=== PATIENT | female | born 1980 | race Two or more races ===

== ENCOUNTER 2024-01-16 14:21 | Outpatient (OUT) | payer OTHER, SELFPAY ==
[2024-01-16 15:08] LABS: Basophils Absolute Auto 0.1 10^3/uL (0.0-0.1); Basophils Percent Auto 0.5 % (0.2-2.0); Eosinophils Absolute Auto 0.2 10^3/uL (0.0-0.7); Eosinophils Percent Auto 2.1 % (0.9-7.0); Hematocrit 39.2 % (36.0-48.0); Hemoglobin 12.4 g/dL (12.0-16.0); Immature Granulocytes Abs Auto 0.04 10^3/uL (0.00-0.03); Immature Granulocytes Pct Auto 0.4 % (0.0-0.5); Lymphocytes Absolute Auto 2.7 10^3/uL (1.2-3.8); Lymphocytes Percent Auto 24.8 % (20.5-60.0); Mean Corpuscular HGB Conc 31.6 g/dL (29.9-35.2); Mean Corpuscular Hemoglobin 26.2 pg (26.7-34.0); Mean Corpuscular Volume 82.9 fL (81.0-99.0); Mean Platelet Volume 9.6 fL (9.5-13.5); Monocytes Absolute Auto 0.8 10^3/uL (0.3-0.8); Monocytes Percent Auto 7.5 % (1.7-12.0); Neutrophils Percent Auto 64.7 % (43.0-75.0); Platelet Count 449 10^3/uL (150-450); Red Blood Count 4.73 10^6/uL (4.20-5.40); Red Cell Distribution Width 14.7 % (11.0-15.0); White Blood Count 10.7 10^3/uL (4.0-11.0)
[2024-01-16 15:30] LABS: Estimated Average Glucose 151 mg/dL; Glycohemoglobin A1C 6.9 % (4.5-6.2)
[2024-01-16 16:00] LABS: Microalbumin Urine Random 5.8 mg/dL (<=30.0)
[2024-01-16 16:04] LABS: Percent Iron Saturation 9.9 %
[2024-01-16 16:11] LABS: Alanine Aminotransferase 46 U/L (14-59); Albumin Globulin Ratio 0.7; Albumin Level 3.2 g/dL (3.4-5.0); Alkaline Phosphatase 76 U/L (46-116); Anion Gap 11.8; Aspartate Amino Transferase 18 U/L (15-37); BUN Creatinine Ratio 17.3; Bilirubin Direct 0.1 mg/dL (0.0-0.2); Bilirubin Total 0.4 mg/dL (0.2-1.0); Calcium 8.5 mg/dL (8.5-10.1); Carbon Dioxide 29.8 mmol/L (21.0-32.0); Chloride 102 mmol/L (98-107); Chol HDL Ratio 3.9; Cholesterol 167 mg/dL (<=200); Estimated GFR (African America >60 (>=60); Estimated GFR (Non-African Ame >60 (>=60); Free T3 2.52 pg/mL (2.18-3.98); Globulin 4.7 g/dL; Glucose 100 mg/dL (74-106); HDL Cholesterol 43 mg/dL (40-60); Magnesium 1.8 mg/dL (1.8-2.4); Potassium 3.6 mmol/L (3.5-5.1); Sodium 140 mmol/L (136-145); Total Protein 7.9 g/dL (6.4-8.2); Triglycerides 183 mg/dL (<=150); VLDL CHOLESTEROL 36.6 mg/dL
[2024-01-16 16:12] LABS: Free T4 1.02 ng/dL (0.76-1.46)
== END 2024-01-16 14:22 | disposition home or self-care (01) ==
LOC: LAB 14:26
PROVIDERS: PCP Family Medicine; Visit Provider Family Medicine
DX: Z00.00 Encounter for general adult medical examination without abnormal findings (principal); E11.65 Type 2 diabetes mellitus with hyperglycemia
CPT/HCPCS: 36415; 80048; 80061; 80076; 82043; 83036; 83540; 83550; 83735; 84439; 84443; 84481; 85025

== ENCOUNTER 2025-02-14 13:17 | Outpatient (OUT) | payer OTHER, SELFPAY ==
--- NOTE | 2025-02-14 13:53 | MM_ITS ---
Patient Name: EL PATEL MR#: [id number] : 1980 Exam Date: 02/14/2025 Ordering Doctor: DR Gerson Stevenson . RADIOLOGY REPORT PROCEDURE: MM TOMOSYNTHESIS SCREENING BI COMPARISON: None. INDICATIONS: Screening Calculator Name NCI Breast Cancer Risk Assessment Tool 5 Year Breast Cancer Risk 0.40% Lifetime Breast Cancer Risk 5.00% Personal Breast Cancer No Personal Ovarian Cancer No Treatments None Family Cancers Aunt-maternal with breast cancer at age 55. LOCATION: [facility] BREAST COMPOSITION: There are scattered areas of fibroglandular density. FINDINGS: DIAGNOSTIC CATEGORY 1--NEGATIVE. LEFT BREAST: No significant suspicious finding. RIGHT BREAST: No significant suspicious finding. RECOMMENDATIONS: ROUTINE MAMMOGRAM AND CLINICAL EVALUATION IN 12 MONTHS. PLEASE NOTE: A NORMAL MAMMOGRAM DOES NOT EXCLUDE THE POSSIBILITY OF BREAST CANCER. A CLINICALLY SUSPICIOUS PALPABLE LUMP SHOULD BE BIOPSIED. Dictated by: Alvaro Walker DO on 02/14/2025 at 17:01 Approved by: Alvaro Walker DO on 02/14/2025 at 17:03
== END 2025-02-14 13:18 | disposition home or self-care (01) ==
LOC: MAMMO 13:17
PROVIDERS: PCP Family Medicine; Visit Provider Family Medicine
DX: Z12.31 Encounter for screening mammogram for malignant neoplasm of breast (principal); Z80.3 Family history of malignant neoplasm of breast
CPT/HCPCS: 77063; 77067

== ENCOUNTER 2025-02-15 09:19 | Outpatient (OUT) | payer OTHER, SELFPAY ==
--- OUTSIDE RECORDS SUMMARY | 2025-02-15 09:21 | XMS_ITS | CCD ---
Author Organization [facility] CliniSysd Care Team Providers Care 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 Name Role Phone ROJELIO, DR CHINEDU Atkinson Consulting Unavailable ROJELIO, DR CHINEDU Atkinson Attending Unavailable SERRATO, DR CHINEDU Atkinson Admitting Unavailable DANGELO, DR GERSON Robison Primary Care Unavailable MARKER, DR ROBLERO Consulting Unavailable MARKER, DR ROBLERO Attending Unavailable MARKER, DR ROBLERO Admitting Unavailable NADERER, DR GERSON Robison Primary Care Unavailable SCHREIBMANVANNA Consulting Unavailable CHIQUI, ADAM Consulting Unavailable CHIQUI, ADAM Attending Unavailable CHIQUI, ADAM Admitting Unavailable NADERER, DR GERSON Robison Primary Care Unavailable KLIPPANGELIKA, DEANDRA Consulting Unavailable MIKAL, DR ROLLE Consulting Unavailable GENTRY, NICOLASA Attending Unavailable GENTRY, NICOLASA Admitting Unavailable NADERER, DR GERSON Robison Primary Care Unavailable NICOLASA RINALDI Consulting Unavailable CHIQUI, ADAM Consulting Unavailable CHIQUI, ADAM Attending Unavailable CHIQUI, ADAM Admitting Unavailable NADERER, DR GERSON Robison Primary Care Unavailable NADERER, DR GERSON Robison Consulting Unavailable NADERER, DR GERSON Robison Primary Care Unavailable NADERER, DR GERSON Robison Attending Unavailable NADERER, DR GERSON Robison Admitting Unavailable POLICARO, SAHIL Consulting Unavailable NADERER, DR GERSON Robison Consulting Unavailable NADERER, DR GERSON Robison Primary Care Unavailable NADERER, DR GERSON Robison Attending Unavailable NADERER, DR GERSON Robison Admitting Unavailable NADERER, DR GERSON Robison Consulting Unavailable NADERER, DR GERSON Robison Primary Care Unavailable NADERER, DR GERSON Robison Attending Unavailable NADERER, DR GERSON Robison Admitting Unavailable ZIEBER, DR INGRID Atkinson Consulting Unavailable NADERER, DR GERSON Robison Primary Care Unavailable NADERER, DR GERSON Robison Attending Unavailable NADERER, DR GERSON Robison Admitting Unavailable NADERER, DR GERSON Robison Consulting Unavailable WEST, DR LIRIANO Consulting Unavailable NADERER, DR GERSON Robison Primary Care Unavailable NADERER, DR GERSON Robison Attending Unavailable NADERER, DR GERSON Robison Admitting Unavailable ZIEBER, DR INGRID Atkinson Consulting Unavailable NADERER, DR GERSON Robison Consulting Unavailable Scovanner, Roberto Unavailable MD Gerson Pierson Primary Care Provider [phone] MD Juarez Griffiths Attending Provider MD Gerson Pierson Primary Care Provider [phone] CHRISTIANE Diallo Attending Provider Gerson Pierson MD Primary Care Provider Gerson Pierson MD Unavailable GERSON PIERSON Attending Unavailable GERSON PIERSON Attending Unavailable FRANCHESCA BOTELLO Referring Unavailable FRANCHESCA BOTELLO Attending Unavailable GERSON PIERSON Attending Unavailable FRANCHESCA BOTELLO Referring Unavailable FRANCHESCA BOTELLO Attending Unavailable Ana Diallo Admitting Unavailable Ana Diallo Attending Unavailable Gerson Pierson Primary Care Unavailable Gerson Pierson Primary Care Unavailable Roberto Rodriguez Admitting Unavailable Roberto Rodriguez Attending Unavailable Gerson Pierson MD Primary Care Provider [phone] Roberto Rodriguez APRN Attending Provider Medications Current Medications Medication Drug Class(es) Dates Sig (Normalized) Sig (Original) atorvastatin 40 mg oral tablet (5 sources) HMG-CoA Reductase Inhibitor Start: 03-20-2024 take 1 tablet by mouth once daily Atorvastatin 40 mg tablet Active 40 MG PO Daily September 03, 2024 12:00am cholecalciferol 0.05 mg oral tablet (12 sources) Vitamin D Start: 08-14-2023 take 1 tablet by mouth once daily Cholecalciferol (Vitamin D3) 50 mcg (2,000 unit) tablet Active 50 MCG PO Daily August 14, 2023 12:00am take 1 capsule by [facility] every twenty-four hours Vitamin D3 50 MCG (1999 UT) 1 capsule Orally Once a day Active famotidine 40 mg oral tablet (10 sources) Histamine-2 Receptor Antagonist Start: 01-09-2024 End: 01-15-2025 take 1 tablet by mouth twice daily Famotidine 40 mg tablet Active 40 MG PO Twice daily 60 January 15, 2025 3:10pm Start: 09-18-2023 take [address] [facility] every twelve hours Famotidine 40 MG 1 TABLET Orally Twice a day for 30 days Aug, Active Glucose (5 sources) Glucose SOS 15 G M as directed Orally Active lamoTRIgine 25 mg oral tablet (6 sources) Mood Stabilizer, Anti-epileptic Agent Start: 08-02-2024 take 1 tablet by mouth once daily at bedtime, then take 2 tablets by mouth once daily at bedtime lamoTRIgine (LaMICtal) 25 MG tablet Indications: Major depressive disorder, recurrent episode, moderate (CMS/HCC) 1 PO QHS x 2 weeks then 2 PO QHS 60 tablet 3 08/02/2024 Active Start: 06-11-2024 take 2 tablets by mo uth once daily at bedtime Lamotrigine 25 mg tablet Active 50 MG PO Daily at bedtime June 11, 2024 12:00am Start: 06-11-2024 take 50 mg by mouth once daily at bedtime Lamotrigine Active 50 MG PO Daily at bedtime June 11, 2024 12:00am linaclotide 0.29 mg oral capsule (6 sources) Guanylate Cyclase-C Agonist Start: 06-11-2024 End: 07-07-2024 take 1 capsule by mouth once daily in the morning Linaclotide (Linzess) 290 mcg capsule Active 290 MCG PO Every morning as needed July 07, 2024 1:28pm Take 1 capsule orally every morning. losartan potassium 25 mg oral tablet (2 sources) Angiotensin 2 Receptor Keila Start: 01-24-2025 take 1 tablet by mouth once daily losartan (Cozaar) 25 MG tablet Indications: Essential hypertension, benign (CMS/HCC) Take 1 tablet (25 mg) by mouth Daily 30 tablet 5 01/24/2025 Active Start: 01-24-2025 take 1 tablet by raysa th once daily losartan (Cozaar) 25 MG tablet Indications: Essential hypertension, benign (CMS/HCC) Take 1 tablet (25 mg) by mouth Daily 30 tablet 5 01/24/2025 Active 24 hr metFORMIN hydrochloride 500 mg extended release oral tablet (15 sources) Biguanide Start: 08-26-2024 take 2 tablets by mouth every twenty-four hours in the morning metFORMIN XR (Glucophage-XR) 500 MG 24 hr tablet Indications: Type 2 diabetes mellitus with hyperglycemia, without long-term current use of insulin (CMS/HCC) Take 2 tablets (1,000 mg) by mouth in the morning and 2 tablets (1,000 mg) before bedtime. 360 tablet 08/26/2024 Active Start: 07-07-2024 Metformin 500 mg tablet extended release 24 hr Active 1000 MG PO Twice daily July 07, 2024 12:00am Start: 07-07-2024 take 1000 mg by mout h twice daily Metformin Active 1000 MG PO Twice daily July 07, 2024 12:00am Start: 08-14-2023 End: 07-07-2024 take 1 tablet by mouth twice daily Metformin 500 mg Tablet Discontinued 500 MG PO Twice daily August 14, 2023 12:00am July 07, 2024 1:31pm take 1 tablet by raysa th every twenty-four hours metFORMIN HCl 500 MG 1 tablet with a meal Orally Once a day Active metoprolol tartrate 25 mg oral tablet (17 sources) beta-Adrenergic Keila Start: 03-13-2018 take 1 tablet by mouth twice daily Metoprolol Tartrate 25 mg Tablet Active 25 MG PO Twice daily March 13, 2018 12:00am take 1 capsule by mouth once enoch ly Metoprolol Succinate 25 MG 1 capsule Orally Once a day Active Metoprolol Tartr ate Not-Taking/PRN Metoprolol Tartr ate Not-Taking ondansetron 4 mg oral tablet (14 sources) Serotonin-3 Receptor Antagonist Start: 03-30-2024 take 1 tablet by mouth three times daily as needed Ondansetron Hcl 4 mg tablet Active 4 MG PO Three times daily as needed June 11, 2024 12:00am Start: 09-18-2023 take 1 tablet by raysa th three times daily Ondansetron HCl 4 MG 1 tablet Orally three times daily for 30 days Aug, Active Zofran Active phentermine hydrochloride 37.5 mg oral tablet (8 sources) Sympathomimetic Amine Anorectic Start: 04-17-2024 End: 01-24-2025 take 1 tablet by mouth before mealtime phentermine (Adipex-P) 37.5 MG tablet Indications: Morbid obesity due to excess calories (CMS/HCC) Take 1 tablet (37.5 mg) by mouth in the morning. Take before meals. 30 tablet 04/17/2024 01/24/2025 Discontinued Adipex-P Not-Osvaldo ing/PRN Adipex-P Not-Osvaldo ing plecanatide 3 mg oral tablet (4 sources) Start: 01-15-2024 End: 01-24-2025 take 1 tablet by mouth in the morning Trulance tablet tablet Take 3 mg by mouth in the morning. 01/15/2024 01/24/2025 Discontinued Start: 09-18-2023 take 1 tablet by raysa twice daily Trulance 3 MG 1 tablet Orally twice daily for 30 days Aug, Active polyethylene glycol 3350 [id number] mg powder for oral solution (5 sources) Osmotic Laxative Start: 07-25-2023 MiraLax 17 GM 1 packet mixed with 8 ounces of fluid Orally three times daily for 30 days Jun, Active semaglutide 14 mg oral tablet (12 sources) Start: 05-07-2024 take 1 tablet by mouth before mealtime semaglutide (Rybelsus) 14 MG tablet Indications: Type 2 diabetes mellitus with hyperglycemia, without long-term current use of insulin ([facility]) Take 1 tablet (14 mg) by mouth in the morning. Take before meals. 30 tablet 5 05/07/2024 Active Start: 08-14-2023 End: 06-11-2024 take 1 tablet by mouth once daily Semaglutide (Rybelsus) 7 mg tablet Discontinued 7 MG PO Daily August 14, 2023 12:00am June 11, 2024 3:29pm Semaglutide (Rybelsus) 7 mg tablet (3 sources) Start: 06-11-2024 take 1 tablet by mouth once daily Semaglutide (Rybelsus) 7 mg tablet Active 14 MG PO Daily June 11, 2024 2:27pm Start: 06-11-2024 take 1 tablet by raysa once daily Semaglutide (Rybelsus) 7 mg tablet Active 14 MG PO Daily June 11, 2024 3:27pm sucralfate 100 mg/ml oral suspension (5 sources) Aluminum Complex take 10 mL by mouth four times daily 1 hour(s) before bedtime Sucralfate 1 GM/10ML 10 mL 1 hour before meals and at bedtime on an empty stomach Orally Four times a day Active take 10 mL by mouth four times daily 1 hour(s) before bedtime Sucralfate 1 GM/10ML 10 mL 1 hour before meals and at bedtime on an empty stomach Orally Four times a day Active temazepam 30 mg oral capsule (3 sources) Benzodiazepine Start: 02-15-2024 End: 01-24-2025 temazepam (Restoril) 30 MG capsule Indications: Primary insomnia Take 1 capsule (30 mg) by mouth as needed at bedtime for sleep 30 capsule 2 02/15/2024 01/24/2025 Discontinued tenapanor 50 mg oral tablet (2 sources) Tenapanor HCl (Ibsrela) 50 MG tablet Take by mouth Active Tenapanor (Ibsrela) 50 mg tablet (2 sources) Start: 09-03-2024 take 1 tablet by mouth once daily at dinner Tenapanor (Ibsrela) 50 mg tablet Active 50 MG PO Twice daily 60 September 03, 2024 12:00am must administer immediately before first meal of day/breakfast and dinner Start: 09-03-2024 take 1 tablet by raysa th once daily at dinner Tenapanor (Ibsrela) 50 mg tablet Active 50 MG PO Twice daily 60 September 02, 2024 11:00pm must administer immediately before first meal of day/breakfast and dinner traZODone hydrochloride 50 mg oral tablet (15 sources) Serotonin Reuptake Inhibitor Start: 03-16-2018 End: 07-07-2024 take 1 tablet by mouth once daily at bedtime as needed Trazodone 50 mg tablet Active 50 MG PO Daily at bedtime as needed July 07, 2024 1:30pm take 1 tablet by mouth at bedtim e traZODone (Desyrel) 100 MG tablet Take 100 mg by mouth at bedtime Active 24 hr venlafaxine 75 mg extended release oral capsule (20 sources) Serotonin and Norepinephrine Reuptake Inhibitor Start: 01-16-2024 take 1 capsule by mouth every twenty-four hours in the morning venlafaxine XR (Effexor XR) 150 MG 24 hr capsule Indications: Major depressive disorder, recurrent episode, moderate (CMS/HCC) Take 1 capsule (150 mg) by mouth in the morning. Do not crush or chew.. 30 capsule 5 01/16/2024 Active Start: 03-13-2018 End: 06-11-2024 take 1 capsule by mouth once daily Venlafaxine (Effexor Xr) 75 mg Capsule,Extended Release 24hr Discontinued 75 MG PO Daily March 16, 2018 1:19pm June 11, 2024 3:29pm Venlafaxine HCl Not-Taking/PRN Venlafaxine HCl Not-Taking Completed/Discontinued Medications Medication Drug Class(es) Dates Sig (Normalized) Sig (Original) amitriptyline hydrochloride 25 mg oral tablet (6 sources) Tricyclic Antidepressant Start: 06-11-2024 End: 07-07-2024 take 1 tablet by mouth once daily at bedtime Amitriptyline 25 mg tablet Discontinued 25 MG PO Daily at bedtime June 11, 2024 12:00am July 07, 2024 1:28pm amoxicillin 875 mg oral tablet (5 sources) Penicillin-class Antibacterial Start: 01-28-2017 take 1 tablet by mouth every twelve hours Amoxicillin 875 MG 1 tablet Orally every 12 hrs for 10 day(s) Jan, Not-Taking/PRN bisacodyl 5 mg delayed release oral tablet (3 sources) Stimulant Laxative Start: 06-11-2024 End: 07-07-2024 Bisacodyl (Dulcolax (Bisacodyl)) 5 mg tablet,delayed release (DR/EC) Discontinued 5 MG PO .prn as needed June 11, 2024 12:00am July 07, 2024 1:28pm Brompheniramine / Pseudoephedrine (5 sources) alpha-Adrenergic Agonist Start: 02-01-2017 take 10 mL by mouth every six hours as needed Bromfed DM 30-2-10 MG/5ML 10 ml as needed Orally every 6 hrs, prn for 10 days Jan, Not-Taking/PRN Start: 02-01-2017 take 10 mL by mouth every six hours as needed Bromfed DM 30-2-10 MG/5ML 10 ml as needed Orally every 6 hrs, prn for 10 days Jan, Not-Taking cephalexin 500 mg oral capsule (3 sources) Cephalosporin Antibacterial Start: 07-07-2024 End: 09-03-2024 take 1 capsule by mouth every eight hours Cephalexin 500 mg capsule Discontinued 500 MG PO Q8H 16 06July 07, 2024 12:00am September 03, 2024 2:05pm ciprofloxacin 3 mg/ml ophthalmic solution (3 sources) Quinolone Antimicrobial Start: 07-07-2024 End: 10-08-2024 Ciprofloxacin Hcl 0.3 % drops Discontinued 0 EYE-BOTH .COMPLEX 1 July 07, 2024 12:00am September 03, 2024 2:06pm put 1-2 drops in affected eye(s) every 2hr up to 8 times/day x2days; then 4 times/day x5days Eye-Both clonazePAM 0.5 mg oral tablet (9 sources) Benzodiazepine Start: 03-13-2018 End: 03-16-2018 take 1 tablet by mouth three times daily as needed for anxiety Clonazepam (Klonopin) 0.5 mg Tablet Discontinued 0.5 MG PO Three times daily as needed for Anxiety March 13, 2018 12:00am March 16, 2018 1:18pm clonazePAM Not-T aking/PRN clonazePAM Not-T aking fluticasone propionate 0.05 mg/actuat metered dose nasal spray (5 sources) Corticosteroid Start: 01-28-2017 take 1 spray(s) nasal route once daily as needed Fluticasone Propionate 50 MCG/ACT 1 spray in each nostril Nasally Once a day for 21 days Jan, Not-Taking/PRN Start: 01-28-2017 take 1 spray(s) nasa l route once daily Fluticasone Propionate 50 MCG/ACT 1 spray in each nostril Nasally Once a day for 21 days Jan, Not-Taking glipiZIDE 10 mg oral tablet (8 sources) Sulfonylurea Start: 01-09-2024 End: 06-11-2024 take 1 tablet by mouth once daily Glipizide 10 mg tablet Discontinued 10 MG PO Daily January 09, 2024 1:00am June 11, 2024 3:25pm take 1 tablet by raysa th once daily 30 minutes before breakfast glipiZIDE 10 MG 1 tablet 30 minutes before breakfast Orally Once a day Active hydroCHLOROthiazide 25 mg oral tablet (4 sources) Thiazide Diuretic Start: 03-16-2018 End: 08-14-2023 take 1 tablet by mouth once daily Hydrochlorothiazide 25 mg Tablet Discontinued 25 MG PO Daily March 16, 2018 12:00am August 14, 2023 1:23pm Ketorolac (10 sources) Nonsteroidal Anti-inflammatory Drug, Cyclooxygenase Inhibitor Start: 08-04-2016 Toradol per 15 mg 08 Jul, 2016 4 ug take 1 tablet by raysa th every six hours at mealtime as needed Ketorolac Tromethamine 10 MG 1 tablet wi th food or milk as needed Orally every 6 hrs Active lactulose 667 mg/ml oral solution (5 sources) Osmotic Laxative Start: 01-09-2024 End: 06-11-2024 take 1 mL by mouth twice daily Lactulose 10 gram/15 mL (15 mL) solution Discontinued 15 ML PO Twice daily January 09, 2024 1:00am June 11, 2024 3:26pm Start: 09-27-2023 take 15 mL by mouth twice shar y Lactulose 10 GM/15ML 15 mL twice a day Orally daily for 30 days Sep, Active Start: 09-27-2023 take 15 mL by mouth twice shar y Lactulose 10 GM/15ML 15 mL twice a day Orally daily for 30 days Sep, Active meloxicam 7.5 mg oral tablet (12 sources) Nonsteroidal Anti-inflammatory Drug Start: 06-11-2024 End: 01-15-2025 take 2 tablets by mouth once daily Meloxicam 7.5 mg tablet Discontinued 15 MG PO Daily June 11, 2024 3:26pm January 15, 2025 2:55pm Start: 06-11-2024 take 15 mg by mouth once daily Meloxicam Active 15 MG PO Daily June 11, 2024 3:26pm Start: 08-14-2023 End: 06-11-2024 take 1 tablet by mouth once daily Meloxicam 7.5 mg tablet Discontinued 7.5 MG PO Daily August 14, 2023 12:00am June 11, 2024 3:29pm omeprazole 40 mg delayed release oral capsule (12 sources) Proton Pump Inhibitor Start: 01-09-2024 End: 06-11-2024 Omeprazole 40 mg capsule,delayed release(DR/EC) Discontinued 40 MG PO Twice daily January 09, 2024 1:00am June 11, 2024 3:27pm Take 1 tablet orally 30 minutes before morning and evening meal Start: 08-14-2023 End: 06-11-2024 take 1 capsule by mouth once daily Omeprazole 40 mg capsule,delayed release(DR/EC) Discontinued 40 MG PO Daily August 14, 2023 12:00am June 11, 2024 3:27pm Plecanatide (Trulance) 3 mg tablet (3 sources) Start: 01-09-2024 End: 01-15-2025 take 1 tablet by mouth once daily Plecanatide (Trulance) 3 mg tablet Discontinued 3 MG PO Daily January 09, 2024 1:00am January 15, 2025 2:55pm Take 1 tablet orally once a day Start: 01-09-2024 End: 01-15-2025 take 1 tablet by mouth once daily Plecanatide (Trulance) 3 mg tablet Discontinued 3 MG PO Daily January 09, 2024 12:00am January 15, 2025 1:55pm Take 1 tablet orally once a day Start: 01-09-2024 take 1 tablet by raysa th once daily Plecanatide (Trulance) 3 mg tablet Active 3 MG PO Daily January 09, 2024 1:00am Take 1 tablet orally once a day sulfamethoxazole 800 mg / trimethoprim 160 mg oral tablet (4 sources) Dihydrofolate Reductase Inhibitor Antibacterial, Sulfonamide Antimicrobial Start: 03-16-2018 End: 01-09-2024 take 1 tablet by mouth twice daily Sulfamethoxazole-Trimethoprim 800-160 mg Tablet Discontinued 1 TAB PO Twice daily March 16, 2018 12:00am January 09, 2024 2:07pm TB Test (10 sources) Start: 10-30-2017 TB Test Oct, .01 mL Start: 10-31-2016 TB Test Oct 1 mL Problems Active Problems Problem Classification Problem Date Documented Da te Episodic/Chronic Abdominal pain (11 sources) Right upper quadrant pain; Translations: [Unspecified abdominal pain] Onset: 01-05-2023 Episodic Alcohol-related disorders (4 sources) Alcohol abuse; Translations: [Alcohol abuse, uncomplicated] 04-04-2018 Chronic Comment on above: Problem List clean-u p per request of Phys. EHR Cmte Anxiety disorders (5 sources) Generalized anxiety disorder; Translations: [Generalized anxiety disorder] Onset: 01-16-2024 01-16-2024 Chronic Diabetes mellitus with complications (14 sources) Type 2 diabetes mellitus with hyperglycemia; Translations: [Polyneuropathy due to diabetes mellitus] Onset: 02-04-2022 Chronic Diabetes mellitus without complication (1 source) Type 2 diabetes mellitus without complications; Translations: [TYPE 2 DM WITHOUT COMPLICATIONS] Onset: 11-30-2022 Chronic Esophageal disorders (17 sources) Gastro-esophageal reflux disease without esophagitis; Translations: [Gastroesophageal reflux disease] Onset: 01-09-2023 Chronic Essential hypertension (5 sources) Benign essential hypertension; Translations: [Essential (primary) hypertension] Onset: 01-16-2024 01-16-2024 Chronic Fluid and electrolyte disorders (1 source) Hypokalemia; Translations: [HYPOKALEMIA] Onset: 11-16-2022 Episodic Headache; including migraine (3 sources) Migraine without aura, not refractory ; Translations: [Migraine without aura, not intractable, without status migrainosus] Onset: 01-16-2024 01-16-2024 Chronic Inflammation; infection of eye (except that caused by tuberculosis or sexually transmitteddisease) (1 source) Unspecified acute conjunctivitis, bilateral; Translations: [Acute conjunctivitis, unspecified] 07-07-2024 Episodic Menstrual disorders (1 source) Amenorrhea, unspecified; Translations: [Absence of menstruation] 07-07-2024 Chronic Miscellaneous mental health disorders (5 sources) Primary insomnia; Translations: [Primary insomnia] Onset: 01-16-2024 01-16-2024 Chronic Mood disorders (9 sources) Major depression, single episode; Translations: [Major depressive disorder, single episode, unspecified] Onset: 01-16-2024 04-04-2018 Chronic Comment on above: Problem List clean-u p per request of Phys. EHR Cmte Nausea and vomiting (10 sources) Nausea with vomiting, unspecified; Translations: [Nausea] Onset: 11-13-2022 Episodic Noninfectious gastroenteritis (1 source) Noninfective gastroenteritis and colitis, unspecified; Translations: [NONINFECTIVE GE AND COLITIS UNS] Onset: 11-30-2022 Episodic Nutritional deficiencies (4 sources) Vitamin D deficiency, unspecified; Translations: [Vitamin D deficiency] Onset: 08-24-2022 01-16-2024 Chronic Other aftercare (1 source) Other nursing home (current) drug therapy; Translations: [OTH SENIOR LIVING CURRENT DRUG THERAPY] Onset: 11-30-2022 Episodic Other aftercare (1 source) 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; Translations: [SENIOR LIVING USE ORAL HYPOGLYCEMIC DX] Onset: 01-04-2023 Episodic Other circulatory disease (1 source) Other specified symptoms and signs involving the circulatory and respiratory systems; Translations: [OTH SPEC SX SIGNS INVLV CIRC RS] Onset: 11-30-2022 Episodic Other endocrine disorders (4 sources) Hypoglycemia, unspecified; Translations: [HYPOGLYCEMIA UNSPECIFIED] Onset: 09-02-2022 Chronic Other gastrointestinal disorders (5 sources) Irritable bowel syndrome characterized by constipation; Translations: [Irritable bowel syndrome without diarrhea] 01-09-2024 Chronic Other gastrointestinal disorders (3 sources) Irritable bowel syndrome with constipation; Translations: [Irritable bowel syndrome] Onset: 02-03-2025 06-11-2024 Chronic Other gastrointestinal disorders (1 source) Other constipation; Translations: [OTHER CONSTIPATION] Onset: 01-09-2023 Episodic Other gastrointestinal disorders (1 source) Diarrhea, unspecified; Translations: [DIARRHEA UNSPECIFIED] Onset: 11-16-2022 Episodic Other gastrointestinal disorders (5 sources) Constipation; Translations: [Constipation, unspecified] Episodic Other gastrointestinal disorders (3 sources) Constipation, unspecified Episodic Other gastrointestinal disorders (3 sources) Abdominal bloating; Translations: [Abdominal distension (gaseous)] 01-05-2024 Episodic Other gastrointestinal disorders (3 sources) Abdominal distension (gaseous); Translations: [Flatulence, eructation, and gas pain] Onset: 02-03-2025 06-11-2024 Episodic Other nutritional; endocrine; and metabolic disorders (1 source) Morbid obesity; Translations: [Morbid (severe) obesity due to excess calories] Onset: 01-16-2024 01-16-2024 Chronic Other nutritional; endocrine; and metabolic disorders (4 sources) Severe obesity; Translations: [Class 2 severe obesity due to excess calories with serious comorbidity and body mass index (BMI) of 39.0 to 39.9 in adult (CMS/[facility])] Onset: 01-16-2024 01-24-2025 Chronic Other screening for suspected conditions (not mental disorders or infectious disease) (2 sources) Patient encounter status; Translations: [Encounter for screening mammogram for malignant neoplasm of breast] 01-24-2025 Episodic Residual codes; unclassified (3 sources) Obstructive sleep apnea syndrome; Translations: [Obstructive sleep apnea (adult) (pediatric)] Onset: 01-16-2024 01-16-2024 Chronic Unclassified (1 source) COUGH, UNSPECIFIED; Translations: [COUGH, UNSPECIFIED] Onset: 11-30-2022 Unclassified (1 source) CONTACT W/AND (SUSP) EXPOS COVID-19; Translations: [CONTACT W/AND (SUSP) EXPOS COVID-19] Onset: 11-16-2022 Viral infection (1 source) COVID-19; Translations: [COVID-19] Onset: 11-30-2022 Past or Other Problems Problem Classification Problem Date Documented Da te Episodic/Chronic E Codes: Natural/environment (1 source) Exposure to other specified factors, initial encounter; Translations: [EXPOSURE OTHER SPEC FACTORS INITIAL] Onset: 06-28-2022 Episodic E Codes: Struck by; against (1 source) Other cause of strike by thrown, projected or falling object, initial encounter; Translations: [OTH CAUSE STRIK THRWN/FALL OBJ INIT] Onset: 07-25-2022 Episodic Genitourinary symptoms and ill-defined conditions (2 sources) Dysuria; Translations: [Dysuria] Onset: 07-07-2024 07-07-2024 Episodic Other injuries and conditions due to external causes (4 sources) Unspecified injury of right foot, initial encounter; Translations: [UNSPECIFIED INJURY RT FOOT INITIAL] Onset: 07-22-2022 Episodic Other injuries and conditions due to external causes (1 source) Unspecified injury of left lower leg, initial encounter; Translations: [UNS INJURY LT LOWER LEG INITIAL ENC] Onset: 06-28-2022 Episodic Other non-traumatic joint disorders (3 sources) Pain in left knee; Translations: [PAIN IN LEFT KNEE] Onset: 06-19-2022 Episodic Spondylosis; intervertebral disc disorders; other back problems (3 sources) Chronic low back pain; Translations: [Lumbago with sciatica, left side] Onset: 01-16-2024 01-16-2024 Episodic Results Test Name Value Interpretation Reference Range Facility Alanine aminotransferase [En zymatic activity/volume] in Serum or PlasmaOrdered By: Roberto Rodriguez on 02-03-2025 ALT [Catalytic activity/Vol] Alanine aminotransferase [Enzymatic activity/volume] in Serum or Plasma [facility] Albumin [Mass/volume] in Ser um or Plasma by Bromocresol green (BCG) dye binding methoOrdered By: Roberto Rodriguez on 02-03-2025 Albumin BCG dye [Mass/Vol] Albumin [Mass/volume] in Serum or Plasma by Bromocresol green (BCG) dye binding metho 3.5-5.7 [facility] Alkaline phosphatase [Enzyma tic activity/volume] in Serum or PlasmaOrdered By: Roberto Rodriguez on 02-03-2025 ALP [Catalytic activity/Vol] Alkaline phosphatase [Enzymatic activity/volume] in Serum or Plasma 34-104 [facility] Aspartate aminotransferase [ Enzymatic activity/volume] in Serum or PlasmaOrdered By: Roberto Rodriguez on 02-03-2025 AST [Catalytic activity/Vol] Aspartate aminotransferase [Enzymatic activity/volume] in Serum or Plasma Low 13-39 [facility] Basophils Auto (Bld) [#/Vol] Ordered By: Roberto Rodriguez on 02-03-2025 Basophils (Bld) [#/Vol] Automated basoph il count 0.0-0.2 [facility] Basophils/100 WBC Auto (Bld) Ordered By: Roberto Rodriguez on 02-03-2025 Basophils/100 WBC (Bld) Automated basophil % . [facility] Bilirubin.total [Mass/volume ] in Serum or PlasmaOrdered By: Roberot Rodriguez on 02-03-2025 Bilirubin [Mass/Vol] Bilirubin.total [Mass/volume] in Serum or Plasma 0.3-1.0 [facility] Calcium [Mass/volume] in Ser um or PlasmaOrdered By: Roberto Rodriguez on 02-03-2025 Calcium [Mass/Vol] Calcium [Mass/volume ] in Serum or Plasma 8.6-10.3 [facility] Carbon dioxide, total [Moles /volume] in Serum or PlasmaOrdered By: Roberto Rodriguez on 02-03-2025 CO2 [Moles/Vol] Carbon dioxide, tota l [Moles/volume] in Serum or Plasma 21.0-31.0 [facility] Chloride [Moles/volume] in S iveth or PlasmaOrdered By: Roberto Rodriguez on 02-03-2025 Chloride [Moles/Vol] Chloride [Moles/volume] in Serum or Plasma 98-107 [facility] Complete Blood Count Auto Di ffon 02-03-2025 Basophils (Bld) [#/Vol] 0.1 10*3/uL Normal 0.0-0.2 [facility] Comment on above: Result Comment: PERF ORMED BY: [place] [address] PATHOLOGIST COMPLAINT INSPECTOR RAY BANKS M.D. Performed By: #### C MP, CBC #### [address] Basophils/100 WBC (Bld) 0.5 % Normal . [facility] Comment on above: Performed By: #### C MP, CBC #### [address] Eosinophils (Bld) [#/Vol] 0.3 10*3/uL Normal 0.0-0.45 [facility] Comment on above: Performed By: #### C MP, CBC #### [address] Eosinophils/100 WBC (Bld) 2.8 % Normal . [facility] Comment on above: Performed By: #### C MP, CBC #### [address] Erythrocyte distribution width (RBC) [Ratio] 14.4 % Normal 11.9-15.3 [facility] Comment on above: Performed By: #### C MP, CBC #### [address] Hematocrit (Bld) [Volume fraction] 38.8 % Normal 34.0-46.4 [facility] Comment on above: Performed By: #### C MP, CBC #### [address] Hemoglobin (Bld) [Mass/Vol] 13.3 g/dL Normal 11.8-15.4 [facility] Comment on above: Performed By: #### C MP, CBC #### [address] Lymphocytes (Bld) [#/Vol] 2.3 10*3/uL Normal 1.00-4.8 [facility] Comment on above: Performed By: #### C MP, CBC #### [address] Lymphocytes/100 WBC (Bld) 22.8 % Normal . [facility] Comment on above: Performed By: #### C MP, CBC #### [address] MCH (RBC) [Entitic mass] 27.9 pg Normal 24.7-34.3 [facility] Comment on above: Performed By: #### C MP, CBC #### [address] MCV (RBC) [Entitic vol] 81.4 fL Normal 80-100 [facility] Comment on above: Performed By: #### C MP, CBC #### [address] Mean Corpuscular HGB Conc 34.3 g/dL Normal 32.0-35.0 [facility] Comment on above: Performed By: #### C MP, CBC #### [place] [address] [place] Monocytes (Bld) [#/Vol] 0.8 10*3/uL Normal 0.0-0.8 [facility] Comment on above: Performed By: #### C MP, CBC #### [address] Monocytes/100 WBC (Bld) 7.7 % Normal . [facility] Comment on above: Performed By: #### C MP, CBC #### [place] [address] [place] Neutrophils (Bld) [#/Vol] 6.8 10*3/uL Normal 1.8-7.7 [facility] Comment on above: Performed By: #### C MP, CBC #### [address] Neutrophils/100 WBC (Bld) 66.2 % Normal . [facility] Comment on above: Performed By: #### C MP, CBC #### [address] NRBC% 0.0 /100{WBC} Normal 0-0.5 [facility] Comment on above: Performed By: #### C MP, CBC #### [address] Platelet mean volume (Bld) [Entitic vol] 8.1 fL Normal 6.3-10.7 [facility] Comment on above: Performed By: #### C MP, CBC #### [address] Platelets (Bld) [#/Vol] 356 10*3/uL Normal 150-450 [facility] Comment on above: Performed By: #### C MP, CBC #### [address] RBC (Bld) [#/Vol] 4.77 10*6/uL Normal 3.60-5.00 [facility] Comment on above: Performed By: #### C MP, CBC #### [address] WBC (Bld) [#/Vol] 10.3 10*3/uL Normal 3.8-11.6 [facility] Comment on above: Performed By: #### C MP, CBC #### [address] Comprehensive Metabolic Pane trever 02-03-2025 Albumin [Mass/Vol] 4.0 g/dL Normal 3.5-5.7 [facility] Comment on above: Performed By: #### C MP, CBC #### [address] Albumin/Globulin [Mass ratio] 1.3 {ratio} Normal [facility] Comment on above: Performed By: #### C MP, CBC #### [address] ALP [Catalytic activity/Vol] 64 U/L Normal 34-104 [facility] Comment on above: Result Comment: PERF ORMED BY: [place] [address] PATHOLOGIST COMPLAINT INSPECTOR RAY BANKS M.D. Performed By: #### C MP, CBC #### [address] ALT [Catalytic activity/Vol] 16 U/L Normal 7-52 [facility] Comment on above: Performed By: #### C MP, CBC #### [address] Anion gap [Moles/Vol] 9.2 mmol/L Normal 6.0-15.0 [facility] Comment on above: Performed By: #### C MP, CBC #### [address] AST [Catalytic activity/Vol] 12 U/L Low 13-39 [facility] Comment on above: Performed By: #### C MP, CBC #### [address] Bilirubin [Mass/Vol] 0.6 mg/dL Normal 0.3-1.0 [facility] Comment on above: Performed By: #### C MP, CBC #### [address] Calcium [Mass/Vol] 9.3 mg/dL Normal 8.6-10.3 [facility] Comment on above: Performed By: #### C MP, CBC #### [address] Chloride [Moles/Vol] 104 mmol/L Normal 98-107 [facility] Comment on above: Performed By: #### C MP, CBC #### [place] [address] [place] CO2 [Moles/Vol] 30.7 mmol/L Normal 21.0-31.0 [facility] Comment on above: Performed By: #### C MP, CBC #### [place] [address] [place] Creatinine [Mass/Vol] 0.67 mg/dL Normal 0.60-1.20 [facility] Comment on above: Performed By: #### C MP, CBC #### [place] [address] [place] GFR/1.73 sq M.predicted MDRD (S/P/Bld) [Vol rate/Area] mL/min/{1.73_m2} Normal [facility] Comment on above: Performed By: #### C MP, CBC #### [address] Globulin (S) [Mass/Vol] 3.2 g/dL Normal T [facility] Comment on above: Performed By: #### C MP, CBC #### [address] Glucose [Mass/Vol] 94 mg/dL Normal 70-100 [facility] Comment on above: Result Comment: [facility] Glucose Reference Range is dependent on time and content of last meal. Glucose of more than 200 mg/dL in a nonstressed, ambulatory subject supports the diagnosis of Diabetes Mellitus. ADA recommended reference range Performed By: #### C MP, CBC #### [address] Potassium [Moles/Vol] 3.9 mmol/L Normal 3.5-5.1 [facility] Comment on above: Performed By: #### C MP, CBC #### [address] Protein [Mass/Vol] 7.2 g/dL Normal 6.4-8.9 [facility] Comment on above: Performed By: #### C MP, CBC #### [place] [address] [place] Sodium [Moles/Vol] 140 mmol/L Normal 136-145 [facility] Comment on above: Performed By: #### C MP, CBC #### [address] Urea nitrogen [Mass/Vol] 10 mg/dL Normal 7-25 [facility] Comment on above: Performed By: #### C MP, CBC #### [facility] [address] Creatinine [Mass/volume] in Serum or PlasmaOrdered By: Roberto Rodriguez on 02-03-2025 Creatinine [Mass/Vol] Creatinine [Mass/volume] in Serum or Plasma 0.60-1.20 [facility] Eosinophils Auto (Bld) [#/Vo l]Ordered By: Roberto Rodriguez on 02-03-2025 Eosinophils (Bld) [#/Vol] Automated eosinophil count 0.0-0.45 [facility] Eosinophils/100 WBC Auto (Bl d)Ordered By: Roberto Rodriguez on 02-03-2025 Eosinophils/100 WBC (Bld) Automated eosinophil % . [facility] Erythrocyte distribution wid th Auto (RBC) [Ratio]Ordered By: Roberto Rodriguez on 02-03-2025 Erythrocyte distribution width (RBC) [Ratio] Erythrocyte distribution width [Ratio] by Automated count 11.9-15.3 [facility] Globulin Calc (S) [Mass/Vol] Ordered By: Roberto Rodriguez on 02-03-2025 Globulin (S) [Mass/Vol] Serum globulin measurement by calculation (mass/volume) [facility] Glucose [Mass/volume] in Ser um or PlasmaOrdered By: Roberto Rodriguez on 02-03-2025 Glucose [Mass/Vol] Glucose [Mass/volume ] in Serum or Plasma 70-100 [facility] Comment on above: ADA recommended refe rence rangeRandom Glucose Reference Range is dependent on time and content of last meal. Glucose of more than 200 mg/dL in a nonstressed, ambulatory subject supports the diagnosis of Diabetes Mellitus. Hematocrit Auto (Bld) [Volum e fraction]Ordered By: Roberto Rodriguez on 02-03-2025 Hematocrit (Bld) [Volume fraction] Hematocrit [Volume Fraction] of Blood by Automated count 34.0-46.4 [facility] Hemoglobin [Mass/volume] in BloodOrdered By: Roberto Rodriguez on 02-03-2025 Hemoglobin (Bld) [Mass/Vol] Hemoglobin [Mass/volume] in Blood 11.8-15.4 [facility] Leukocytes [#/volume] correc miguel for nucleated erythrocytes in Blood by Automated counOrdered By: Roberto Rodriguez on 02-03-2025 WBC corrected for nucl RBC Auto (Bld) [#/Vol] Leukocytes [#/volume] corrected for nucleated erythrocytes in Blood by Automated coun 3.8-11.6 [facility] Lymphocytes Auto (Bld) [#/Vo l]Ordered By: Roberto Rodriguez on 02-03-2025 Lymphocytes (Bld) [#/Vol] Lymphocytes [#/volume] in Blood by Automated count 1.00-4.8 [facility] Lymphocytes/100 WBC Auto (Bl d)Ordered By: Roberto Rodriguez on 02-03-2025 Lymphocytes/100 WBC (Bld) Lymphocytes/100 leukocytes in Blood by Automated count . [facility] MCH Auto (RBC) [Entitic mass ]Ordered By: Roberto Rodriguez on 02-03-2025 MCH (RBC) [Entitic mass] MCH [Entitic mass] by Automated count 24.7-34.3 [facility] MCHC Auto (RBC) [Mass/Vol]Or dered By: Roberto Rodriguez on 02-03-2025 MCHC (RBC) [Mass/Vol] MCHC [Mass/volume] by Automated count 32.0-35.0 [facility] MCV Auto (RBC) [Entitic vol] Ordered By: Roberto Rodriguez on 02-03-2025 MCV (RBC) [Entitic vol] MCV [Entitic vol ume] by Automated count 80-100 [facility] Monocytes Auto (Bld) [#/Vol] Ordered By: Roberto Rodriguez on 02-03-2025 Monocytes (Bld) [#/Vol] Automated blood monocyte count 0.0-0.8 [facility] Monocytes/100 WBC Auto (Bld) Ordered By: Roberto Rodriguez on 02-03-2025 Monocytes/100 WBC (Bld) Automated monocyte % . [facility] Neutrophils Auto (Bld) [#/Vo l]Ordered By: Roberto Rodriguez on 02-03-2025 Neutrophils (Bld) [#/Vol] Neutrophils [#/volume] in Blood by Automated count 1.8-7.7 [facility] Neutrophils/100 WBC Auto (Bl d)Ordered By: Roberto Rodriguez on 02-03-2025 Neutrophils/100 WBC (Bld) Automated neutrophil % . [facility] No Panel InformationOrdered By: Roberto Rodriguez on 02-03-2025 Estimated GFR (CKD-EPI) > 60.0 mL/Min [facility] Creatinine Clearance (Chem N/A [facility] Nucleated erythrocytes [Pres ence] in Blood by Automated countOrdered By: Roberto Rodriguez on 02-03-2025 Nucleated RBC Auto Ql (Bld) Nucleated erythrocytes [Presence] in Blood by Automated count 0-0.5 [facility] Platelet mean volume Auto (B ld) [Entitic vol]Ordered By: Roberto Rodriguez on 02-03-2025 Platelet mean volume (Bld) [Entitic vol] Platelet mean volume [Entitic volume] in Blood by Automated count 6.3-10.7 [facility] Platelets Auto (Bld) [#/Vol] Ordered By: Roberto Rodriguez on 02-03-2025 Platelets (Bld) [#/Vol] Platelets [#/vol ume] in Blood by Automated count 150-450 [facility] Potassium [Moles/volume] in Serum or PlasmaOrdered By: Roberto Rodriguez on 02-03-2025 Potassium [Moles/Vol] Potassium [Moles/volume] in Serum or Plasma 3.5-5.1 [facility] Protein [Mass/volume] in Ser um or PlasmaOrdered By: Roberto Rodriguez on 02-03-2025 Protein [Mass/Vol] Protein [Mass/volume ] in Serum or Plasma 6.4-8.9 [facility] RBC Auto (Bld) [#/Vol]Ordere d By: Roberto Rodriguez on 02-03-2025 RBC (Bld) [#/Vol] Erythrocytes [#/volume] in Blood by Automated count 3.60-5.00 [facility] Serum or plasma albumin/glob ulin mass ratioOrdered By: Roberto Rodriguez on 02-03-2025 Albumin/Globulin [Mass ratio] Serum or plasma albumin/globulin mass ratio [facility] Serum or plasma anion gap de terminationOrdered By: Roberto Rodriguez on 02-03-2025 Anion gap [Moles/Vol] Serum or plasma an ion gap determination 6.0-15.0 [facility] Sodium [Moles/volume] in Ser um or PlasmaOrdered By: Roberto Rodriguez on 02-03-2025 Sodium [Moles/Vol] Sodium [Moles/volume ] in Serum or Plasma 136-145 [facility] US abdomen limitedon 025 US abdomen limited [facility] [place] [address] Ultrasound Report Signed Patient: Nia Schofield MR#: [id number] : 1980 Acct:[id number] Age/Sex: 44 / F ADM Date: 02/03/25 Loc: Room: Type: [facility] Attending Dr: Roberto Rodriguez [employer] Ordering Provider: Roberto Rodriguez APRN Date of Service: 02/03/25 US/US abdomen limited: K58.1 - Irritable bowel syndrome with constipation Copies to: Roberto Rodriguez APRN LIMITED ABDOMINAL ULTRASOUND: CLINICAL HISTORY: Irritable bowel syndrome with constipation bloating and pain COMPARISON: None TECHNIQUE: Grayscale and color Doppler images of the right upper quadrant organs were obtained. FINDINGS: Pancreas: Visualized portions appear unremarkable. Liver: Unremarkable. Gallbladder: Unremarkable. CBD: 4.1 mm US/US abdomen limited IMPRESSION: NO ACUTE PROCESS. . Impression dictated by: Alvaro Walker Jr., D.OMackenzie02/03/2025 11:52 AM Dictation Location: [place] [address] Tech: Judy Barraza Transcribed By: ONOFRE 02/03/25 1152 Dictated By: Alvaro Walker Jr, DO 02/03/25 1151 Signed By: 02/03/25 1152 Normal [facility] Urea nitrogen [Mass/volume] in Serum or PlasmaOrdered By: Roberto Rodriguez on 02-03-2025 Urea nitrogen [Mass/Vol] Urea nitrogen [Mass/volume] in Serum or Plasma 06-20 [facility] WBC Auto (Bld) [#/Vol]Ordere d By: Roberto Rodriguez on 02-03-2025 WBC (Bld) [#/Vol] Leukocytes [#/volume ] in Blood by Automated count 3.8-11.6 [facility] Urine Cultureon 07-07-2024 Bacteria identified Cx Nom (U) ORGANISM: Escherichia coli (MDRO) (O:ESCCOLMDRO) [place] Count >100,000 Aerobic FCO Charge (NMIC56) --- SUSCEPTIBILITY -- ORGANISM: O:ESCCOLMDRO ANTIBIOTIC INTERPRETATION FCO Amikacin S <16 Amoxacillin/K Clavulanate S <8 Ampicillin R >16 Ampicillin/Sulbactam R >16 Aztreonam S <4 Cefazolin S <2 Cefepime S <2 Ceftazidime S <1 Ceftazidime/Avibactam S <4 Ceftolozane/Tazobactam S <2 Ceftriaxone S <1 Cefuroxime S <4 Ciprofloxacin S <0.25 Ertapenem S <0.5 Gentamicin S <2 Levofloxacin S <0.5 Meropenem S <1 Meropenem/Vaborbactam S <2 Nitrofurantoin S <32 Piperacillin/Tazobacta m S <8 Tetracycline R >8 Tigecycline S <2 Tobramycin S <2 Trimethoprim/Sulfameth oxazole R >2 S = SUSCEPTIBLE I = INTERMEDIATE R = RESISTANT BLANK = DATA NOT AVAILABLE, OR DRUG NOT ADVISABLE OR TESTED R* = RESISTANCE DUE TO EXTENDED SPECTRUM BETA-LACTAMASES ESBL = EXTENDED SPECTRUM BETA-LACTAMASE TFG = THYMIDINE-DEPENDENT STRAIN PETTY = BETA-LACTAMASE POSITIVE IB = INDUCIBLE BETA-LACTAMASE. APPEARS IN PLACE OF 'S' WITH SPECIES KNOWN TO POSSESS INDUCIBLE BETA-LACTAMASES. POTENTIALLY THEY MAY BECOME RESISTANT TO ALL B-LACTAM DRUGS. PERFORMED BY: [place] [address] PATHOLOGIST COMPLAINT INSPECTOR DAWSON FAIR M.D. Normal [facility] Comment on above: Performed By: #### C UU #### [address] MR KNEE LEFT WO IV CONTRASTo n 03-21-2024 MR KNEE LEFT WO IV CONTRAST EXAMINATION: MR KNEE LEFT WO IV CONTRAST HISTORY: Left knee sprain medial pain and swelling. Twisting injury. Denies prior left knee surgery. TECHNIQUE: Routine non-contrast MRI of the knee, LEFT COMPARISON: Radiographs 02/20/2024. MRI 05/19/2022. RESULT: MENISCI: Medial Meniscus: Complex tearing, similar to the prior MRI with near complete radial tear at the posterior root and also tearing involving the posterior horn and body. Lateral Meniscus: Intact LIGAMENTS: ACL, PCL, MCL, and LCL complex intact. CARTILAGE: Small to moderate area of full-thickness chondral loss involving the superior patella. Moderate area of high-grade partial-thickness chondral loss involving the medial femoral condyle. Small osteophytes. TENDONS: Distal quadriceps intact. Patellar tendon intact. Popliteus intact. BONES AND MARROW: No evidence of fracture or bone marrow replacing process. MUSCLES: Muscle bulk and signal intensity are normal. JOINT FLUID AND SYNOVIUM: No joint effusion. No synovitis. No Griffith's cyst. OTHER: No other significant abnormality. IMPRESSION: Medial meniscal tear, similar to prior MRI. Degenerative changes as discussed. ELECTRONICALLY SIGNED BY: Tobias Galarza MD Normal Not Available Comment on above: Order Comment: Patie nt is Diabetic Previous MRI Amphetamine Screen Ql (U)Ord ered By: Juarez Griffiths on 08-14-2023 Amphetamines Ql (U) Negative Negative [facility] Barbiturates [Presence] in U rine by Screen methodOrdered By: Juarez Griffiths on 08-14-2023 Barbiturates Screen Ql (U) Negative Negative [facility] Benzodiazepines Screen Ql (U )Ordered By: Juarez Griffiths on 08-14-2023 Benzodiazepines Ql (U) Negative Negative [facility] Benzoylecgonine [Presence] i n Urine by Screen methodOrdered By: Juarez Griffiths on 08-14-2023 Benzoylecgonine Screen Ql (U) Negative Negative [facility] Cannabinoids [Presence] in U rine by Screen methodOrdered By: Juarez Griffiths on 08-14-2023 Cannabinoids Screen Ql (U) Negative Negative [facility] Comment on above: These are unconfirme d results and should not be used for legal purposes. Drug Cut-Off Concentration: AMPH 1000 ng/mL BRISEIDA 200 ng/mL RUBEN 200 ng/mL COCM 300 ng/mL OP 300 ng/mL PCP 25 ng/mL THC 20 ng/mL Glucose Glucometer (BldC) [M ass/Vol]Ordered By: Juarez Griffiths on 08-14-2023 Glucose [Mass/Vol] 129 mg/dL [facility] Comment on above: Random Glucose Refer ence Range is dependent on time and content of last meal. Glucose of more than 200 mg/dL in a nonstressed, ambulatory subject supports the diagnosis of Diabetes Mellitus. HCG ( test) IA.rapi d Ql (U)Ordered By: Juarez Griffiths on 08-14-2023 HCG ( test) Ql (U) Negative [facility] No Panel InformationOrdered By: Juarez Griffiths on 08-14-2023 Bedside Glucose Comment Glu2: cleaned meter [facility] Opiates [Presence] in Urine by Screen methodOrdered By: Juarez Griffiths on 08-14-2023 Opiates Screen Ql (U) Negative Negative [facility] Phencyclidine Screen Ql (U)O rdered By: Juarez Griffiths on 08-14-2023 Phencyclidine Ql (U) Negative Negative [facility] NM HEPATOBILIARY SCAN W EFon 01-05-2023 NM HEPATOBILIARY SCAN W EF HIDA SCAN WITH GALLBLADDER EJECTION FRACTION HISTORY: Abdominal Pain. COMPARISON: Ultrasound 12/05/2022. METHOD: Following IV injection of 4.9 mCi of [id number], anterior imaging of the abdomen was acquired for 60 minutes. After the gallbladder was visualized the patient was given 8 ounces of Ensure and the gallbladder ejection fraction was calculated. FINDINGS: There is satisfactory uptake of radiopharmaceutical by the liver. The gallbladder, bile duct, and bowel are seen in the expected period of time and sequence. The gallbladder ejection fraction is normal at 89%. IMPRESSION: Normal hepatic biliary scintigraphy and gallbladder ejection fraction. Electronically authenticated by: SAHIL GARZA Date: 2023-01-05 14:25 Normal [facility] XR ABD FLAT_UPon 12-30-2022 XR ABD FLAT_UP EXAMINATION: XR ABD FLAT_UP HISTORY: Constipation , right upper quadrant pain, nausea, vomiting, diarrhea COMPARISON: No relevant comparison available. FINDINGS: BOWEL GAS PATTERN: No abnormal dilation or deviation. Moderate amount of stool throughout the colon. CALCIFICATIONS: None significant. OTHER: Bilateral fallopian tube occlusive devices. IMPRESSION: 1. Normal bowel gas pattern. Moderate stool burden. Electronically authenticated by: INGRID YATES Date: 2022-12-30 08:55 Normal [facility] US SINGLE QUAD RT UPPERon US SINGLE QUAD RT UPPER EXAMINATION: US SINGLE QUAD RT UPPER HISTORY: Right upper quadrant pain COMPARISON: No relevant comparison available. TECHNIQUE: Transabdominal evaluation of the right upper quadrant. FINDINGS: LIVER: Normal size and echotexture. Color Doppler demonstrates patent hepatic veins. PORTAL VEIN: Duplex Doppler demonstrates normal hepatopetal flow pattern with flow velocity averaging 34 cm/s. GALLBLADDER: No visible gallstones, wall thickening, or pericholecystic free fluid. Negative sonographic Hobbs's sign. BILIARY: No abnormal dilation or stones. Common bile duct diameter is within normal limits. PANCREASE: No visible mass, abnormal atrophy, or duct dilation. KIDNEY: No hydronephrosis. No visible mass or stones. Size: 12.9 x 6.6 x 5.2 cm IMPRESSION: 1. Normal right upper quadrant ultrasound. Electronically authenticated by: INGRID YATES Date: 2022-12-05 12:32 Normal [facility] AMYLASEon 11-25-2022 Amylase [Catalytic activity/Vol] 50 U/L Normal 25-115 [facility] Comment on above: Performed By: #### C MP, PIA, LIPA #### [facility] [address] [place] [address] [address] Bri Light CBC AUTO DIFFon 11-25-2022 BASO # 0.0 103/ul Normal 0.0-0.1 [facility] Comment on above: Performed By: #### C MP PIA, LIPA #### [facility] [address] [place] [address] [address] Bri Light Basophils/100 WBC (Bld) 0.2 % Normal 0.2-2.[address] [facility] Comment on above: Performed By: #### C MP PIA, LIPA #### [facility] Laboratory [address] [address] [address] Bri Light EO # 0.1 103/ul Normal 0.0-0.7 [facility] Comment on above: Performed By: #### C PIA BONE LIPA #### [facility] [address] [place] [address] Dr. Bri Light Eosinophils/100 WBC (Bld) 1.3 % Normal 0.9-7.0 [facility] Comment on above: Performed By: #### C PIA BONE LIPA #### [facility] [address] [place] [address] Dr. Bri Light Erythrocyte distribution width (RBC) [Ratio] 14.6 % Normal 11.0-15.0 [facility] Comment on above: Performed By: #### C PIA BONE LIPA #### [facility] [address] [place] [address] Dr. Bri Light Hematocrit (Bld) [Volume fraction] 39.4 % Normal 36.0-48.0 [facility] Comment on above: Performed By: #### C PIA BONE LIPA #### [facility] [address] [place] [address] Dr. Bri Light Hemoglobin (Bld) [Mass/Vol] 12.7 g/dL Normal 12.0-16.0 [facility] Comment on above: Performed By: #### C PIA BONE LIPA #### [facility] [address] [place] [address] Dr. Bri Light IG # 0.04 10e3/ul Critically high 0.00-0.03 [facility] Comment on above: Performed By: #### C PIA BONE LIPA #### [facility] [address] [place] [address] Dr. Bri Light IG % 0.4 % Normal 0.0-0.5 [facility] Comment on above: Performed By: #### C PIA BONE LIPA #### [facility] [address] [place] [address] Dr. Bri Light LYMPH # 1.3 103/ul Normal 1.2-3.8 [facility] Comment on above: Performed By: #### C PIA BONE LIPA #### [facility] [address] [place] [address] Dr. Bri Light Lymphocytes/100 WBC (Bld) 12.5 % Critically low 20.5-60.0 [facility] Comment on above: Performed By: #### C MP, PIA, LIPA #### [facility] [address] [address] [address] Bri Light MANUAL DIFF REQ NO Normal [facility] Comment on above: Performed By: #### C MP, PIA, LIPA #### [facility] [address] [place] [address] Dr. Bri Light MCH (RBC) [Entitic mass] 26.2 pg Critically low 26.7-34.0 [facility] Comment on above: Performed By: #### C MP, PIA, LIPA #### [facility] [address] [place] [address] Dr. Bri Light MCHC (RBC) [Mass/Vol] 32.2 g/dL Normal 29.9-35.2 [facility] Comment on above: Performed By: #### C MP, PIA, LIPA #### [facility] [address] [place] [address] Dr. Bri Light MCV (RBC) [Entitic vol] 81.2 fL Normal 81.0-99.[address] [facility] Comment on above: Performed By: #### C MP, PIA, LIPA #### [facility] [address] [place] [address] Dr. Bri Light MONO # 1.0 103/ul Critically high 0.3-0.8 [facility] Comment on above: Performed By: #### C MP, PIA, LIPA #### [facility] [address] [place] [address] Dr. Bri Light Monocytes/100 WBC (Bld) 9.2 % Normal 1.7-12.[address] [facility] Comment on above: Performed By: #### C MP, PIA, LIPA #### [facility] [address] [place] [address] Dr. Bri Light NEUT # 7.9 103/ul Critically high 1.4-6.[address] [facility] Comment on above: Performed By: #### C PIA BONE LIPA #### [facility] [address] [place] [address] Dr. Bri Light Neutrophils/100 WBC (Bld) 76.4 % Critically high 43.0-75.0 [facility] Comment on above: Performed By: #### C PIA BONE LIPA #### [facility] [address] [place] [address] Dr. Bri Light Platelet mean volume (Bld) [Entitic vol] 9.2 fL Critically low 9.5-13.5 [facility] Comment on above: Performed By: #### C PIA BONE LIPA #### [facility] [address] [place] [address] Dr. Bri Light PLT 370 103/ul Normal 150-450 [facility] Comment on above: Performed By: #### C PIA BONE LIPA #### [facility] [address] [place] [address] Dr. Bri Light RBC 4.85 106/ul Normal 4.20-5.40 [facility] Comment on above: Performed By: #### C PIA BONE LIPA #### [facility] [address] [place] [address] Dr. Bri Light WBC 10.4 103/ul Normal 4.0-11.0 [facility] Comment on above: Performed By: #### C PIA BONE LIPA #### [facility] [address] [place] [address] Dr. Bri Light Covid-19 PCR (CVDTB)on 10-29 SARS-CoV-2 (COVID-19) RNA CAMDEN+probe Ql (Unsp spec) Detected Abnormal NOT DETECTED [facility] Comment on above: Result Comment: This test is not yet approved or cleared by the [place] FDA. When there are no FDA-approved or cleared tests available, and other criteria are met, FDA can make tests available under an emergency access mechanism called an Emergency Use Authorization (EUA). The EUA for this test is supported by the [employer] of Health and Human Service's declaration that circumstances exist to justify the emergency use of in vitro diagnostics for the detection and/or diagnosis of the virus that causes COVID-19. This EUA will remain in effect for the duration of the COVID-19 declaration justifying emergency of IVDs, unless it is terminated or revoked by the FDA (after which the test may no longer be used). Performed By: #### C VDTBH #### [facility] [address] [place] [address] Dr. Bri Light INFLUENZA A AND B AGon 11-25 INFLUANEGH SEE BELOW Normal [facility] Comment on above: Result Comment: Nega tive for Flu A protein angiten. Infection due to Flu A cannot be ruled out. Flu A angiten in the sample may be below the detection limit of the test. Performed By: #### I NFLUAB #### [facility] [address] [place] [address] Dr. Bri Light INFLUBNEG SEE BELOW Normal [facility] Comment on above: Result Comment: Nega tive for Flu B protein antigen. Infection due to Flu B cannot be ruled out. Flu B antigen in the sample may be below the detection limit of the test. Performed By: #### I NFLUAB #### [facility] [address] [place] [address] Dr. Bri Light INFLUENZA A AG Negative Normal NEGATIVE SEE COMMENT [facility] Comment on above: Performed By: #### I NFLUAB #### [facility] [address] [place] [address] Dr. Bri Light INFLUENZA B AG Negative Normal NEGATIVE SEE COMMENT [facility] Comment on above: Performed By: #### I NFLUAB #### [facility] [address] [place] [address] Dr. Bri Light LIPASEon 11-25-2022 Lipase [Catalytic activity/Vol] 146.0 U/L Normal 73.0-393.0 [facility] Comment on above: Performed By: #### C MP, PIA, LIPA #### [facility] [address] [place] [address] Dr. Bri Light PROF 14(COMP METB)on 022 Albumin [Mass/Vol] 3.4 g/dL Normal 3.4-5.0 [facility] Comment on above: Performed By: #### C PIA BONE LIPA #### [facility] [address] [address] [address] Bri Light Albumin/Globulin [Mass ratio] 0.7 {ratio} Normal [facility] Comment on above: Performed By: #### C PIA BONE, LIPA #### [facility] [address] [address] [address] Bri Light ALP [Catalytic activity/Vol] 84 U/L Normal 46-116 [facility] Comment on above: Performed By: #### C PIA BONE LIPA #### [facility] [address] [address] [address] Bri Light ALT [Catalytic activity/Vol] 40 U/L Normal 14-59 [facility] Comment on above: Performed By: #### C PIA BONE LIPA #### [facility] [address] [address] [address] Bri Light Anion gap [Moles/Vol] 11.2 mmol/L Normal [facility] Comment on above: Performed By: #### C PIA BONE, LIPA #### [facility] [address] [address] [address] Bri Light AST [Catalytic activity/Vol] 23 U/L Normal 15-37 [facility] Comment on above: Performed By: #### C PIA BONE LIPA #### [facility] [address] [address] [address] Bri Light Bilirubin [Mass/Vol] 0.5 mg/dL Normal 0.2-1.0 [facility] Comment on above: Performed By: #### C PIA BONE, LIPA #### [facility] [address] [address] [address] Bri Light Calcium [Mass/Vol] 8.6 mg/dL Normal 8.5-10.1 [facility] Comment on above: Performed By: #### C PIA BONE, LIPA #### [facility] [address] [address] [address] Bri Light Chloride [Moles/Vol] 99 mmol/L Normal 98-107 [facility] Comment on above: Performed By: #### C MP, PIA, LIPA #### [facility] [address] [address] [address] Bri Light CO2 [Moles/Vol] 29.0 mmol/L Normal 21.0-32.0 [facility] Comment on above: Performed By: #### C MP, PIA, LIPA #### [facility] [address] [address] [address] Bri Light Creatinine [Mass/Vol] 0.77 mg/dL Normal 0.55-1.02 [facility] Comment on above: Performed By: #### C MP, PIA, LIPA #### [facility] [address] [place] [address] Dr. Bri Light EGFR-AF BURKINAN >60 Normal >=60 [facility] Comment on above: Performed By: #### C MP, PIA, LIPA #### [facility] [address] [address] [address] Bri Light EGFR-NON AF BURKINAN >60 Normal >=60 [facility] Comment on above: Performed By: #### C MP, PIA, LIPA #### [facility] [address] [address] [address] Bri Light Globulin (S) [Mass/Vol] 4.6 g/dL Normal [facility] Comment on above: Performed By: #### C MP, PIA, LIPA #### [facility] [address] [address] [address] Bri Light Glucose [Mass/Vol] 130 mg/dL Critically high 74-[address] [facility] Comment on above: Performed By: #### C MP, PIA, LIPA #### [facility] [address] [address] [address] Bri Light Potassium [Moles/Vol] 3.2 mmol/L Critically low 3.5-5.1 [facility] Comment on above: Performed By: #### C MP PIA, LIPA #### [facility] [address] [place] [address] Dr. Bri Light Protein [Mass/Vol] 8.0 g/dL Normal 6.4-8.2 [facility] Comment on above: Performed By: #### C MP PIA, LIPA #### [facility] [address] [place] [address] Dr. Bri Light Sodium [Moles/Vol] 136 mmol/L Normal 136-145 [facility] Comment on above: Performed By: #### C MP PIA, LIPA #### [facility] [address] [place] [address] Dr. Bri Light Urea nitrogen [Mass/Vol] 11.0 mg/dL Normal 7.0-18.0 [facility] Comment on above: Performed By: #### C LIZANDRO PIA, LIPA #### [facility] [address] [place] [address] Dr. Bri Light Urea nitrogen/Creatinine [Mass ratio] 14.3 mg/mg Normal [facility] Comment on above: Performed By: #### C PIA BONE, LIPA #### [facility] [address] [place] [address] Dr. Bri Light CBC AUTO DIFFon 11-13-2022 BASO # 0.0 103/ul Normal 0.0-0.1 [facility] Comment on above: Performed By: #### C BC #### [facility] [address] [place] [address] Dr. Bri Light Basophils/100 WBC (Bld) 0.2 % Normal 0.2-2.[address] [facility] Comment on above: Performed By: #### C BC #### [facility] [address] [place] [address] Dr. Bri Light EO # 0.2 103/ul Normal 0.0-0.7 [facility] Comment on above: Performed By: #### C BC #### [facility] [address] [place] [address] Dr. Bri Lihgt Eosinophils/100 WBC (Bld) 2.0 % Normal 0.9-7.0 [facility] Comment on above: Performed By: #### C BC #### [facility] [address] [place] [address] Dr. rBi Light Erythrocyte distribution width (RBC) [Ratio] 14.7 % Normal 11.0-15.0 [facility] Comment on above: Performed By: #### C BC #### [facility] [address] [place] [address] Dr. Bri Light Hematocrit (Bld) [Volume fraction] 39.9 % Normal 36.0-48.0 [facility] Comment on above: Performed By: #### C BC #### [facility] [address] [place] [address] Dr. Bri Light Hemoglobin (Bld) [Mass/Vol] 13.1 g/dL Normal 12.0-16.0 [facility] Comment on above: Performed By: #### C BC #### [facility] [address] [place] [address] Dr. Bri Light IG # 0.03 10e3/ul Normal 0.00-0.03 [facility] Comment on above: Performed By: #### C BC #### [facility] [address] [place] [address] Dr. Bri Light IG % 0.3 % Normal 0.0-0.5 [facility] Comment on above: Performed By: #### C BC #### [facility] [address] [place] [address] Dr. Bri Light LYMPH # 2.2 103/ul Normal 1.2-3.8 [facility] Comment on above: Performed By: #### C BC #### [facility] [address] [place] [address] Dr. Bri Light Lymphocytes/100 WBC (Bld) 21.8 % Normal 20.5-60.0 [facility] Comment on above: Performed By: #### C BC #### [facility] [address] [place] [address] Dr. Bri Light MANUAL DIFF REQ NO Normal [facility] Comment on above: Performed By: #### C BC #### [facility] [address] [place] [address] Dr. Bri Light MCH (RBC) [Entitic mass] 26.7 pg Normal 26.7-34.0 [facility] Comment on above: Performed By: #### C BC #### [facility] [address] [place] [address] Dr. Bri Light MCHC (RBC) [Mass/Vol] 32.8 g/dL Normal 29.9-35.2 [facility] Comment on above: Performed By: #### C BC #### [facility] [address] [place] [address] Dr. Bri Light MCV (RBC) [Entitic vol] 81.3 fL Normal 81.0-99.[address] [facility] Comment on above: Performed By: #### C BC #### [facility] [address] [place] [address] Dr. Bri Light MONO # 1.1 103/ul Critically high 0.3-0.8 [facility] Comment on above: Performed By: #### C BC #### [facility] [address] [place] [address] Dr. Bri Light Monocytes/100 WBC (Bld) 10.8 % Normal 1.7-12.[address] [facility] Comment on above: Performed By: #### C BC #### [facility] [address] [place] [address] Dr. Bri Light NEUT # 6.5 103/ul Normal 1.4-6.5 [facility] Comment on above: Performed By: #### C BC #### [facility] [address] [place] [address] Dr. Bri Light Neutrophils/100 WBC (Bld) 64.9 % Normal 43.0-75.0 [facility] Comment on above: Performed By: #### C BC #### [facility] [address] [place] [address] Dr. Bri Light Platelet mean volume (Bld) [Entitic vol] 9.3 fL Critically low 9.5-13.5 [facility] Comment on above: Performed By: #### C BC #### [facility] [address] [place] [address] Dr. Bri Light PLT 397 103/ul Normal 150-450 [facility] Comment on above: Performed By: #### C BC #### [facility] [address] [place] [address] Dr. Bri Light RBC 4.91 106/ul Normal 4.20-5.40 [facility] Comment on above: Performed By: #### C BC #### [facility] [address] [place] [address] Dr. Bir Light WBC 10.0 103/ul Normal 4.0-11.0 [facility] Comment on above: Performed By: #### C BC #### [facility] [address] [place] [address] Dr. Bri Light [facility]on 10-27 SARS-CoV-2 (COVID-19) RNA CAMDEN+probe Ql (Unsp spec) Not detected Normal NOT DETECTED [facility] Comment on above: Result Comment: This test is not yet approved or cleared by the [place] FDA. When there are no FDA-approved or cleared tests available, and other criteria are met, FDA can make tests available under an emergency access mechanism called an Emergency Use Authorization (EUA). The EUA for this test is supported by the [place] of Health and Human Service's (HHS's) declaration that circumstances exist to justify the emergency use of in vitro diagnostics for the detection and/or diagnosis of the virus that causes COVID-19. This EUA will remain in effect (meaning this test can be used) for the duration of the COVID-19 declaration justifying emergency of IVDs, unless it is terminated or revoked by FDA (after which the test may no longer be used). When diagnostic testing is negative, the possibility of a false negative should be considered in the context of a patient's recent exposures and the presence of clinical signs and symptoms consistent with SARS-CoV-2. Performed By: #### C PIA BONE LIPA #### [facility] [address] [address] [address] Bri CARNYE URINE PROFILEon 2 Bilirubin Ql (U) Negative Normal NEGATIVE [facility] Comment on above: Performed By: #### C MP, PIA, LIPA #### [facility] [address] [address] [address] Bri Light Clarity (U) CLEAR Normal CLEAR [facility] Comment on above: Performed By: #### C MP, PIA, LIPA #### [facility] [address] [address] [address] Bri Light Color (U) YELLOW Normal YELLOW [facility] Comment on above: Performed By: #### C MP, PIA, LIPA #### [facility] [address] [place] [address] Dr. Bri WAGNER A micrscopic examination will be performed if indicated. Normal [facility] Comment on above: Performed By: #### C MP, PIA, LIPA #### [facility] [address] [address] [address] Bri Light Glucose Ql (U) Negative Normal NEGATIVE [facility] Comment on above: Performed By: #### C MP, PIA, LIPA #### [facility] [address] [address] [address] Bri Light Hemoglobin Ql (U) LARGE Abnormal NEGATIVE [facility] Comment on above: Performed By: #### C MP, PIA, LIPA #### [facility] [address] [address] [address] Bri Light Ketones Ql (U) Negative Normal NEGATIVE [facility] Comment on above: Performed By: #### C MP, PIA, LIPA #### [facility] [address] [place] [address] Dr. Bri Light LEUKOCYTES Negative Normal NEGATIVE [facility] Comment on above: Performed By: #### C MP, PIA, LIPA #### [facility] [address] [address] [address] Bri Light Nitrite Ql (U) Negative Normal NEGATIVE [facility] Comment on above: Performed By: #### C MP, PIA, LIPA #### [facility] [address] [address] [address] Bri Light pH (U) 5.5 [pH] Normal 5-9 [facility] Comment on above: Performed By: #### C MP, PIA, LIPA #### [facility] [address] [place] [address] Dr. Bri Light SPEC GRAVITY 1.025 Normal 1.005-<=1.[address] [place] [address] Comment on above: Performed By: #### C MP, PIA, LIPA #### [facility] [address] [place] [address] Dr. Bri Light UA PROTEIN TRACE Normal NEGATIVE/ TRACE [facility] Comment on above: Performed By: #### C MP, PIA, LIPA #### [facility] [address] [place] [address] Dr. Bri Light UR MICRO IND INDICATED Normal [facility] Comment on above: Performed By: #### C MP, PIA, LIPA #### [facility] [address] [place] [address] Dr. Bri Light Urobilinogen Qn (U) 0.2 {Bong'U}/dL Normal 0.2 - 1. 0 [facility] Comment on above: Performed By: #### C LIZANDRO, PIA, LIPA #### [facility] [address] [place] [address] Dr. Bri Light INFLUENZA A AND B AGon 11-13 INFLUANEGH SEE BELOW Normal [facility] Comment on above: Result Comment: Nega tive for Flu A protein angiten. Infection due to Flu A cannot be ruled out. Flu A angiten in the sample may be below the detection limit of the test. Performed By: #### C MP, PIA, LIPA #### [facility] [address] [place] [address] Dr. Bri Light INFLUBNEGH SEE BELOW Normal [facility] Comment on above: Result Comment: Nega tive for Flu B protein antigen. Infection due to Flu B cannot be ruled out. Flu B antigen in the sample may be below the detection limit of the test. Performed By: #### C LIZANDRO PIA, LIPA #### [facility] [address] [place] [address] Dr. Bri Light INFLUENZA A AG Negative Normal NEGATIVE SEE COMMENT [facility] Comment on above: Performed By: #### C MP, PIA, LIPA #### [facility] [address] [place] [address] Dr. Bri Light INFLUENZA B AG Negative Normal NEGATIVE SEE COMMENT [facility] Comment on above: Performed By: #### C LIZANDRO PIA, LIPA #### [facility] [address] [place] [address] Dr. Bri Light INTERNAL CONTROLS Within Normal Limits Normal Wi thin Normal Limits [facility] Comment on above: Performed By: #### C LIZANDRO PIA, LIPA #### [facility] [address] [place] [address] Dr. Bri Light LIPASEon 11-13-2022 Lipase [Catalytic activity/Vol] 83.0 U/L Normal 73.0-393.0 [facility] Comment on above: Performed By: #### C PIA BONE, LIPA #### [facility] [address] [place] [address] Dr. Bri Light URon 11-13-2022 , QUAL Negative Normal NEGATIVE [facility] Comment on above: Performed By: #### C LIZANDRO PIA, LIPA #### [facility] [address] [place] [address] Dr. Bri Light PROF 14(COMP METB)on 022 Albumin [Mass/Vol] 3.2 g/dL Critically low 3.4-5.0 [facility] Comment on above: Performed By: #### C LIZANDRO PIA, LIPA #### [facility] [address] [place] [address] Dr. Bri Light Albumin/Globulin [Mass ratio] 0.7 {ratio} Normal [facility] Comment on above: Performed By: #### C LIZANDRO PIA, LIPA #### [facility] [address] [address] [address] Bri Light ALP [Catalytic activity/Vol] 78 U/L Normal 46-116 [facility] Comment on above: Performed By: #### C PIA BONE LIPA #### [facility] [address] [place] [address] Dr. Bri Light ALT [Catalytic activity/Vol] 33 U/L Normal 14-59 [facility] Comment on above: Performed By: #### C PIA BONE, LIPA #### [facility] [address] [place] [address] Dr. Bri Light Anion gap [Moles/Vol] 8.5 mmol/L Normal [facility] Comment on above: Performed By: #### C PIA BONE, LIPA #### [facility] [address] [place] [address] Dr. Bri Light AST [Catalytic activity/Vol] 16 U/L Normal 15-37 [facility] Comment on above: Performed By: #### C PIA BONE, LIPA #### [facility] [address] [place] [address] Dr. Bri Light Bilirubin [Mass/Vol] 0.6 mg/dL Normal 0.2-1.0 [facility] Comment on above: Performed By: #### C LIZANDRO PIA, LIPA #### [facility] [address] [place] [address] Dr. Bri Light Calcium [Mass/Vol] 8.1 mg/dL Critically low 8.5-10.1 [facility] Comment on above: Performed By: #### C PIA BONE, LIPA #### [facility] [address] [place] [address] Dr. Bri Light Chloride [Moles/Vol] 102 mmol/L Normal 98-107 [facility] Comment on above: Performed By: #### C PIA BONE, LIPA #### [facility] [address] [place] [address] Dr. Bri Light CO2 [Moles/Vol] 26.5 mmol/L Normal 21.0-32.0 [facility] Comment on above: Performed By: #### C MP, PIA, LIPA #### [facility] [address] [address] [address] Bri Light Creatinine [Mass/Vol] 0.68 mg/dL Normal 0.55-1.02 [facility] Comment on above: Performed By: #### C MP, PIA, LIPA #### [facility] [address] [address] [address] Bri Light EGFR-AF BURKINAN >60 Normal >=60 [facility] Comment on above: Performed By: #### C MP, PIA, LIPA #### [facility] [address] [address] [address] Bri Light EGFR-NON AF BURKINAN >60 Normal >=60 [facility] Comment on above: Performed By: #### C MP, PIA, LIPA #### [facility] [address] [address] [address] Bri Light Globulin (S) [Mass/Vol] 4.7 g/dL Normal [facility] Comment on above: Performed By: #### C MP, PIA, LIPA #### [facility] [address] [address] [address] Bri Light Glucose [Mass/Vol] 113 mg/dL Critically high 74-[address] [facility] Comment on above: Performed By: #### C MP, PIA, LIPA #### [facility] [address] [address] [address] Bri Light Potassium [Moles/Vol] 3.0 mmol/L Critically low 3.5-5.1 [facility] Comment on above: Performed By: #### C MP, PIA, LIPA #### [facility] [address] [address] [address] Bri Light Protein [Mass/Vol] 7.9 g/dL Normal 6.4-8.2 [facility] Comment on above: Performed By: #### C MP, PIA, LIPA #### [facility] [address] [address] [address] Bri Light Sodium [Moles/Vol] 136 mmol/L Normal 136-145 [facility] Comment on above: Performed By: #### C PIA BONE, LIPA #### [facility] [address] [place] [address] Dr. Bri Light Urea nitrogen [Mass/Vol] 11.0 mg/dL Normal 7.0-18.0 [facility] Comment on above: Performed By: #### C PIA BONE, LIPA #### [facility] [address] [place] [address] Dr. Bri Light Urea nitrogen/Creatinine [Mass ratio] 16.2 mg/mg Normal [facility] Comment on above: Performed By: #### C PIA BONE, LIPA #### [facility] [address] [place] [address] Dr. Bri Light URINE MICROSCOPIC ONLYon BACTERIA TRACE Abnormal NONE SEEN [facility] Comment on above: Performed By: #### C PIA BONE, LIPA #### [facility] [address] [place] [address] Dr. Bri Light Bacteria identified Cx Nom (U) NOT INDICATED Normal [facility] Comment on above: Performed By: #### C PIA BONE, LIPA #### [facility] [address] [place] [address] Dr. Bri Light CAST NONE SEEN Normal NONE SEEN [facility] Comment on above: Performed By: #### C PIA BONE, LIPA #### [facility] [address] [place] [address] Dr. Bri Light Crystals LM Nom (Urine sed) NONE SEEN Normal NONE SEEN [facility] Comment on above: Performed By: #### C LIZANDRO PIA, LIPA #### [facility] [address] [place] [address] Dr. Bri Light Epithelial cells LM Ql (Urine sed) RARE Normal NONE SEEN /RARE [facility] Comment on above: Performed By: #### C LIZANDRO PIA, LIPA #### [facility] [address] [place] [address] Dr. Bri Light MUCOUS NONE SEEN Normal NONE SEEN [facility] Comment on above: Performed By: #### C MP, PIA, LIPA #### [facility] [address] [place] [address] Dr. Bri Light RBC 0-2 Normal 0-2 [facility] Comment on above: Performed By: #### C MP, PIA, LIPA #### [facility] [address] [place] [address] Dr. Bri Light WBC 0-2 Abnormal NONE SEEN [facility] Comment on above: Performed By: #### C MP, PIA, LIPA #### [facility] [address] [place] [address] Dr. Bri Light AMYLASEon 09-02-2022 Amylase [Catalytic activity/Vol] 36 U/L Normal 25-115 [facility] Comment on above: Performed By: #### C MP, PIA, LIPA #### [facility] [address] [place] [address] Dr. Bri Light CBC AUTO DIFFon 09-02-2022 BASO # 0.0 103/ul Normal 0.0-0.1 [facility] Comment on above: Performed By: #### C MP, PIA, LIPA #### [facility] [address] [place] [address] Dr. Bir Light Basophils/100 WBC (Bld) 0.3 % Normal 0.2-2.[address] [facility] Comment on above: Performed By: #### C MP, PIA, LIPA #### [facility] [address] [place] [address] Dr. Bri Light EO # 0.3 103/ul Normal 0.0-0.7 [facility] Comment on above: Performed By: #### C MP, PIA, LIPA #### [facility] [address] [place] [address] Dr. Bri Light Eosinophils/100 WBC (Bld) 2.1 % Normal 0.9-7.0 [facility] Comment on above: Performed By: #### C MP, PIA, LIPA #### [facility] [address] [place] [address] Dr. Bri Light Erythrocyte distribution width (RBC) [Ratio] 14.6 % Normal 11.0-15.0 [facility] Comment on above: Performed By: #### C PIA BONE LIPA #### [facility] [address] [place] [address] Dr. Bri Light Hematocrit (Bld) [Volume fraction] 43.5 % Normal 36.0-48.0 [facility] Comment on above: Performed By: #### C PIA BONE LIPA #### [facility] [address] [place] [address] Dr. Bri Light Hemoglobin (Bld) [Mass/Vol] 13.7 g/dL Normal 12.0-16.0 [facility] Comment on above: Performed By: #### C PIA BONE LIPA #### [facility] [address] [place] [address] Dr. Bri Light IG # 0.08 10e3/ul Critically high 0.00-0.03 [facility] Comment on above: Performed By: #### C PIA BONE LIPA #### [facility] [address] [place] [address] Dr. Bri Light IG % 0.5 % Normal 0.0-0.5 [facility] Comment on above: Performed By: #### C PIA BONE LIPA #### [facility] [address] [place] [address] Dr. Bri Light LYMPH # 2.9 103/ul Normal 1.2-3.8 [facility] Comment on above: Performed By: #### C PIA BONE LIPA #### [facility] [address] [place] [address] Dr. Bri Light Lymphocytes/100 WBC (Bld) 20.1 % Critically low 20.5-60.0 [facility] Comment on above: Performed By: #### C PIA BONE LIPA #### [facility] [address] [place] [address] Dr. Bri Lgiht MANUAL DIFF REQ NO Normal [facility] Comment on above: Performed By: #### C PIA BONE LIPA #### [facility] [address] [place] [address] Dr. Bri Light MCH (RBC) [Entitic mass] 26.3 pg Critically low 26.7-34.0 [facility] Comment on above: Performed By: #### C MP, PIA, LIPA #### [facility] [address] [place] [address] Dr. Bri Light MCHC (RBC) [Mass/Vol] 31.5 g/dL Normal 29.9-35.2 [facility] Comment on above: Performed By: #### C MP, PIA, LIPA #### [facility] [address] [place] [address] Dr. Bri Light MCV (RBC) [Entitic vol] 83.5 fL Normal 81.0-99.[address] [facility] Comment on above: Performed By: #### C MP, PIA, LIPA #### [facility] [address] [place] [address] Dr. Bri Light MONO # 1.1 103/ul Critically high 0.3-0.8 [facility] Comment on above: Performed By: #### C MP, PIA, LIPA #### [facility] [address] [place] [address] Dr. Bri Light Monocytes/100 WBC (Bld) 7.5 % Normal 1.7-12.[address] [facility] Comment on above: Performed By: #### C MP, PIA, LIPA #### [facility] [address] [place] [address] Dr. Bri Light NEUT # 10.2 103/ul Critically high 1.4-6.5 [facility] Comment on above: Performed By: #### C MP, PIA, LIPA #### [facility] [address] [place] [address] Dr. Bri Light Neutrophils/100 WBC (Bld) 69.5 % Normal 43.0-75.0 [facility] Comment on above: Performed By: #### C MP, PIA, LIPA #### [facility] [address] [place] [address] Dr. Bri Light Platelet mean volume (Bld) [Entitic vol] 9.6 fL Normal 9.5-13.5 [facility] Comment on above: Performed By: #### C PIA BONE LIPA #### [facility] [address] [place] [address] Dr. Bri Light PLT 426 103/ul Normal 150-450 [facility] Comment on above: Performed By: #### C PIA BONE LIPA #### [facility] [address] [address] [address] Bri Light RBC 5.21 106/ul Normal 4.20-5.40 [facility] Comment on above: Performed By: #### C PIA BONE LIPA #### [facility] [address] [place] [address] Dr. Bri Light WBC 14.6 103/ul Critically high 4.0-11.0 [facility] Comment on above: Performed By: #### C PIA BONE LIPA #### [facility] [address] [place] [address] Dr. Bri Light ER URINE PROFILEon 2 Bilirubin Ql (U) Negative Normal NEGATIVE [facility] Comment on above: Performed By: #### U MICRO, ERUR #### [facility] [address] [place] [address] Dr. Bri Light Clarity (U) CLEAR Normal CLEAR [facility] Comment on above: Performed By: #### U MICRO, ERUR #### [facility] [address] [place] [address] Dr. Bri Light Color (U) LT. YELLOW Normal YELLOW [facility] Comment on above: Performed By: #### U MICRO, ERUR #### [facility] [address] [place] [address] Dr. Bri WAGNER A micrscopic examination will be performed if indicated. Normal [facility] Comment on above: Performed By: #### U MICRO, ERUR #### [facility] [address] [place] [address] Dr. Bri Light Glucose Ql (U) Negative Normal NEGATIVE [facility] Comment on above: Performed By: #### U MICRO, ERUR #### [facility] [address] [address] [address] Bri Light Hemoglobin Ql (U) LARGE Abnormal NEGATIVE [facility] Comment on above: Performed By: #### U MICRO, ERUR #### [facility] [address] [place] [address] Dr. Bri Light Ketones Ql (U) Negative Normal NEGATIVE [facility] Comment on above: Performed By: #### U MICRO, ERUR #### [facility] [address] [address] [address] Bri Light LEUKOCYTES Negative Normal NEGATIVE [facility] Comment on above: Performed By: #### U MICRO, ERUR #### [facility] [address] [place] [address] Dr. Bri Light Nitrite Ql (U) Negative Normal NEGATIVE [facility] Comment on above: Performed By: #### U MICRO, ERUR #### [facility] [address] [place] [address] Dr. Bri Light pH (U) 6.0 [pH] Normal 5-9 [facility] Comment on above: Performed By: #### U MICRO, ERUR #### [facility] [address] [place] [address] Dr. Bri Light SPEC GRAVITY 1.025 Normal 1.005-<=1.02 5 [facility] Comment on above: Performed By: #### U MICRO, ERUR #### [facility] [address] [address] [address] Bri Light UA PROTEIN Negative Normal NEGATIVE/ TRACE [facility] Comment on above: Performed By: #### U MICRO, ERUR #### [facility] [address] [place] [address] Dr. Bri Light UR MICRO IND INDICATED Normal [facility] Comment on above: Performed By: #### U MICRO, ERUR #### [facility] [address] [place] [address] Dr. Bri Light Urobilinogen Qn (U) 0.2 {Bong'U}/dL Normal 0.2 - 1. 0 [facility] Comment on above: Performed By: #### U MICRO, ERUR #### [facility] [address] [place] [address] Dr. Bri Light LACTATE/LACTIC ACIDon 2021 Lactate [Moles/Vol] 1.0 mmol/L Normal 0.4-1.9 [facility] Comment on above: Performed By: #### L ACT #### [facility] [address] [place] [address] Dr. Bri Light LIPASEon 09-02-2022 Lipase [Catalytic activity/Vol] 101.0 U/L Normal 73.0-393.0 [facility] Comment on above: Performed By: #### C MP PIA, LIPA #### [facility] [address] [place] [address] Dr. Bri Light POINT OF CARE GLUCOSEon Glucose [Mass/Vol] 101 mg/dL Normal 74-106 [facility] Comment on above: Performed By: #### P OCGLUC #### [facility] [address] [place] [address] Dr. Bri Light Glucose [Mass/Vol] 127 mg/dL Critically high 74-[address] [facility] Comment on above: Performed By: #### C MP PIA, LIPA #### [facility] [address] [place] [address] Dr. Bri Light PROF 14(COMP METB)on 022 Albumin [Mass/Vol] 3.7 g/dL Normal 3.4-5.0 [facility] Comment on above: Performed By: #### C MP PIA, LIPA #### [facility] [address] [place] [address] Dr. Bir Light Albumin/Globulin [Mass ratio] 0.7 {ratio} Normal [facility] Comment on above: Performed By: #### C MP PIA, LIPA #### [facility] [address] [place] [address] Dr. Bri Light ALP [Catalytic activity/Vol] 97 U/L Normal 46-116 [facility] Comment on above: Performed By: #### C LIZANDRO PIA, LIPA #### [facility] [address] [place] [address] Dr. Bri Light ALT [Catalytic activity/Vol] 38 U/L Normal 14-59 [facility] Comment on above: Performed By: #### C MP PIA, LIPA #### [facility] [address] [place] [address] Dr. Bri Light Anion gap [Moles/Vol] 10.4 mmol/L Normal [facility] Comment on above: Performed By: #### C LIZANDRO PIA, LIPA #### [facility] [address] [place] [address] Dr. Bri Light AST [Catalytic activity/Vol] 17 U/L Normal 15-37 [facility] Comment on above: Performed By: #### C LIZANDRO PIA, LIPA #### [facility] [address] [place] [address] Dr. Bri Light Bilirubin [Mass/Vol] 0.3 mg/dL Normal 0.2-1.0 [facility] Comment on above: Performed By: #### C LIZANDRO PIA, LIPA #### [facility] [address] [place] [address] Dr. Bri Light Calcium [Mass/Vol] 8.9 mg/dL Normal 8.5-10.1 [facility] Comment on above: Performed By: #### C MP PIA, LIPA #### [facility] [address] [place] [address] Dr. Bri Light Chloride [Moles/Vol] 100 mmol/L Normal 98-107 [facility] Comment on above: Performed By: #### C MP PIA, LIPA #### [facility] [address] [place] [address] Dr. Bri Light CO2 [Moles/Vol] 28.9 mmol/L Normal 21.0-32.0 [facility] Comment on above: Performed By: #### C LIZANDRO PIA, LIPA #### [facility] [address] [address] [address] Bri Light Creatinine [Mass/Vol] 0.79 mg/dL Normal 0.55-1.02 [facility] Comment on above: Performed By: #### C PIA BONE LIPA #### [facility] [address] [address] [address] Bri Light EGFR-AF BURKINAN >60 Normal >=60 [facility] Comment on above: Performed By: #### C PIA BONE LIPA #### [facility] [address] [address] [address] Bri Light EGFR-NON AF BURKINAN >60 Normal >=60 [facility] Comment on above: Performed By: #### C PIA BONE LIPA #### [facility] [address] [place] [address] Dr. Bri Light Globulin (S) [Mass/Vol] 5.0 g/dL Normal [facility] Comment on above: Performed By: #### C PIA BONE LIPA #### [facility] [address] [address] [address] Bri Light Glucose [Mass/Vol] 115 mg/dL Critically high 74-[address] [facility] Comment on above: Performed By: #### C PIA BONE LIPA #### [facility] [address] [address] [address] Bri Light Potassium [Moles/Vol] 3.3 mmol/L Critically low 3.5-5.1 [facility] Comment on above: Performed By: #### C PIA BONE, LIPA #### [facility] [address] [address] [address] Bri Light Protein [Mass/Vol] 8.7 g/dL Critically high 6.4-8.[address] [facility] Comment on above: Performed By: #### C PIA BONE, LIPA #### [facility] [address] [address] [address] Bri Light Sodium [Moles/Vol] 136 mmol/L Normal 136-145 [facility] Comment on above: Performed By: #### C LIZANDRO PIA, LIPA #### [facility] [address] [address] [address] Bri Light Urea nitrogen [Mass/Vol] 13.0 mg/dL Normal 7.0-18.0 [facility] Comment on above: Performed By: #### C MP, PIA, LIPA #### [facility] [address] [address] [address] Bri Light Urea nitrogen/Creatinine [Mass ratio] 16.5 mg/mg Normal [facility] Comment on above: Performed By: #### C PIA BONE, LIPA #### [facility] [address] [address] [address] Bri Light URINE MICROSCOPIC ONLYon BACTERIA TRACE Abnormal NONE SEEN [facility] Comment on above: Performed By: #### U MICRO, ERUR #### [facility] [address] [place] [address] Dr. Bri Light Bacteria identified Cx Nom (U) NOT INDICATED Normal [facility] Comment on above: Performed By: #### U MICRO, ERUR #### [facility] [address] [address] [address] Bri Light CAST NONE SEEN Normal NONE SEEN [facility] Comment on above: Performed By: #### U MICRO, ERUR #### [facility] [address] [address] [address] Bri Light Crystals LM Nom (Urine sed) NONE SEEN Normal NONE SEEN [facility] Comment on above: Performed By: #### U MICRO, ERUR #### [facility] [address] [place] [address] Dr. Bri Light Epithelial cells LM Ql (Urine sed) RARE Normal NONE SEEN /RARE [facility] Comment on above: Performed By: #### U MICRO, ERUR #### [facility] [address] [place] [address] Dr. Bri Light MUCOUS NONE SEEN Normal NONE SEEN [facility] Comment on above: Performed By: #### U MICRO, ERUR #### [facility] [address] [place] [address] Dr. Bri Light RBC 2-5 Abnormal 0-2 [facility] Comment on above: Performed By: #### U MICRO, ERUR #### [facility] [address] [place] [address] Dr. Bri Light WBC 0-2 Abnormal NONE SEEN [facility] Comment on above: Performed By: #### U MICRO, ERUR #### [facility] [address] [place] [address] Dr. Bri Light XR CHEST 2 Von 09-02-2022 XR CHEST 2 V EXAMINATION: XR CHES T 2 V HISTORY: Nausea and hypoglycemia COMPARISON: None available. TECHNIQUE: PA and lateral chest x-rays FINDINGS: The lung parenchyma is free of consolidation or infiltrate. No pneumothorax or pleural effusion. The cardiac, mediastinal and hilar contours are normal. The visualized osseous structures exhibit no gross abnormality. IMPRESSION: Normal chest x-rays Electronically authenticated by: DEANDRA MONTANO Date: 2022-09-01 23:16 Normal [facility] CBC AUTO DIFFon 08-22-2022 BASO # 0.1 103/ul Normal 0.0-0.1 [facility] Comment on above: Performed By: #### C MP PIA, LIPA #### [facility] [address] [place] [address] Dr. Bri Light Basophils/100 WBC (Bld) 0.4 % Normal 0.2-2.[address] [facility] Comment on above: Performed By: #### C MP PIA, LIPA #### [facility] [address] [place] [address] Dr. Bri Light EO # 0.2 103/ul Normal 0.0-0.7 [facility] Comment on above: Performed By: #### C MP PIA, LIPA #### [facility] [address] [place] [address] Dr. Bri Light Eosinophils/100 WBC (Bld) 1.5 % Normal 0.9-7.0 [facility] Comment on above: Performed By: #### C MP PIA, LIPA #### [facility] [address] [place] [address] Dr. Bri Light Erythrocyte distribution width (RBC) [Ratio] 14.6 % Normal 11.0-15.0 [facility] Comment on above: Performed By: #### C PIA BONE LIPA #### [facility] [address] [place] [address] Dr. Bri Light Hematocrit (Bld) [Volume fraction] 40.3 % Normal 36.0-48.0 [facility] Comment on above: Performed By: #### C PIA BONE LIPA #### [facility] [address] [place] [address] Dr. Bri Light Hemoglobin (Bld) [Mass/Vol] 12.7 g/dL Normal 12.0-16.0 [facility] Comment on above: Performed By: #### C PIA BONE LIPA #### [facility] [address] [place] [address] Dr. Bri Light IG # 0.04 10e3/ul Critically high 0.00-0.03 [facility] Comment on above: Performed By: #### C PIA BONE LIPA #### [facility] [address] [place] [address] Dr. Bri Light IG % 0.3 % Normal 0.0-0.5 [facility] Comment on above: Performed By: #### C PIA BONE LIPA #### [facility] [address] [place] [address] Dr. Bri Light LYMPH # 3.9 103/ul Critically high 1.2-3.[address] [facility] Comment on above: Performed By: #### C PIA BONE LIPA #### [facility] [address] [place] [address] Dr. Bri Light Lymphocytes/100 WBC (Bld) 29.4 % Normal 20.5-60.0 [facility] Comment on above: Performed By: #### C PIA BONE, LIPA #### [facility] [address] [place] [address] Dr. Bri Light MANUAL DIFF REQ NO Normal [facility] Comment on above: Performed By: #### C PIA BONE LIPA #### [facility] [address] [place] [address] Dr. Bri Light MCH (RBC) [Entitic mass] 26.4 pg Critically low 26.7-34.0 [facility] Comment on above: Performed By: #### C MP, PIA, LIPA #### [facility] [address] [place] [address] Dr. Bri Light MCHC (RBC) [Mass/Vol] 31.5 g/dL Normal 29.9-35.2 [facility] Comment on above: Performed By: #### C MP PIA, LIPA #### [facility] [address] [place] [address] Dr. Bri Light MCV (RBC) [Entitic vol] 83.8 fL Normal 81.0-99.[address] [facility] Comment on above: Performed By: #### C LIZANDRO PIA, LIPA #### [facility] [address] [place] [address] Dr. Bri Light MONO # 1.1 103/ul Critically high 0.3-0.8 [facility] Comment on above: Performed By: #### C LIZANDRO PIA, LIPA #### [facility] [address] [place] [address] Dr. Bri Light Monocytes/100 WBC (Bld) 8.5 % Normal 1.7-12.[address] [facility] Comment on above: Performed By: #### C LIZANDRO PIA, LIPA #### [facility] [address] [place] [address] Dr. Bri Light NEUT # 8.0 103/ul Critically high 1.4-6.5 [facility] Comment on above: Performed By: #### C MP PIA, LIPA #### [facility] [address] [place] [address] Dr. Bri Light Neutrophils/100 WBC (Bld) 59.9 % Normal 43.0-75.0 [facility] Comment on above: Performed By: #### C MP PIA, LIPA #### [facility] [address] [place] [address] Dr. Bri Light Platelet mean volume (Bld) [Entitic vol] 9.5 fL Normal 9.5-13.5 [facility] Comment on above: Performed By: #### C PIA BONE, LIPA #### [facility] [address] [address] [address] Bri Light PLT 442 103/ul Normal 150-450 [facility] Comment on above: Performed By: #### C LIZANDRO PIA, LIPA #### [facility] [address] [address] [address] Bri Light RBC 4.81 106/ul Normal 4.20-5.40 [facility] Comment on above: Performed By: #### C PIA BONE, LIPA #### [facility] [address] [address] [address] Bri Light WBC 13.3 103/ul Critically high 4.0-11.0 [facility] Comment on above: Performed By: #### C PIA BONE, LIPA #### [facility] [address] [address] [address] Bri Light GLYCOHEMOGLOBIN A1Con 2021 ADA RECOMMENDATION SEE BELOW Normal [facility] Comment on above: Result Comment: ADA RECOMMENDED LIMIT 4.0 - 6.0 ADA THERAPEUTIC TARGET < 7.0 ACTION SUGGESTED > 7.0 Performed By: #### C PIA BONE, LIPA #### [facility] [address] [address] [address] Bri Light Glucose [Mass/Vol] 171 mg/dL Normal [facility] Comment on above: Performed By: #### C PIA BONE, LIPA #### [facility] [address] [address] [address] Bri Light HbA1c (Bld) [Mass fraction] 7.6 % Critically high 4.5-6.2 [facility] Comment on above: Performed By: #### C PIA BONE, LIPA #### [facility] [address] [address] [address] Bri Light LIPID PROFILEon 08-22-2022 CHOL-HDL RATIO NORM SEE BELOW Normal [facility] Comment on above: Result Comment: 3.3 - 4.4 LOW RISK 4.4 - 7.1 AVERAGE RISK 7.1 - 11.0 MODERATE RISK >11.0 HIGH RISK Performed By: #### C MP, PIA, LIPA #### [facility] [address] [address] [address] Bri Light Cholesterol [Mass/Vol] 165 mg/dL Normal <=200 [facility] Comment on above: Performed By: #### C MP, PIA, LIPA #### [facility] [address] [address] [address] Bri Light Cholesterol in HDL [Mass/Vol] 40 mg/dL Normal 40-60 [facility] Comment on above: Performed By: #### C MP, PIA, LIPA #### [facility] [address] [address] [address] Bri Light Cholesterol in LDL [Mass/Vol] 91.4 mg/dL Normal [facility] Comment on above: Performed By: #### C MP, PIA, LIPA #### [facility] [address] [address] [address] Bri Light Cholesterol.total/Angie sterol in HDL [Mass ratio] 4.1 {ratio} Normal [facility] Comment on above: Performed By: #### C MP, PIA, LIPA #### [facility] [address] [address] [address] Bri Light HDL NORMAL > or = 60 mg/dl - LO W CARDIOVASCULAR RISK <40 mg/dl - HIGH CARDIOVASCULAR RISK Normal [facility] Comment on above: Performed By: #### C MP, PIA, LIPA #### [facility] [address] [address] [address] Bri Light LDL CALC NORMAL SEE BELOW Normal [facility] Comment on above: Result Comment: <100 mg/dl OPTIMAL 100 - 129 mg/dl NEAR OR ABOVE OPTIMAL 130 - 159 mg/dl BORDERLINE HIGH 160 - 189 mg/dl HIGH >190 mg/dl VERY HIGH Performed By: #### C MP, PIA, LIPA #### [facility] [address] [place] [address] Dr. Bri Light Triglyceride [Mass/Vol] 168 mg/dL Critically high <=150 [facility] Comment on above: Performed By: #### C MP, PIA, LIPA #### [facility] [address] [place] [address] Dr. Bri Light VLDL CALC 33.6 mg/dL Normal [facility] Comment on above: Performed By: #### C MP, PIA, LIPA #### [facility] [address] [address] [address] Bri Light LIVER PROFILEon 08-22-2022 Albumin [Mass/Vol] 3.5 g/dL Normal 3.4-5.0 [facility] Comment on above: Performed By: #### C MP, PIA, LIPA #### [facility] [address] [place] [address] Dr. Bri Light Albumin/Globulin [Mass ratio] 0.8 {ratio} Normal [facility] Comment on above: Performed By: #### C MP, PIA, LIPA #### [facility] [address] [place] [address] Dr. Bri Light ALP [Catalytic activity/Vol] 85 U/L Normal 46-116 [facility] Comment on above: Performed By: #### C MP, PIA, LIPA #### [facility] [address] [place] [address] Dr. Bri Light ALT [Catalytic activity/Vol] 40 U/L Normal 14-59 [facility] Comment on above: Performed By: #### C MP, PIA, LIPA #### [facility] [address] [place] [address] Dr. Bri Light AST [Catalytic activity/Vol] 15 U/L Normal 15-37 [facility] Comment on above: Performed By: #### C MP, PIA, LIPA #### [facility] [address] [place] [address] Dr. Bri Light BILI, CONJUGATED 0.1 mg/dL Normal 0.0-0.2 [facility] Comment on above: Performed By: #### C MP, PIA, LIPA #### [facility] [address] [place] [address] Dr. Bri Light Bilirubin [Mass/Vol] 0.3 mg/dL Normal 0.2-1.0 [facility] Comment on above: Performed By: #### C MP, PIA, LIPA #### [facility] [address] [place] [address] Dr. Bri Light Globulin (S) [Mass/Vol] 4.6 g/dL Normal [facility] Comment on above: Performed By: #### C MP, PIA, LIPA #### [facility] [address] [place] [address] Dr. Bri Light Protein [Mass/Vol] 8.1 g/dL Normal 6.4-8.2 [facility] Comment on above: Performed By: #### C MP, PIA, LIPA #### [facility] [address] [place] [address] Dr. Bri Light PROF CHEM 8 (BAS METB)on Anion gap [Moles/Vol] 8.3 mmol/L Normal [facility] Comment on above: Performed By: #### C MP, PIA, LIPA #### [facility] [address] [place] [address] Dr. Bri Light Calcium [Mass/Vol] 9.2 mg/dL Normal 8.5-10.1 [facility] Comment on above: Performed By: #### C MP, PIA, LIPA #### [facility] [address] [place] [address] Dr. Bri Light Chloride [Moles/Vol] 104 mmol/L Normal 98-107 [facility] Comment on above: Performed By: #### C MP, PIA, LIPA #### [facility] [address] [place] [address] Dr. Bri Light CO2 [Moles/Vol] 29.5 mmol/L Normal 21.0-32.0 [facility] Comment on above: Performed By: #### C MP, PIA, LIPA #### [facility] [address] [address] [address] Bri Light Creatinine [Mass/Vol] 0.71 mg/dL Normal 0.55-1.02 [facility] Comment on above: Performed By: #### C PIA BONE LIPA #### [facility] [address] [address] [address] Bri Light EGFR-AF BURKINAN >60 Normal >=60 [facility] Comment on above: Performed By: #### C PIA BONE LIPA #### [facility] [address] [address] [address] Bri Light EGFR-NON AF BURKINAN >60 Normal >=60 [facility] Comment on above: Performed By: #### C PIA BONE LIPA #### [facility] [address] [address] [address] Bri Light Glucose [Mass/Vol] 77 mg/dL Normal 74-106 [facility] Comment on above: Performed By: #### C PIA BONE LIPA #### [facility] [address] [address] [address] Bri Light Potassium [Moles/Vol] 3.8 mmol/L Normal 3.5-5.1 [facility] Comment on above: Performed By: #### C PIA BONE LIPA #### [facility] [address] [address] [address] Bri Light Sodium [Moles/Vol] 138 mmol/L Normal 136-145 [facility] Comment on above: Performed By: #### C PIA BONE, LIPA #### [facility] [address] [address] [address] Bri Light Urea nitrogen [Mass/Vol] 12.0 mg/dL Normal 7.0-18.0 [facility] Comment on above: Performed By: #### C PIA BONE, LIPA #### [facility] [address] [address] [address] Bri Light Urea nitrogen/Creatinine [Mass ratio] 16.9 mg/mg Normal [facility] Comment on above: Performed By: #### C PIA BONE LIPA #### [facility] [address] [address] [address] Bri Light TSHon 08-22-2022 TSH 1.727 uIU/mL Normal 0.358-3.[address] [facility] Comment on above: Performed By: #### C PIA BONE LIPA #### [facility] [address] [address] [address] Bri Light VITAMIN D 25 OHon 08-22-2022 VIT D 25-OH 33.4 ng/mL Normal [facility] Comment on above: Performed By: #### C PIA BONE LIPEnriqueta #### [facility] [address] [address] [address] Bri Light VIT D RANGES SEE BELOW Normal [facility] Comment on above: Result Comment: <20 ng/mL Vit D deficient 20 - <30 ng/mL Vit D insufficient 30 - 100 ng/mL Vit D sufficient >100 ng/mL Potential Toxicity Performed By: #### C PIA BONE LIPA #### [facility] [address] [address] [address] Bri Light XR FOOT RT MIN 3 VIEWSon XR FOOT RT MIN 3 VIEWS EXAM: XR FOOT RT MIN 3 VIEWS HISTORY: The patient is a 42-year-old female with first metatarsophalangeal joint pain. COMPARISON: 08/27/2012. FINDINGS: The current study demonstrates at least 3 small calcific densities near the tuberosity at the base of the fifth metatarsal. These were not present on the prior study. These do not appear to be acute, and these may be the result of a prior avulsion injury at the peroneal brevis tendon insertion site. No other acute or ununited fractures are seen within or around the right foot. Specifically, there is no evidence of acute trauma of the first metatarsophalangeal joint. There is a mild hallux valgus deformity, and this appears unchanged since the prior radiographs from 08/27/2012. Allowing for this, the widths and alignment of all the joints are maintained. No radiopaque foreign bodies are seen. IMPRESSION: As above. Electronically authenticated by: VANNA MAYEN Date: 2022-07-22 00:46 Normal [facility] MRI Knee w/o Lefton 05-19-20 MRI Knee w/o Left HISTORY: Left knee sprain. Twisting injury 8 months ago. Continued pain. COMPARISON: Radiographs of the knee 04/19/2022 TECHNIQUE: Multiplanar multisequence MRI of the left knee was performed without contrast. FINDINGS: Quadriceps and patellar tendons are intact. Moderate joint effusion. The anterior ligament and posterior cruciate ligament are intact. The medial collateral ligament, lateral collateral ligament, and popliteus myotendinous unit are intact. Complex tear of the body to posterior horn of the medial meniscus including near complete radial tear of the posterior horn/root. The lateral meniscus is intact. Partial thickness tear to the size of the weightbearing medial femoral condyle without well-defined cartilage defect. 10 mm area of cartilage abnormality of the superior median patellar ridge comprised of partial and full-thickness cartilage loss with small focus of subcortical bone more edema. Popliteal fossa structures are intact. No Griffith's cyst. IMPRESSION: Complex tear of the body through posterior horn of the medial meniscus. Mild osteoarthritis. Report reported and signed by Eusebio Myers on 05/20/2022 0900 Normal [facility] GLYCOHEMOGLOBIN A1Con 2021 ADA RECOMMENDATION ADA THERAPEUTIC TARG ET 6.0 - 7.0 ACTION SUGGESTED > 7.0 Normal [facility] Comment on above: Performed By: #### C PIA BONE LIPA #### [facility] [address] [address] [address] Bri Light Glucose [Mass/Vol] 246 mg/dL Normal [facility] Comment on above: Performed By: #### C PIA BONE LIPA #### [facility] [address] [address] [address] Bri Light HbA1c (Bld) [Mass fraction] 10.2 % Critically high <=6.0 [facility] Comment on above: Performed By: #### C PIA BONE LIPA #### [facility] [address] [address] [address] Bri Light Vital Signs Date Time Vital Sign Value Performing Clinician Facility 01-24-2025 11:33-0500 Body height 165.1 cm Gerson Pierson MD Work Phone: [facility] 01-24-2025 11:33-0500 Body mass index (BMI) [Ratio] 39.61 kg/m2 Gerson Pierson MD Work Phone: [facility] 01-24-2025 11:33-0500 Body temperature 97.81 [degF] Gerson Pierson MD Work Phone: [facility] 01-24-2025 11:33-0500 Body weight 107.96 kg Gerson Pierson MD Work Phone: [facility] 01-24-2025 11:33-0500 Diastolic blood pressure 86 mm[Hg] Gerson Pierson MD Work Phone: [facility] 01-24-2025 11:33-0500 Heart rate 87 /min Gerson Pierson MD Work Phone: [facility] 01-24-2025 11:33-0500 Respiratory rate 22 /min Gerson Pierson MD Work Phone: [facility] 01-24-2025 11:33-0500 SaO2% (BldA) [Mass fraction] 98 % Gerson Pierson MD Work Phone: [facility] 01-24-2025 11:33-0500 Systolic blood pressure 163 mm[Hg] Gerson Pierson MD Work Phone: [facility] 01-15-2025 13:51-0500 Body height 165.1 cm [facility] 01-15-2025 13:51-0500 Body mass index (BMI) [Ratio] 38.9 kg/m2 [facility] 01-15-2025 13:51-0500 Body weight 106.14 kg [facility] 07-07-2024 13:26-0400 Body height 165.1 cm MD Gerson Pierson Work Phone: [facility] 07-07-2024 13:26-0400 Body mass index (BMI) [Ratio] 39.9 kg/m2 MD Gerson Pierson Work Phone: [facility] 07-07-2024 13:26-0400 Body temperature 98.5 [degF] MD Gerson Pierson Work Phone: [facility] 07-07-2024 13:26-0400 Body weight 108.91 kg MD Gerson Pierson Work Phone: [facility] 07-07-2024 13:26-0400 Diastolic blood pressure 93 mm[Hg] MD Gerson Pierson Work Phone: [facility] 07-07-2024 13:26-0400 Heart rate 95 /min MD Gerson Pierson Work Phone: [facility] 07-07-2024 13:26-0400 SaO2% (BldA) [Mass fraction] 98 % MD Gerson Pierson Work Phone: [facility] 07-07-2024 13:26-0400 Systolic blood pressure 135 mm[Hg] MD Gerson Pierson Work Phone: [facility] 06-11-2024 15:25-0400 Body height 165.1 cm MD Gerson Pierson Work Phone: [facility] 06-11-2024 15:25-0400 Body mass index (BMI) [Ratio] 39.6 kg/m2 MD Gerson Pierson Work Phone: [facility] 06-11-2024 15:25-0400 Body weight 107.95 kg MD Gerson Pierson Work Phone: [facility] 11-15-2023 13:40-0500 Body height 165.1 cm Roberto Rodriguez Other [employer] Other 11-15-2023 13:40-0500 Body mass index (BMI) [Ratio] 41.6 kg/m2 Roberto Rodriguez Other [employer] [facility] Other 11-15-2023 13:40-0500 Body weight 113.4 kg Roberto Scovanner Other [employer] [facility] Other 09-18-2023 09:00-0400 Body height 634.49 cm Roberto Scovanner Other [employer] [facility] Other 09-18-2023 09:00-0400 Body mass index (BMI) [Ratio] 2.82 kg/m2 Roberto Scovanner Other [employer] [facility] Other 09-18-2023 09:00-0400 Body weight 113.4 kg Roberto Scovanner Other [employer] [facility] Other 09-18-2023 09:00-0400 Diastolic blood pressure 81 mm[Hg] Roberto Scovanner Other [employer] [facility] Other 09-18-2023 09:00-0400 Systolic blood pressure 143 mm[Hg] Roberto Scovanner Other [employer] [facility] Other 08-14-2023 15:20-0400 Diastolic blood pressure 84 mm[Hg] MD Gerson Pierson Work Phone: [facility] 08-14-2023 15:20-0400 Heart rate 74 /min MD Gerson Pierson Work Phone: [facility] 08-14-2023 15:20-0400 Respiratory rate 16 /min MD Gerson Pierson Work Phone: [facility] 08-14-2023 15:20-0400 SaO2% (BldA) [Mass fraction] 99 % MD Gerson Pierson Work Phone: [facility] 08-14-2023 15:20-0400 Systolic blood pressure 118 mm[Hg] MD Gerson Pierson Work Phone: [facility] 08-14-2023 13:12-0400 Body height 165.1 cm MD Gerson Pierson Work Phone: [facility] 08-14-2023 13:12-0400 Body weight 118.84 kg MD Gerson Pierson Work Phone: [facility] 07-25-2023 14:30-0400 Body height 634.49 cm Roberto Scovanner Other [employer] Other 07-25-2023 14:30-0400 Body mass index (BMI) [Ratio] 2.88 kg/m2 Roberto Scovanner Other [employer] [facility] Other 07-25-2023 14:30-0400 Body weight 116.12 kg Roberto Scjackyner Other [employer] Other 07-25-2023 14:30-0400 Diastolic blood pressure 105 mm[Hg] Roberto Scovanner Other [employer] Other 07-25-2023 14:30-0400 Respiratory rate 18 /min Roberto Scovanner Other [employer] Other 07-25-2023 14:30-0400 Systolic blood pressure 161 mm[Hg] Roberto Scovanner Other [employer] Other Encounters Encounter Date Encounter Type Care Provider Facility Start: 02-03-2025 End: 02-03-2025 Patient encounter procedure Gerson Pierson MD Work Phone: [facility] [place] Work Phone: Start: 02-03-2025 End: 02-03-2025 ambulatory Gerson Pierson Facility:[facility] Start: 01-24-2025 End: 01-24-2025 Bamboo flowsheet Gerson Pierson MD Work Phone: [facility] Start: 01-24-2025 End: 01-24-2025 Bamboo flowsheet Gerson Pierson MD Work Phone: [facility] Start: 01-24-2025 End: 01-24-2025 Office outpatient visit 25 minutes Gerson Pierson MD Work Phone: [facility] Comment on above: Type 2 diabetes noemy itus with hyperglycemia, without long-term current use of insulin (CMS/HCC) (Primary Dx); Essential hypertension, benign (CMS/HCC); Major depressive disorder, recurrent episode, moderate (CMS/HCC); Generalized anxiety disorder (CMS/HCC); Primary insomnia; Class 2 severe obesity due to excess calories with serious comorbidity and body mass index (BMI) of 39.0 to 39.9 in adult (CMS/HCC); Diabetic polyneuropathy associated with type 2 diabetes mellitus (CMS/HCC); Annual physical exam; Breast cancer screening by mammogram Start: 01-24-2025 End: 01-24-2025 Patient encounter procedure Gerson Pierson MD Work Phone: [facility] Start: 01-24-2025 End: 01-24-2025 ambulatory GERSON PIERSON Not Available Start: 01-15-2025 End: 01-15-2025 ambulatory [facility] Work Phone: Start: 01-15-2025 End: 01-15-2025 Patient encounter procedure [facility] Work Phone: Start: 07-07-2024 End: 07-07-2024 ambulatory MD Gerson Pierson Work Phone: [facility] Work Phone: Start: 07-07-2024 End: 07-07-2024 Departed Referred MD Gerson Pierson Work Phone: [facility] Start: 07-07-2024 End: 07-07-2024 Patient encounter procedure MD Gerson Pierson Work Phone: [facility] Work Phone: Start: 06-11-2024 End: 06-11-2024 Patient encounter procedure MD Gerson Pierson Work Phone: [facility] Work Phone: Start: 04-04-2024 End: 04-04-2024 ambulatory FRANCHESCA BOTELLO Not Available Start: 03-21-2024 End: 03-21-2024 ambulatory FRANCHESCA BOTELLO Not Available Start: 03-20-2024 End: 03-20-2024 ambulatory GERSON PIERSON Not Available Start: 02-20-2024 End: 02-20-2024 ambulatory FRANCHESCA BOTELLO Not Available Start: 02-15-2024 End: 02-15-2024 ambulatory GERSON PIERSON Not Available Start: 01-16-2024 Patient encounter procedure Gerson Pierson MD Work Phone: [facility] Start: 11-15-2023 End: 11-15-2023 ambulatory Roberto Rodriguez Other [employer] Other Start: 11-15-2023 Office outpatient vi sit 15 minutes Roberto Rodriguez [facility] Start: 09-26-2023 End: 09-26-2023 ambulatory Roberto Rodriguez Other [employer] Other Start: 09-26-2023 Telephone encounter Roberto [facility] Start: 09-18-2023 End: 09-18-2023 ambulatory Roberto Rodriguez Other [employer] Other Start: 09-18-2023 Office outpatient vi sit 15 minutes Roberto Rodriguez [facility] Start: 08-15-2023 End: 08-15-2023 ambulatory Roberto Rodriguez Other [employer] Other Start: 08-15-2023 Telephone encounter Roberto [facility] Start: 08-14-2023 End: 08-14-2023 Admission to same day surgery center MD Gerson Pierson Work Phone: [facility] Work Phone: Start: 08-14-2023 End: 08-14-2023 ambulatory MD Gerson Pierson Work Phone: [facility] Work Phone: Start: 07-25-2023 End: 07-25-2023 ambulatory Roberto Rodriguez Other [facility] [employer] Other Start: 07-25-2023 Office outpatient ne w 30 minutes Roberto Rodriguez [facility] Start: 01-05-2023 End: 01-06-[address] GERSON PIERSON Facility:[facility] Start: 12-29-2022 End: 12-30-[address] DEANDRA BEATTY Facility:[facility] Start: 12-05-2022 End: 12-06-[address] INGRID YATES Facility:[facility] Start: 11-25-2022 End: 11-26-[address] CHINEDU SERRATO Facility:[facility] Start: 11-13-2022 End: 11-13-[address] SARIAH REN Facility:[facility] Start: 09-02-2022 End: 09-02-2022 ambulatory ADAM FLORIAN Facility:[facility] Start: 08-24-2022 Encounter for genera l adult medical examination without abnormal findings DR GERSON PIERSON [facility] Start: 08-22-2022 End: 08-23-[address] GERSON PIERSON Facility:[facility] Start: 08-22-2022 End: 08-23-2022 Encounter for general adult medical examination without abnormal findings DR GERSON PIERSON Facility:[facility] Start: 07-22-2022 End: 07-22-[address] ANNIKA CAMACHO Facility:[facility] Start: 06-19-2022 End: 06-19-2022 ambulatory ADAM FLORIAN Facility:[facility] Start: 02-04-2022 End: 02-05-[address] GERSON PIERSON Facility:[facility] Procedures Date Procedure Procedure Detail Performing Clinician Start: 02-03-2025 Ultrasonography of abdomen Gerson Pierson MD Work Phone: Start: 08-14-2023 Esophagogastroduodenoscopy MD Gerson Pierson Work Phone: Plan of Treatment Date Care Activity Detail Author Start: 04-23-2025 End: 04-23-2025 Patient encounter procedure 04/23/2025 1:30 PM EDT Office Visit [facility] [address] [place] [id number] Gerson Pierson MD [address] [place] [phone] [facility] Start: 01-24-2025 End: 01-24-2026 Basic metabolic 1998 panel - Serum or Plasma Basic metabolic panel Lab Routine Annual physical exam Expected: 01/24/2025 (Approximate), Expires: 01/24/2026 [facility] Comment on above: Expected: 01/24/2025 (Approximate), Expires: 01/24/2026 Start: 01-24-2025 End: 01-24-2026 CBC W Auto Differential panel - Blood CBC and differential Lab Routine Annual physical exam Expected: 01/24/2025 (Approximate), Expires: 01/24/2026 [facility] Comment on above: Expected: 01/24/2025 (Approximate), Expires: 01/24/2026 Start: 01-24-2025 End: 01-24-2026 Hemoglobin A1c/Hemoglobin.total in Blood Hemoglobin A1c Lab Routine Annual physical exam Expected: 01/24/2025 (Approximate), Expires: 01/24/2026 [facility] Comment on above: Expected: 01/24/2025 (Approximate), Expires: 01/24/2026 Start: 01-24-2025 End: 01-24-2026 Hepatic function 2000 panel - Serum or Plasma Hepatic function panel Lab Routine Annual physical exam Expected: 01/24/2025 (Approximate), Expires: 01/24/2026 [facility] Comment on above: Expected: 01/24/2025 (Approximate), Expires: 01/24/2026 Start: 01-24-2025 End: 01-24-2026 Lipid 1996 panel - Serum or Plasma Lipid panel Lab Routine Annual physical exam Expected: 01/24/2025 (Approximate), Expires: 01/24/2026 [facility] Comment on above: Expected: 01/24/2025 (Approximate), Expires: 01/24/2026 Start: 01-24-2025 End: 03-24-2026 MG Breast - bilateral Screening Bilateral screening mammogram Imaging Routine Breast cancer screening by mammogram Expected: 01/24/2025, Expires: 03/24/2026 [facility] Comment on above: Expected: 01/24/2025 , Expires: 03/24/2026 Start: 01-24-2025 End: 01-24-2026 Microalbumin/Creatinine panel in random Urine Microalbumin / creatinine, urine ratio Lab Routine Type 2 diabetes mellitus with hyperglycemia, without long-term current use of insulin ([facility]) Expected: 01/24/2025 (Approximate), Expires: 01/24/2026 [facility] Work Phone: Comment on above: Expected: 01/24/2025 (Approximate), Expires: 01/24/2026 Start: 01-24-2025 End: 01-24-2026 Thyrotropin [Units/volume] in Serum or Plasma TSH Lab Routine Annual physical exam Expected: 01/24/2025 (Approximate), Expires: 01/24/2026 [facility] Comment on above: Expected: 01/24/2025 (Approximate), Expires: 01/24/2026 Start: 01-24-2025 End: 01-24-2025 Patient encounter procedure 01/24/2025 11:30 AM EST Office Visit [facility] [address] [place] [id number] Gerson Pierson MD [address] [place] [id number] Arrived [facility] Comment on above: Arrived Start: 07-28-2024 Influenza vaccination Influenza Vacc ine (#1) [facility] Start: 07-08-2024 Bacteria identified in Urine by Culture [facility] Start: 07-07-2024 Bacteria identified in Urine by Culture [facility] Start: 11-13-2023 Urine screening for protein Diabetes: Urine Protein Screening [facility] Start: 08-14-2023 [facility] Start: 2021 Screening for malign ant neoplasm of breast Mammogram [facility] Start: 2011 Screening for malign ant neoplasm of cervix [facility] Start: 2002 Screening for malign ant neoplasm of cervix Pap Smear [facility] Start: 1991 Glaucoma screening Diabetes: R etinopathy Screening [facility] Start: 1981 Hemoglobin A1c measurement Diabetes: Hemoglobin A1C [facility] CT Abdomen and Pelvi s W contrast IV [facility] Immunizations Immunization Date Immunization Notes Care Provider Fa ciligui 08-20-2014 influenza virus vacc ine, unspecified formulation Gerson Pierson MD Work Phone: [facility] Payers Date Payer Category Payer Self-pay [id number] 2021 Worker's Compensation [employer] [id number] 2021 Unknown [id number] 2020 Private Health Insurance [facility] MEDICAID [id number] 1981 Unknown [id number] 2.16.840.1.024922.3.579.2 .593 1981 Unknown [id number] 2.16.840.1.050492.3.579.2 .59 1981 Unknown [id number] 2.16.840.1.659792.3.579.2 .59 1981 Unknown [id number] 2.16.840.1.969486.3.579.2 .1981 Unknown [id number] 2.16.840.1.402866.3.579.2 .1981 Unknown [id number] 2.16.840.1.954093.3.579.2 .1981 Unknown [id number] 2.16.840.1.050264.3.579.2 .1981 Unknown [id number] 2.16.840.1.161711.3.579.2 .1981 Unknown [id number] 2.16.840.1.142044.3.579.2 .1981 Unknown [id number] 2.16.840.1.341467.3.579.2 .59 1981 Unknown [id number] 2.16.840.1.660141.3.579.2 .1258 1981 Unknown [id number] 2.16.840.1.663759.3.579.2 .1258 1981 Unknown [id number] 2.16.840.1.930961.3.579.2 .1258 1981 Unknown [id number] 2.16.840.1.408750.3.579.2 .1258 1981 Unknown [id number] 2.16.840.1.217334.3.579.2 .1258 1981 Unknown [id number] 2.16.840.1.129427.3.579.2 .1258 1981 Unknown [id number] 2.16.840.1.913176.3.579.2 .1258 1981 Unknown [id number] 2.16.840.1.744636.3.579.2 .1258 1981 Unknown [id number] 2.16.840.1.304644.3.579.2 .1258 1981 Unknown [id number] 2.16.840.1.042074.3.579.2 .1258 1981 Unknown [id number] 2.16.840.1.349584.3.579.2 .1258 1981 Unknown [id number] 2.16.840.1.103020.3.579.2 .1258 1981 Unknown [id number] 2.16.840.1.519405.3.579.2 .1258 1981 Unknown [id number] 2.16.840.1.968452.3.579.2 .9 1959 Unknown [id number] 1959 Unknown [id number] 1959 Unknown [id number] Medicaid [employer] [id number] Unknown [facility] M000 [id number] Unknown [id number] 2.16.840.1.950630.3.579.2 .531 Unknown [id number] 2.16.840.1.163890.3.579.2 .531 Social History Date Type Detail Facility Start: 02-19-2024 End: 01-24-2025 Sex Assigned At [facility] Start: 03-14-2018 End: 08-11-2024 Tobacco smoking status NHIS Never smoked tobacco (finding) [facility] Start: 1980 Sex Assigned At Female [facility] Start: 01-15-2025 End: 02-04-2025 Sex Female (finding) [facility] Start: 01-16-2024 Tobacco use and exposure Smokeless tobacco non-user [facility] Start: 04-04-2024 End: 01-24-2025 Alcoholic beverage intake Current drinker of alcohol (finding) [facility] Start: 02-19-2024 End: 01-24-2025 History of Social function [facility] How often to you hav e a drink containing alcohol? Monthly or less [facility] How many standard drinks containing alcohol do you have on a typical day? 1 or 2 [facility] How often do you hav e 6 or more drinks on 1 occasion? Less than monthly [facility] Start: 07-04-2023 Alcohol Comment 1-2 drinks les s than monthly in the past year [facility] Start: 1980 Sex assigned at Not on file [facility] Medical Equipment Procedure Code Equipment Code Equipment Origin al Text Equipment Identifier Dates Test one time daily [id number] Start : 08-28-2024 End: 08-28-2025 Goals Date Patient Goal Desired Activity /State Clinical Notes 12-29-2022 to 02-03-2025 Gerson Pierson MD - 01/24/2025 12:52 PM Sonny Pierson MD - 01/24/2025 12:52 PM Sonny Pierson MD - 01/24/2025 12:51 PM Sonny Pierson MD - 01/24/2025 12:51 PM EST Note Date & Type Note Facility 02-03-2025 Radiology Diagnostic study note [facility] [place] [address] Ultrasound Report Signed Patient: Nia Schofield MR#: [id number] : 1980 Acct:[id number] Age/Sex: 44 / F ADM Date: 5 Loc: Room: Type: [facility] Attending Dr: Roberto Rodriguez [employer] Ordering Provider: Roberto Rodriguez APRN Date of Service: 02/03/25 US/US abdomen limited: K58.1 - Irritable bowel syndrome with constipation Copies to: Roberto Rodriguez APRN~ LIMITED ABDOMINAL ULTRASOUND: CLINICAL HISTORY: Irritable bowel syndrome with constipation bloating and pain COMPARISON: None TECHNIQUE: Grayscale and color Doppler images of the right upper quadrant organswere obtained. FINDINGS: Pancreas: Visualized portions appear unremarkable. Liver: Unremarkable. Gallbladder: Unremarkable. CBD: 4.1 mm US/US abdomen limited IMPRESSION: NO ACUTE PROCESS. . Impression dictated by: Alvaro Walker Jr., D.Luba02/03/2025 11:52 AM Dictation Location: [employer] Tech: Judy Barraza Transcribed By: ONOFRE 02/03/25 1152 Dictated By: Alvaro Walker Jr, DO 02/03/25 1151 Signed By: 02/03/25 1152 [facility] 01-24-2025 History of Present illness Narrative Associated Problem(s): Type 2 diabetes mellitus with hyperglycemia, without long-term current use of insulin (CMS/HCC) Reports BS improved and due for A1C. Stick to ADA diet and limit carbs. Associated Problem(s): Primary insomnia Sleeping well with medication and continue. Associated Problem(s): Major depressive disorder, recurrent episode, moderate (CMS/HCC) Symptoms tolerable with medication and continue. Associated Problem(s): Generalized anxiety disorder (CMS/HCC) Symptoms tolerable with medication and continue. Associated Problem(s): Essential hypertension, benign (CMS/HCC) BP elevated and add losartan. Monitor PRN. Discussed DASH diet. Associated Problem(s): Diabetic polyneuropathy ([facility]) Symptoms stable and continue elavil. Associated Problem(s): Class 2 severe obesity due to excess calories with serious comorbidity and body mass index (BMI) of 39.0 to 39.9 in adult ([facility]) Weight down 11 pounds. Images from the original note were not included. Subjective Patient ID: Nia Schofield is a 44 y.o. female who presents for Hypertension (Bp running high ongoing 2 weeks). Follow up DM, HTN, depression, anxiety, insomnia, and weight. Reports BS improved and 100-110. Tries to eat well and stick to ADA diet. Denies signs of elevated BS such as polyuria, polyphagia or polydipsia. Last A1C 6.9. Checking BP PRN and elevated over the past few weeks. BP elevated today. Taking medication daily and tolerating without side effects. Mood controlled with medication. Not as down or sad. Still occasional symptoms but interacting well with others and feels happier. Anxiety stable. Not as stressed out or overwhelmed. Not as nervous or worry as much. Not as au or irritable. Sleeping well with medication. Able to fall asleep and stay asleep. Wakes up rested in am. Hypertension Pertinent negatives include no chest pain, palpitations or shortness of breath. Review of Systems Respiratory: Negative for cough, shortness of breath and wheezing. Cardiovascular: Negative for chest pain and palpitations. Gastrointestinal: Negative for abdominal pain, diarrhea, nausea and vomiting. Genitourinary: Negative for dysuria. Objective Physical Exam Constitutional: General: She is not in acute distress. Appearance: Normal appearance. HENT: Head: Normocephalic. Right Ear: Tympanic membrane normal. Left Ear: Tympanic membrane normal. Eyes: Extraocular Movements: Extraocular movements intact. Pupils: Pupils are equal, round, and reactive to light. Cardiovascular: Rate and Rhythm: Normal rate and regular rhythm. Heart sounds: No murmur heard. No friction rub. No gallop. Pulmonary: Effort: Pulmonary effort is normal. Breath sounds: Normal breath sounds. No wheezing, rhonchi or rales. Abdominal: General: Bowel sounds are normal. There is no distension. Palpations: Abdomen is soft. Tenderness: There is no abdominal tenderness. There is no guarding or rebound. Musculoskeletal: Cervical back: Neck supple. Right lower leg: No edema. Left lower leg: No edema. Neurological: Mental Status: She is alert. Assessment/Plan Problem List Items Addressed This Visit Essential hypertension, benign (CMS/HCC) BP elevated and add losartan. Monitor PRN. Discussed DASH diet. Relevant Medications losartan (Cozaar) 25 MG tablet Generalized anxiety disorder (CMS/HCC) Symptoms tolerable with medication and continue. Major depressive disorder, recurrent episode, moderate (CMS/HCC) Symptoms tolerable with medication and continue. Diabetic polyneuropathy (CMS/HCC) Symptoms stable and continue elavil. Type 2 diabetes mellitus with hyperglycemia, without long-term current use of insulin ([facility]) - Primary Reports BS improved and due for A1C. Stick to ADA diet and limit carbs. Relevant Orders Microalbumin / creatinine, urine ratio Primary insomnia Sleeping well with medication and continue. Annual physical exam Relevant Orders Hemoglobin A1c Basic metabolic panel CBC and differential Hepatic function panel Lipid panel TSH Class 2 severe obesity due to excess calories with serious comorbidity and body mass index (BMI) of 39.0 to 39.9 in adult (CMS/HCC) Weight down 11 pounds. Other Visit Diagnoses Breast cancer screening by mammogram Relevant Orders Bilateral screening mammogram documented in this encounter [facility] 01-15-2025 Evaluation note Diagnosis Onset Date Resolution Bloating acute January 15, 2025 1:34pm GERD (gastroesophageal reflux disease) acute January 15 025 1:34pm Irritable bowel syndrome with constipation acute January 15 025 1:34pm [facility] Work Phone: 1(697) 205-740007-16-2024 Evaluation note* Author Roberto Rodriguez [facility] Authored June 11, 2024 3:43 pm Patient positive for constip ation, abdominal distention [facility] Work Phone: [phone]) 217-888112-20-2023 Evaluation note* Encounter Date Diagnosis Assessment Notes Treatment Notes Treatment Clinical Notes Oct, GERD (gastroesophageal reflux disease) (ICD-10 - K21.9) Famotidine was prescribed at her last visit. She states she has not had as much acid reflux. She still has some bloating altough states this is not as uncomfortable in the past. We will continue this unchanged. Oct, Constipation (ICD-10 - K59.00) This patient had improvement on Miralax titration. She was prescribed Trulance but this was denied by insurance & they requested a trial of Lactulose. This was sent to her pharmacy but she states she was not aware of this & she has not started it. This will be sent in again as she is starting to become constipated once again. Follow up in one month. Oct, Nausea (ICD-10 - R11.0) [employer] [facility] Other 10-23-2023 Evaluation note* Encounter Date Diagnosis Assessment Notes Treatment Notes Treatment Clinical Notes Aug, GERD (gastroesophageal reflux disease) (ICD-10 - K21.9) PATIENT TO CONTINUE ON THE OMEPRAZOLE 40MG TWIE DAILY. Aug, Abdominal pain (ICD-10 - R10.9) Aug, Constipation (ICD-10 - K59.00) PATIENT HAS BEEN USING MIRALAX WITH NO RELIEF. WILL HAVE PATIENT START ON TRULANCE DAILY. Aug, Nausea (ICD-10 - R11.0) WILL HAVE PATIENT START PEPCID 40MG DAILY TWICE DAILY, ONCE AT LUNCH AND ONCE AT BEDTIME. [employer] Other 09-18-2023 Procedure [facility]08-29-2023 Evaluation note* Encounter Date Diagnosis Assessment Notes Treatment Notes Treatment Clinical Notes Jun, GERD (gastroesophageal reflux disease) (ICD-10 - K21.9) Patient reports that she is not improving with omeprazole Patient will have an EGD scheduled today, prep instruction given today Risks and benefits of procedure explained to patient; patient verbalizes understanding. Jun, Nausea (ICD-10 - R11.0) Jun, Abdominal pain (ICD-10 - R10.9) Patinet reports that she still has abdominal pain with omeprazole Jun, Constipation (ICD-10 - K59.00) Patient will start daily miralax up to three times daily Patient is to add OTC fiber and probiotic [facility]VN Other 02-02-2023 NotePROCEDURE: XR GI UPPER AIR KUB DUAL CONTRAST, XR CINERADIOGRAPHY COMPARISON: None. HISTORY: Gastroesophageal reflux disease without esophagitis TECHNIQUE: An air contrast upper gastrointestinal series was performed in the usual manner. Standard level fluoroscopic mode of operation utilized. FINDINGS: ESOPHAGUS:Normal. No visible obstruction, dilatation, reflux or hernia STOMACH: Normal. No obstruction, mass, or ulceration. Normal motility. DUODENUM:Normal. No ulceration or diverticulum. OTHER: Negative. IMPRESSION: Normal examination. Electronically authenticated by: DEANDRA BEATTY Date: 2022-12-29 11:51[facility]02-02-2023 NotePROCEDURE: XR GI UPPER AIR KUB DUAL CONTRAST, XR CINERADIOGRAPHY COMPARISON: None. HISTORY: Gastroesophageal reflux disease without esophagitis TECHNIQUE: An air contrast upper gastrointestinal series was performed in the usual manner. Standard level fluoroscopic mode of operation utilized. FINDINGS: ESOPHAGUS:Normal. No visible obstruction, dilatation, reflux or hernia STOMACH: Normal. No obstruction, mass, or ulceration. Normal motility. DUODENUM:Normal. No ulceration or diverticulum. OTHER: Negative. IMPRESSION: Normal examination. Electronically authenticated by: DEANDRA BEATTY Date: 2022-12-29 11:51[facility] [place] noteNo InformationNortAdvanced [facility] TIKI.VN Other Evaluation noteNo assessment information [facility] Work Phone: Evaluation note* Diagnosis Type 2 diabetes mellitus with hyperglycemia, without long-term current use of insulin (CMS/HCC)- Primary Essential hypertension, benign (CMS/HCC) Essential hypertension, benign Diabetic polyneuropathy associated with type 2 diabetes mellitus (CMS/HCC) Major depressive disorder, recurrent episode, moderate (CMS/HCC) Major depressive disorder, recurrent episode, moderate Generalized anxiety disorder (CMS/HCC) Generalized anxiety disorder Gastroesophageal reflux disease without esophagitis Esophageal reflux Primary insomnia Persistent disorder of initiating or maintaining sleep Annual physical exam Routine general medical examination at a [facility] care facility Morbid obesity due to excess calories (CMS/HCC) Type 2 diabetes mellitus with hyperglycemia, without long-term current use of insulin ([facility]/HCC)- Primary Essential hypertension, benign (CMS/HCC) Essential hypertension, benign Major depressive disorder, recurrent episode, moderate (CMS/HCC) Major depressive disorder, recurrent episode, moderate Generalized anxiety disorder (CMS/HCC) Generalized anxiety disorder Primary insomnia Persistent disorder of initiating or maintaining sleep Morbid obesity due to excess calories (CMS/HCC) Type 2 diabetes mellitus with hyperglycemia, without long-term current use of insulin (CMS/HCC)- Primary Essential hypertension, benign (CMS/HCC) Essential hypertension, benign Major depressive disorder, recurrent episode, moderate (CMS/HCC) Major depressive disorder, recurrent episode, moderate Generalized anxiety disorder (CMS/HCC) Generalized anxiety disorder Primary insomnia Persistent disorder of initiating or maintaining sleep Morbid obesity due to excess calories (CMS/HCC) Type 2 diabetes mellitus with hyperglycemia, without long-term current use of insulin (CMS/HCC)- Primary Essential hypertension, benign (CMS/HCC) Essential hypertension, benign Major depressive disorder, recurrent episode, moderate (CMS/HCC) Major depressive disorder, recurrent episode, moderate Generalized anxiety disorder (CMS/HCC) Generalized anxiety disorder Primary insomnia Persistent disorder of initiating or maintaining sleep Class 2 severe obesity due to excess calories with serious comorbidity and body mass index (BMI) of 39.0 to 39.9 in adult ([facility]) Diabetic polyneuropathy associated with type 2 diabetes mellitus ([facility]/HCC) Annual physical exam Routine general medical examination at a health care facility Breast cancer screening by mammogram documented [facility] this encounter [facility] Author Juarez Griffiths [facility] August 14, 2023 2:40pm Note Date/Time August 14, 2023 2:40pm [facility] [address] [place] [address] Gastroenterology H&P Signed Patient: Nia Schofield MR#: [id number] : 1980 Acct:[id number] Age/Sex: 43 / F Adm Date: 3 Loc: Room: Type: [facility] Attending Dr: Juarez Griffiths MD Copies to: MD Gerson Christopher MD~ Date of Service: 08/14/2023 HISTORY & PHYSICAL: Patient's history with special attention to the cardiovascular, pulmonary systems and the current problem was reviewed with the patient immediately prior to the procedure. Present medications and doses reviewed in the EMR. Allergies and pertinent laboratory tests were also reviewedat this time in the EMR. The physical examination, as below, was then performed. Indication, assessment and HPI: 43-year-old female presents for EGD to evaluate dyspepsia and nausea, on omeprazole 40 mg daily. Family history of GI malignancy? No PHYSICAL EXAMINATION Mouth and Pharynx : Moist mucus membranes, normal dentition Cardiac: Regular rate, regular rhythm Pulmonary: Clear to auscultation bilaterally, no wheezing Neurological: Alert and oriented x3, no focal deficits noted Abdomen: Abdomen soft, non-tender REVIEW OF SYSTEMS Constitutional: Denies malaise, fevers Cardiovascular: Denies chest pain, palpitations Respiratory: Denies shortness of breath, wheezing Gastrointestinal: Per HPI Genitourinary: Denies dysuria, polyuria Musculoskeletal: Denies joint swelling, joint stiffness Neurological: Denies numbness, tingling Integumentary: Denies rashes, skin lesions Endocrine: Denies fatigue, weight loss Written informed consent obtained from the patient. Risks (including but not limited to perforation, infection, bloating, bleeding, need for emergent surgery and loss of life), benefits and alternatives explained and questions answered. The patient verbalized understanding. Based on history patient is an appropriate candidate for the procedure. Juarez Griffiths MD Documented By: Juarez Griffiths MD 08/14/23 1437 Signed By: <Electronically signed by Juarez Griffiths MD> 08/14/23 1445 [facility] Work Phone: History general Narrative - Reported* Type Description Date Medical History hypertension [employer] [facility] Other Hospital Discharge instructions Additional Instructions DISCHARGE INSTRUCTIONS FOR UPPER ENDOSCOPY WHAT TO EXPECT: - You may feel full, gassy or cramping after your procedure. In some cases, this may be from a few hours to a day. Walking may help relieve the discomfort. - Your throat may feel sore today from the scope that the doctor passed through your throat to visualize your stomach. Take a throat lozenge or suck on ice to ease the discomfort. - You may notice some streaks of blood in your sputum if the doctor has taken a biopsy. - You should begin to recover from anesthesia within 1 hour of the procedure, however may feel groggy for the next 24 hours. DO's AND DON'Ts: - Call your doctor right away if you have a hard abdomen, severe pain, vomiting or if you cough up large amounts of blood. - Call your doctor if you develop any rashes, hives or difficulty breathing. - If you take 81 mg aspirin for your heart it is safe to resume this medication. - If you take other blood thinner medications your doctor will instruct you when these can safely be resumed. - Do NOT drive for 24 hours. - Do NOT operate machinery such as power tools, lawn mowers, snow blowers, sewing machines, etc. for 24 hours. - Avoid alcoholic beverages and drugs for allergies, nerves, or sleep. - Do NOT stay alone. Do NOT leave your child unattended. - Do NOT make important personal or business decisions or sign any legal documents. - Eat solid foods and drink liquids in smaller amounts than usual until normal appetite returns. If you should experience an upset stomach, liquids high in sugar content (soda, Christiano-Aid, non-acid juices) are recommended. - Do NOT smoke. - Do take it easy today. You need not stay in bed, but avoid strenuous activities such as jogging or working out. FOLLOW UP & RECOMMENDATIONS: -Please call the office and make a follow up appointment to see me in [#] weeks if you do not have an appointment scheduled. -Notify the doctor if you have any problems. -Follow up with PCP. -Office number [phone].[facility] Work Phone: Summary Purpose Family History Relationship Condition Age at Onset Recorded Date/T danica Not Specified Diabetes mellitus Unknown father Atrial fibrillation Unknown Hypertension Unknown Relationship Condition Age at Onset Recorded Date/T danica mother Diabetes mellitus Unknown father Atrial fibrillation Unknown Hypertension Unknown Advance Directives Advance Directive Response Recorded Date/ Time Advance Directives No March 12, 018 5:55pm Advance Directive Response Recorded Date/ Time Advance Directives No March 12, 018 4:55pm Chief Complaint and Reason for Visit Chief Complaint GERD, Nausea, Abdomi nal Pain Chief Complaint 6 WEEK FOLLOW UP Dysuria, Sinus Congestion R30.0 Reason for Visit Bloating GERD (gastroesophageal reflux disease) Irritable bowel syndrome with constipation Acute conjunctivitis, bilateral Amenorrhea Dysuria Chief Complaint Admit Date 1 month f/u-ibs-c January 15, 2025 1:34pm Chief Complaint Admit Date 1 month f/u-ibs-c January 15, 2025 1:34pm K58.1 R14.0 R10.9 February 03, 2025 8:1 6am Reason for Visit Admit Date Bloating January 15, 2025 1:34pm GERD (gastroesophageal reflux disease) F ebruary 2024 1:34pm Irritable bowel syndrome with constipati on January 15, 2025 1:34pm Additional Source Comments INFORMATION SOURCE (unrecogn ized section and content) DATE CREATED AUTHOR 05/21/2022 [facility] DATE CREATED AUTHOR AUTHOR'S ORGANIZ ATION 01/09/2023 [facility] DATE CREATED AUTHOR AUTHOR'S ORGANIZ ATION 01/26/2025 [facility] EPIC DATE CREATED AUTHOR AUTHOR'S ORGANIZ ATION 02/04/2025 [facility] REASON FOR VISIT (unrecogniz ed section and content) Reason Comments Hypertension Bp running high ongo ing 2 weeks Care Teams (unrecognized sec tion and content) Team Status: Active Member Role Status Dates Gerson Pierson MD Primary Care Provider Active Team Status: Inactive Member Role Status Dates Gerson Pierson MD Primary Care Provider Active Juarez Griffiths MD Attending Provider Active Team Status: Inactive Member Role Status Dates Gerson Pierson MD Primary Care Provider Active S tart: June 11, 2024 End: June 11, 2024 Roberto Rodriguez APRN Attending Provider Active Start: June 11, 2024 End: June 11, 2024 Team Status: Inactive Member Role Status Dates Gerson Pierson MD Primary Care Provider Active S tart: July 07, 2024 End: July 07, 2024 Ana Diallo APRN Attending Provider Active Start: July 07, 2024 End: July 07, 2024 Team Status: Inactive Member Role Status Dates Gerson Pierson MD Primary Care Provider Active S tart: January 15, 2025 End: January 15, 2025 Roberto Rodriguez APRN Attending Provider Active Start: January 15, 2025 End: January 15, 2025 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 Relationship Specialty Start Date End Date Gerson Pierson MD [address] [place] [id number] PCP - [facility] 12/25/23 Gerson Pierson MD [address] [place] [phone] PCP [facility] 08/27/24 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 Relationship Specialty Start Date End Date Gerson Pierson MD [address] [place] [id number] PCP - [facility] 12/25/23 Gerson Pierson MD [address] [place] [id number] [facility] 08/27/24 Team Status: Inactive Member Role Status Dates Gerson Pierson MD Primary Care Provider Active S tart: February 03, 2025 End: February 03, 2025 Roberto Rodriguez APRN Attending Provider Active Start: February 03, 2025 End: February 03, 2025 Goals (unrecognized section and content) Goals may be documented in a n alternate section FOR RECORDS PERTAINING TO PATIENTS WHO ARE OR HAVE BEEN ENROLLED IN A CHEMICAL DEPENDENCY/SUBSTANCEABUSE PROGRAM, SOME INFORMATION MAY BE OMITTED. This clinical summary was aggregated from multiple sources. Caution should be exercised in using it in the provision of clinical care. This summary normalizes information from multiple sources, and as a consequence, information in this document may materially change the coding, format and clinical context of patient data. In addition, data may be omitted in some cases. CLINICAL DECISIONS SHOULD BE BASED ON THE PRIMARY CLINICAL RECORDS. [facility]. provides no warranty or guarantee of the accuracy or completeness of information in this document.
[2025-02-15 09:46] LABS: Basophils Percent Auto 0.3 % (0.2-2.0); Eosinophils Absolute Auto 0.2 10^3/uL (0.0-0.7); Eosinophils Percent Auto 1.7 % (0.9-7.0); Hematocrit 43.1 % (36.0-48.0); Immature Granulocytes Abs Auto 0.06 10^3/uL (0.00-0.03); Immature Granulocytes Pct Auto 0.4 % (0.0-0.5); Lymphocytes Absolute Auto 2.2 10^3/uL (1.2-3.8); Lymphocytes Percent Auto 14.9 % (20.5-60.0); Mean Corpuscular HGB Conc 32.5 g/dL (29.9-35.2); Mean Corpuscular Hemoglobin 27.5 pg (26.7-34.0); Mean Corpuscular Volume 84.7 fL (81.0-99.0); Mean Platelet Volume 9.8 fL (9.5-13.5); Monocytes Absolute Auto 1.1 10^3/uL (0.3-0.8); Monocytes Percent Auto 7.3 % (1.7-12.0); Neutrophils Absolute Auto 10.9 10^3/uL (1.4-6.5); Neutrophils Percent Auto 75.4 % (43.0-75.0); Platelet Count 414 10^3/uL (150-450); Red Blood Count 5.09 10^6/uL (4.20-5.40); Red Cell Distribution Width 13.6 % (11.0-15.0); White Blood Count 14.4 10^3/uL (4.0-11.0)
[2025-02-15 09:50] LABS: Creatinine Urine Random 202.18 mg/dL (20.00-300.00); Microalbum Creatinine Ratio Ur 16.8 mg/g (0.0-29.9); Microalbumin Urine Random 3.4 mg/dL (<=30.0)
[2025-02-15 09:51] LABS: Estimated Average Glucose 123 mg/dL; Glycohemoglobin A1C 5.9 % (4.5-6.2)
[2025-02-15 12:19] LABS: Alanine Aminotransferase 24 U/L (14-59); Albumin Globulin Ratio 0.8; Albumin Level 3.7 g/dL (3.4-5.0); Alkaline Phosphatase 93 U/L (46-116); Anion Gap 9.5; Aspartate Amino Transferase 13 U/L (15-37); BUN Creatinine Ratio 20.3; Bilirubin Direct 0.1 mg/dL (0.0-0.2); Bilirubin Total 0.5 mg/dL (0.2-1.0); Calcium 9.1 mg/dL (8.5-10.1); Chloride 104 mmol/L (98-107); Chol HDL Ratio 2.6; Cholesterol 126 mg/dL (<=200); Estimated GFR (African America >60 (>=60 mL/min/1.73m^2); Estimated GFR (Non-African Ame >60 (>=60 mL/min/1.73m^2); Globulin 4.5 g/dL; Glucose 144 mg/dL (74-106); HDL Cholesterol 48 mg/dL (40-60); Potassium 3.5 mmol/L (3.5-5.1); Sodium 141 mmol/L (136-145); Thyroid Stimulating Hormone 1.009 uIU/mL (0.358-3.740); Total Protein 8.2 g/dL (6.4-8.2); Triglycerides 152 mg/dL (<=150); VLDL CHOLESTEROL 30.4 mg/dL
== END 2025-02-15 09:20 | disposition home or self-care (01) ==
LOC: LAB 09:19
PROVIDERS: PCP Family Medicine; Visit Provider Family Medicine
DX: Z00.00 Encounter for general adult medical examination without abnormal findings (principal); E11.65 Type 2 diabetes mellitus with hyperglycemia
CPT/HCPCS: 36415; 80048; 80061; 80076; 82043; 82570; 83036; 84443; 85025

== ENCOUNTER 2025-08-11 15:27 | Outpatient (OUT) | payer OTHER, SELFPAY ==
--- OUTSIDE RECORDS SUMMARY | 2025-08-11 18:54 | XMS_ITS | CCD ---
Author Organization [facility] Care Team Providers Care Mental Health Associate Name Role Phone ROJELIO, DR CHINEDU Atkinson [...] Unavailable MD Gerson Pierson Primary Care Provider [phone] MD Juarez Griffiths Attending Provider [phone] MD Gerson Pierson Primary Care Provider [phone] CHRISTIANE Diallo Attending Provider [phone] Gerson Pierson MD Primary Care Provider Gerson [...] Unavailable Gerson Pierson MD Primary Care Provider Roberto Rodriguez APRN Attending Provider Medications Current [...] 14, 2023 12:00am take 1 capsule by [facility] every twenty-four hours Vitamin D3 50 MCG (1999 [place]) 1 capsule Orally Once a day Active famotidine 40 mg oral tablet (10 sources) Histamine-2 Receptor Antagonist Start: 01-09-2024 End: 01-15-2025 take 1 tablet by mouth twice daily Famotidine 40 mg tablet Active 40 MG PO Twice daily 60 January 15, 2025 3:10pm Start: 09-18-2023 take 1 tablet by [facility] every twelve hours Famotidine 40 MG [...] meals. 30 tablet 04/17/2024 01/24/2025 Discontinued Adipex-P Not-Osavldo ing/PRN Adipex-P Not-Osvaldo ing plecanatide 3 mg oral tablet (4 sources) Start: 01-15-2024 End: 01-24-2025 take 1 tablet by mouth in the morning Trulance tablet tablet Take 3 mg by mouth in the morning. 01/15/2024 01/24/2025 Discontinued Start: 09-18-2023 take 1 tablet by [facility] twice daily Trulance 3 MG 1 tablet Orally twice daily for 30 days Aug, Active polyethylene glycol 3350 24500 mg powder for oral solution (5 sources) [...] hyperglycemia, without long-term current use of insulin ([facility]) Take 1 tablet (14 mg) by mouth [...] 01-16-2024 Chronic Other aftercare (1 source) Other group home (current) drug therapy; Translations: [OTH [employer] CURRENT DRUG THERAPY] Onset: 11-30-2022 Episodic Other aftercare (1 source) alf (current) use of oral hypoglycemic drugs; Translations: [GUN STOCK [employer]ER USE ORAL HYPOGLYCEMIC DX] Onset: 01-04-2023 Episodic [...] (BMI) of 39.0 to 39.9 in adult ([facility])] Onset: 01-16-2024 01-24-2025 Chronic Other screening for [...] aminotransferase [Enzymatic activity/volume] in Serum or Plasma [facility] Albumin [Mass/volume] in Ser um or Plasma by Bromocresol green (BCG) dye binding methoOrdered By: Roberto Rodriguez on 02-03-2025 Albumin BCG dye [Mass/Vol] Albumin [Mass/volume] in Serum or Plasma by Bromocresol green (BCG) dye binding metho 3.5-5.7 [facility] Alkaline phosphatase [Enzyma tic activity/volume] in Serum or PlasmaOrdered By: Roberto Rodriguez on 02-03-2025 ALP [Catalytic activity/Vol] Alkaline phosphatase [Enzymatic activity/volume] in Serum or Plasma 34-104 [facility] Aspartate aminotransferase [ Enzymatic activity/volume] in Serum or PlasmaOrdered By: Roberto Rodriguez on 02-03-2025 AST [Catalytic activity/Vol] Aspartate aminotransferase [Enzymatic activity/volume] in Serum or Plasma Low 13-39 [facility] Basophils Auto (Bld) [#/Vol] Ordered By: Roberto Rodriguez on 02-03-2025 Basophils (Bld) [#/Vol] Automated basoph il count 0.0-0.2 [facility] Basophils/100 WBC Auto (Bld) Ordered By: Roberto Rodriguez on 02-03-2025 Basophils/100 WBC (Bld) Automated basophil % . [facility] Bilirubin.total [Mass/volume ] in Serum or PlasmaOrdered By: Roberto Rodriguez on 02-03-2025 Bilirubin [Mass/Vol] Bilirubin.total [Mass/volume] in Serum or Plasma 0.3-1.0 [facility] Calcium [Mass/volume] in Ser um or PlasmaOrdered By: Roberto Rodriguez on 02-03-2025 Calcium [Mass/Vol] Calcium [Mass/volume ] in Serum or Plasma 8.6-10.3 [facility] Carbon dioxide, total [Moles /volume] in Serum or PlasmaOrdered By: Roberto Rodriguez on 02-03-2025 CO2 [Moles/Vol] Carbon dioxide, tota l [Moles/volume] in Serum or Plasma 21.0-31.0 [facility] Chloride [Moles/volume] in S iveth or PlasmaOrdered By: Roberto Rodriguez on 02-03-2025 Chloride [Moles/Vol] Chloride [Moles/volume] in Serum or Plasma 98-107 [facility] Complete Blood Count Auto Di ffon 02-03-2025 Basophils (Bld) [#/Vol] 0.1 10*3/uL Normal 0.0-0.2 [facility] Comment on above: Result Comment: PERF ORMED BY: [place] [address] PATHOLOGIST PRINCIPAL TECHNICAL WRITER RAY BANKS M.D. Performed By: #### C MP, CBC #### [address] Basophils/100 WBC (Bld) 0.5 % Normal . [facility] Comment on above: Performed By: #### C MP, CBC #### [address] Eosinophils (Bld) [#/Vol] 0.3 10*3/uL Normal 0.0-0.45 [facility] Comment on above: Performed By: #### C MP, CBC #### [address] Eosinophils/100 WBC (Bld) 2.8 % Normal . [facility] Comment on above: Performed By: #### C MP, CBC #### [address] Erythrocyte distribution width (RBC) [Ratio] 14.4 % Normal 11.9-15.3 [facility] Comment on above: Performed By: #### C MP, CBC #### [address] Hematocrit (Bld) [Volume fraction] 38.8 % Normal 34.0-46.4 [facility] Comment on above: Performed By: #### C MP, CBC #### [address] Hemoglobin (Bld) [Mass/Vol] 13.3 g/dL Normal 11.8-15.4 [facility] Comment on above: Performed By: #### C MP, CBC #### [address] Lymphocytes (Bld) [#/Vol] 2.3 10*3/uL Normal 1.00-4.8 [facility] Comment on above: Performed By: #### C MP, CBC #### [address] Lymphocytes/100 WBC (Bld) 22.8 % Normal . [facility] Comment on above: Performed By: #### C MP, CBC #### [address] MCH (RBC) [Entitic mass] 27.9 pg Normal 24.7-34.3 [facility] Comment on above: Performed By: #### C MP, CBC #### [address] MCV (RBC) [Entitic vol] 81.4 fL Normal 80-100 [facility] Comment on above: Performed By: #### C MP, CBC #### [address] Mean Corpuscular HGB Conc 34.3 g/dL Normal 32.0-35.0 [facility] Comment on above: Performed By: #### C MP, CBC #### [place] [address] [place] Monocytes (Bld) [#/Vol] 0.8 10*3/uL Normal 0.0-0.8 [facility] Comment on above: Performed By: #### C MP, CBC #### [address] Monocytes/100 WBC (Bld) 7.7 % Normal . [facility] Comment on above: Performed By: #### C MP, CBC #### [place] [address] [place] Neutrophils (Bld) [#/Vol] 6.8 10*3/uL Normal 1.8-7.7 [facility] Comment on above: Performed By: #### C MP, CBC #### [address] Neutrophils/100 WBC (Bld) 66.2 % Normal . [facility] Comment on above: Performed By: #### C MP, CBC #### [address] NRBC% 0.0 /100{WBC} Normal 0-0.5 [facility] Comment on above: Performed By: #### C MP, CBC #### [address] Platelet mean volume (Bld) [Entitic vol] 8.1 fL Normal 6.3-10.7 [facility] Comment on above: Performed By: #### C MP, CBC #### [address] Platelets (Bld) [#/Vol] 356 10*3/uL Normal 150-450 [facility] Comment on above: Performed By: #### C MP, CBC #### [address] RBC (Bld) [#/Vol] 4.77 10*6/uL Normal 3.60-5.00 [facility] Comment on above: Performed By: #### C MP, CBC #### [address] WBC (Bld) [#/Vol] 10.3 10*3/uL Normal 3.8-11.6 [facility] Comment on above: Performed By: #### C MP, CBC #### [address] Comprehensive Metabolic Pane trever 02-03-2025 Albumin [Mass/Vol] 4.0 g/dL Normal 3.5-5.7 [facility] Comment on above: Performed By: #### C MP, CBC #### [address] Albumin/Globulin [Mass ratio] 1.3 {ratio} Normal [facility] Comment on above: Performed By: #### C MP, CBC #### [address] ALP [Catalytic activity/Vol] 64 U/L Normal 34-104 [facility] Comment on above: Result Comment: PERF ORMED BY: [place] [address] PATHOLOGIST PRINCIPAL TECHNICAL WRITER RAY BANKS M.D. Performed By: #### C MP, CBC #### [address] ALT [Catalytic activity/Vol] 16 U/L Normal 7-52 [facility] Comment on above: Performed By: #### C MP, CBC #### [address] Anion gap [Moles/Vol] 9.2 mmol/L Normal 6.0-15.0 [facility] Comment on above: Performed By: #### C MP, CBC #### [address] AST [Catalytic activity/Vol] 12 U/L Low 13-39 [facility] Comment on above: Performed By: #### C MP, CBC #### [address] Bilirubin [Mass/Vol] 0.6 mg/dL Normal 0.3-1.0 [facility] Comment on above: Performed By: #### C MP, CBC #### [address] Calcium [Mass/Vol] 9.3 mg/dL Normal 8.6-10.3 [facility] Comment on above: Performed By: #### C MP, CBC #### [address] Chloride [Moles/Vol] 104 mmol/L Normal 98-107 [facility] Comment on above: Performed By: #### C MP, CBC #### [place] [address] [place] CO2 [Moles/Vol] 30.7 mmol/L Normal 21.0-31.0 [facility] Comment on above: Performed By: #### C MP, CBC #### [place] [address] [place] Creatinine [Mass/Vol] 0.67 mg/dL Normal 0.60-1.20 [facility] Comment on above: Performed By: #### C MP, CBC #### [place] [address] [place] GFR/1.73 sq M.predicted MDRD (S/P/Bld) [Vol rate/Area] mL/min/{1.73_m2} Normal [facility] Comment on above: Performed By: #### C MP, CBC #### [address] Globulin (S) [Mass/Vol] 3.2 g/dL Normal [facility] Comment on above: Performed By: #### C MP, CBC #### [address] Glucose [Mass/Vol] 94 mg/dL Normal 70-100 [facility] Comment on above: Result Comment: [facility] Glucose Reference Range is dependent on time and content of last meal. Glucose of more than 200 mg/dL in a nonstressed, ambulatory subject supports the diagnosis of Diabetes Mellitus. ADA recommended reference range Performed By: #### C MP, CBC #### [address] Potassium [Moles/Vol] 3.9 mmol/L Normal 3.5-5.1 [facility] Comment on above: Performed By: #### C MP, CBC #### [address] Protein [Mass/Vol] 7.2 g/dL Normal 6.4-8.9 [facility] Comment on above: Performed By: #### C MP, CBC #### [place] [address] [place] Sodium [Moles/Vol] 140 mmol/L Normal 136-145 [facility] Comment on above: Performed By: #### C MP, CBC #### [address] Urea nitrogen [Mass/Vol] 10 mg/dL Normal 7-25 [facility] Comment on above: Performed By: #### C MP, CBC #### [facility] [address] Creatinine [Mass/volume] in Serum or PlasmaOrdered By: Roberto Rodriguez on 02-03-2025 Creatinine [Mass/Vol] Creatinine [Mass/volume] in Serum or Plasma 0.60-1.20 [facility] Eosinophils Auto (Bld) [#/Vo l]Ordered By: Roberto Rodriguez on 02-03-2025 Eosinophils (Bld) [#/Vol] Automated eosinophil count 0.0-0.45 [facility] Eosinophils/100 WBC Auto (Bl d)Ordered By: Roberto Rodriguez on 02-03-2025 Eosinophils/100 WBC (Bld) Automated eosinophil % . [facility] Erythrocyte distribution wid th Auto (RBC) [Ratio]Ordered By: Roberto Rodriguez on 02-03-2025 Erythrocyte distribution width (RBC) [Ratio] Erythrocyte distribution width [Ratio] by Automated count 11.9-15.3 [facility] Globulin Calc (S) [Mass/Vol] Ordered By: Roberto Rodriguez on 02-03-2025 Globulin (S) [Mass/Vol] Serum globulin measurement by calculation (mass/volume) [facility] Glucose [Mass/volume] in Ser um or PlasmaOrdered By: Roberto Rodriguez on 02-03-2025 Glucose [Mass/Vol] Glucose [Mass/volume ] in Serum or Plasma 70-100 [facility] Comment on above: ADA recommended refe rence rangeRandom Glucose Reference Range is dependent on time and content of last meal. Glucose of more than 200 mg/dL in a nonstressed, ambulatory subject supports the diagnosis of Diabetes Mellitus. Hematocrit Auto (Bld) [Volum e fraction]Ordered By: Roberto Rodriguez on 02-03-2025 Hematocrit (Bld) [Volume fraction] Hematocrit [Volume Fraction] of Blood by Automated count 34.0-46.4 [facility] Hemoglobin [Mass/volume] in BloodOrdered By: Roberto Rodriguez on 02-03-2025 Hemoglobin (Bld) [Mass/Vol] Hemoglobin [Mass/volume] in Blood 11.8-15.4 [facility] Leukocytes [#/volume] correc miguel for nucleated erythrocytes in Blood by Automated counOrdered By: Roberto Rodriguez on 02-03-2025 WBC corrected for nucl RBC Auto (Bld) [#/Vol] Leukocytes [#/volume] corrected for nucleated erythrocytes in Blood by Automated coun 3.8-11.6 [facility] Lymphocytes Auto (Bld) [#/Vo l]Ordered By: Roberto Rodriguez on 02-03-2025 Lymphocytes (Bld) [#/Vol] Lymphocytes [#/volume] in Blood by Automated count 1.00-4.8 [facility] Lymphocytes/100 WBC Auto (Bl d)Ordered By: Roberto Rodriguez on 02-03-2025 Lymphocytes/100 WBC (Bld) Lymphocytes/100 leukocytes in Blood by Automated count . [facility] MCH Auto (RBC) [Entitic mass ]Ordered By: Roberto Rodriguez on 02-03-2025 MCH (RBC) [Entitic mass] MCH [Entitic mass] by Automated count 24.7-34.3 [facility] MCHC Auto (RBC) [Mass/Vol]Or dered By: Roberto Rodriguez on 02-03-2025 MCHC (RBC) [Mass/Vol] MCHC [Mass/volume] by Automated count 32.0-35.0 [facility] MCV Auto (RBC) [Entitic vol] Ordered By: Roberto Rodriguez on 02-03-2025 MCV (RBC) [Entitic vol] MCV [Entitic vol ume] by Automated count 80-100 [facility] Monocytes Auto (Bld) [#/Vol] Ordered By: Roberto Rodriguez on 02-03-2025 Monocytes (Bld) [#/Vol] Automated blood monocyte count 0.0-0.8 [facility] Monocytes/100 WBC Auto (Bld) Ordered By: Roberto Rodriguez on 02-03-2025 Monocytes/100 WBC (Bld) Automated monocyte % . [facility] Neutrophils Auto (Bld) [#/Vo l]Ordered By: Roberto Rodriguez on 02-03-2025 Neutrophils (Bld) [#/Vol] Neutrophils [#/volume] in Blood by Automated count 1.8-7.7 [facility] Neutrophils/100 WBC Auto (Bl d)Ordered By: Roberto Rodriguez on 02-03-2025 Neutrophils/100 WBC (Bld) Automated neutrophil % . [facility] No Panel InformationOrdered By: Roberto Rodriguez on 02-03-2025 Estimated GFR (CKD-EPI) > 60.0 mL/Min [facility] Creatinine Clearance (Chem N/A [facility] Nucleated erythrocytes [Pres ence] in Blood by Automated countOrdered By: Roberto Rodriguez on 02-03-2025 Nucleated RBC Auto Ql (Bld) Nucleated erythrocytes [Presence] in Blood by Automated count 0-0.5 [facility] Platelet mean volume Auto (B ld) [Entitic vol]Ordered By: Roberto Rodriguez on 02-03-2025 Platelet mean volume (Bld) [Entitic vol] Platelet mean volume [Entitic volume] in Blood by Automated count 6.3-10.7 [facility] Platelets Auto (Bld) [#/Vol] Ordered By: Roberto Rodriguez on 02-03-2025 Platelets (Bld) [#/Vol] Platelets [#/vol ume] in Blood by Automated count 150-450 [facility] Potassium [Moles/volume] in Serum or PlasmaOrdered By: Roberto Rodriguez on 02-03-2025 Potassium [Moles/Vol] Potassium [Moles/volume] in Serum or Plasma 3.5-5.1 [facility] Protein [Mass/volume] in Ser um or PlasmaOrdered By: Roberto Rodriguez on 02-03-2025 Protein [Mass/Vol] Protein [Mass/volume ] in Serum or Plasma 6.4-8.9 [facility] RBC Auto (Bld) [#/Vol]Ordere d By: Roberto Rodriguez on 02-03-2025 RBC (Bld) [#/Vol] Erythrocytes [#/volume] in Blood by Automated count 3.60-5.00 [facility] Serum or plasma albumin/glob ulin mass ratioOrdered By: Roberto Rodriguez on 02-03-2025 Albumin/Globulin [Mass ratio] Serum or plasma albumin/globulin mass ratio [facility] Serum or plasma anion gap de terminationOrdered By: Roberto Rodriguez on 02-03-2025 Anion gap [Moles/Vol] Serum or plasma an ion gap determination 6.0-15.0 [facility] Sodium [Moles/volume] in Ser um or PlasmaOrdered By: Roberto Rodriguez on 02-03-2025 Sodium [Moles/Vol] Sodium [Moles/volume ] in Serum or Plasma 136-145 [facility] US abdomen limitedon 025 US abdomen limited [facility] [place] [address] Ultrasound Report Signed Patient: Nia Schofield MR#: [id number] : [id number] Acct:[id number] Age/Sex: 44 / F ADM Date: 02/03/25 Loc: Room: Type: [facility] Attending Dr: Roberto Rodriguez CHEF TEACHER Ordering Provider: Roberto Rodriguez APRN Date of [...] Walker Jr., D.OMackenzie02/03/2025 11:52 AM Dictation Location: [place] [address] Tech: Judy Barraza Transcribed By: ONOFRE 02/03/25 1152 Dictated By: Alvaro Walker Jr, DO 02/03/25 1151 Signed By: 02/03/25 1152 Normal [facility] Urea nitrogen [Mass/volume] in Serum or PlasmaOrdered By: Roberto Rodriguez on 02-03-2025 Urea nitrogen [Mass/Vol] Urea nitrogen [Mass/volume] in Serum or Plasma 06-20 [facility] WBC Auto (Bld) [#/Vol]Ordere d By: Roberto Rodriguez on 02-03-2025 WBC (Bld) [#/Vol] Leukocytes [#/volume ] in Blood by Automated count 3.8-11.6 [facility] Urine Cultureon 07-07-2024 Bacteria identified Cx Nom (U) ORGANISM: Escherichia coli (MDRO) (O:ESCCOLMDRO) [place] Count >100,000 Aerobic FCO Charge (NMIC56) --- [...] RESISTANT TO ALL B-LACTAM DRUGS. PERFORMED BY: [place] [address] PATHOLOGIST PRINCIPAL TECHNICAL WRITER DAWSON FAIR M.D. Normal [facility] Comment on above: Performed By: #### C UU #### [address] MR KNEE LEFT WO IV CONTRASTo [...] on 08-14-2023 Amphetamines Ql (U) Negative Negative [facility] Barbiturates [Presence] in U rine by Screen methodOrdered By: Juarez Griffiths on 08-14-2023 Barbiturates Screen Ql (U) Negative Negative [facility] Benzodiazepines Screen Ql (U )Ordered By: Juarez Griffiths on 08-14-2023 Benzodiazepines Ql (U) Negative Negative [facility] Benzoylecgonine [Presence] i n Urine by Screen methodOrdered By: Juarez Griffiths on 08-14-2023 Benzoylecgonine Screen Ql (U) Negative Negative [facility] Cannabinoids [Presence] in U rine by Screen methodOrdered By: Juarez Griffiths on 08-14-2023 Cannabinoids Screen Ql (U) Negative Negative [facility] Comment on above: These are unconfirme d results and should not be used for legal purposes. Drug Cut-Off Concentration: AMPH 1000 ng/mL BRISEIDA 200 ng/mL RBUEN 200 ng/mL COCM 300 ng/mL OP 300 ng/mL PCP 25 ng/mL THC 20 ng/mL Glucose Glucometer (BldC) [M ass/Vol]Ordered By: Juarez Griffiths on 08-14-2023 Glucose [Mass/Vol] 129 mg/dL [facility] Comment on above: Random Glucose Refer ence Range is dependent on time and content of last meal. Glucose of more than 200 mg/dL in a nonstressed, ambulatory subject supports the diagnosis of Diabetes Mellitus. HCG ( test) IA.rapi d Ql (U)Ordered By: Juarez Griffiths on 08-14-2023 HCG ( test) Ql (U) Negative [facility] No Panel InformationOrdered By: Juarez Griffiths on 08-14-2023 Bedside Glucose Comment Glu2: cleaned meter [facility] Opiates [Presence] in Urine by Screen methodOrdered By: Juarez Griffiths on 08-14-2023 Opiates Screen Ql (U) Negative Negative [facility] Phencyclidine Screen Ql (U)O rdered By: Juarez Grifftihs on 08-14-2023 Phencyclidine Ql (U) Negative Negative [facility] NM HEPATOBILIARY SCAN W EFon 01-05-2023 NM HEPATOBILIARY SCAN W EF HIDA SCAN WITH GALLBLADDER EJECTION FRACTION HISTORY: Abdominal Pain. COMPARISON: Ultrasound 12/05/2022. METHOD: Following IV injection of 4.9 mCi of [id number] c, anterior imaging of the abdomen was [...] by: SAHIL GARZA Date: 2023-01-05 14:25 Normal [facility] XR ABD FLAT_UPon 12-30-2022 XR ABD [...] by: INGRID YATES Date: 2022-12-30 08:55 Normal [facility] US SINGLE QUAD RT UPPERon US [...] by: INGRID YATES Date: 2022-12-05 12:32 Normal [facility] AMYLASEon 11-25-2022 Amylase [Catalytic activity/Vol] 50 U/L Normal 25-115 [facility] Comment on above: Performed By: #### C MP, PIA, LIPA #### [facility] [address] [place] [address] [address] Bri Light CBC AUTO DIFFon 11-25-2022 BASO # 0.0 103/ul Normal 0.0-0.1 [facility] Comment on above: Performed By: #### C MP PIA, LIPA #### [facility] [address] [place] [address] [address] Bri Light Basophils/100 WBC (Bld) 0.2 % Normal 0.2-2.0 [facility] Comment on above: Performed By: #### C MP PIA, LIPA #### [facility] [address] [place] [address] [address] Bri Light EO # 0.1 103/ul Normal 0.0-0.7 [facility] Comment on above: Performed By: #### C PIA BONE LIPA #### [facility] [address] [place] [address] Dr. Bri Light Eosinophils/100 WBC (Bld) 1.3 % Normal 0.9-7.0 [facility] Comment on above: Performed By: #### C PIA BONE LIPA #### [facility] [address] [place] [address] Dr. Bri Light Erythrocyte distribution width (RBC) [Ratio] 14.6 % Normal 11.0-15.0 [facility] Comment on above: Performed By: #### C PIA BONE LIPA #### [facility] [address] [place] [address] Dr. Bri Light Hematocrit (Bld) [Volume fraction] 39.4 % Normal 36.0-48.0 [facility] Comment on above: Performed By: #### C PIA BONE LIPA #### [facility] [address] [place] [address] Dr. Bri Light Hemoglobin (Bld) [Mass/Vol] 12.7 g/dL Normal 12.0-16.0 [facility] Comment on above: Performed By: #### C PIA BONE LIPA #### [facility] [address] [place] [address] Dr. Bri Light IG # 0.04 10e3/ul Critically high 0.00-0.03 [facility] Comment on above: Performed By: #### C PIA BONE LIPA #### [facility] [address] [place] [address] Dr. Bri Light IG % 0.4 % Normal 0.0-0.5 [facility] Comment on above: Performed By: #### C PIA BONE LIPA #### [facility] [address] [place] [address] Dr. Bri Light LYMPH # 1.3 103/ul Normal 1.2-3.8 [facility] Comment on above: Performed By: #### C PIA BONE LIPA #### [facility] [address] [place] [address] Dr. Bri Light Lymphocytes/100 WBC (Bld) 12.5 % Critically low 20.5-60.0 [facility] Comment on above: Performed By: #### C MP, PIA, LIPA #### [facility] [address] [place] [address] [address] Bri Light MANUAL DIFF REQ NO Normal [facility] Comment on above: Performed By: #### C MP, PIA, LIPA #### [facility] [address] [place] [address] Dr. Bri Light MCH (RBC) [Entitic mass] 26.2 pg Critically low 26.7-34.0 [facility] Comment on above: Performed By: #### C MP, PIA, LIPA #### [facility] [address] [place] [address] Dr. Bri Light MCHC (RBC) [Mass/Vol] 32.2 g/dL Normal 29.9-35.2 [facility] Comment on above: Performed By: #### C MP, PIA, LIPA #### [facility] [address] [place] [address] Dr. Bri Light MCV (RBC) [Entitic vol] 81.2 fL Normal 81.0-99.0 [facility] Comment on above: Performed By: #### C MP, PIA, LIPA #### [facility] [address] [place] [address] Dr. Bri Light MONO # 1.0 103/ul Critically high 0.3-0.8 [facility] Comment on above: Performed By: #### C MP, PIA, LIPA #### [facility] [address] [place] [address] Dr. Bri Light Monocytes/100 WBC (Bld) 9.2 % Normal 1.7-12.0 [facility] Comment on above: Performed By: #### C MP, PIA, LIPA #### [facility] [address] [place] [address] Dr. Bri Light NEUT # 7.9 103/ul Critically high 1.4-6.5 [facility] Comment on above: Performed By: #### C PIA BONE LIPA #### [facility] [address] [place] [address] Dr. Bri Light Neutrophils/100 WBC (Bld) 76.4 % Critically high 43.0-75.0 [facility] Comment on above: Performed By: #### C PIA BONE LIPA #### [facility] [address] [place] [address] Dr. Bri Light Platelet mean volume (Bld) [Entitic vol] 9.2 fL Critically low 9.5-13.5 [facility] Comment on above: Performed By: #### C PIA BONE LIPA #### [facility] [address] [place] [address] Dr. Bri Light PLT 370 103/ul Normal 150-450 [facility] Comment on above: Performed By: #### C PIA BONE LIPA #### [facility] [address] [place] [address] Dr. Bri Light RBC 4.85 106/ul Normal 4.20-5.40 [facility] Comment on above: Performed By: #### C PIA BONE LIPA #### [facility] [address] [place] [address] Dr. Bri Light WBC 10.4 103/ul Normal 4.0-11.0 [facility] Comment on above: Performed By: #### C PIA BONE LIPA #### [facility] [address] [place] [address] Dr. Bri Light Covid-19 PCR (CVDTB)on 10-29 SARS-CoV-2 (COVID-19) RNA CAMDEN+probe Ql (Unsp spec) Detected Abnormal NOT DETECTED [facility] Comment on above: Result Comment: This test is not yet approved or cleared by the [place] FDA. When there are no FDA-approved or cleared tests available, and other criteria are met, FDA can make tests available under an emergency access mechanism called an Emergency Use Authorization (EUA). The EUA for this test is supported by the [place] of Health and Human Service's declaration that [...] used). Performed By: #### C VDTBH #### [facility] [address] [place] [address] Dr. Bri Light INFLUENZA A AND B AGon 11-25 INFLUANEGH SEE BELOW Normal [facility] Comment on above: Result Comment: Nega tive for Flu A protein angiten. Infection due to Flu A cannot be ruled out. Flu A angiten in the sample may be below the detection limit of the test. Performed By: #### I NFLUAB #### [facility] [address] [place] [address] Dr. Bri Light INFLUBNEG SEE BELOW Normal [facility] Comment on above: Result Comment: Nega tive for Flu B protein antigen. Infection due to Flu B cannot be ruled out. Flu B antigen in the sample may be below the detection limit of the test. Performed By: #### I NFLUAB #### [facility] [address] [place] [address] Dr. Bri Light INFLUENZA A AG Negative Normal NEGATIVE SEE COMMENT [facility] Comment on above: Performed By: #### I NFLUAB #### [facility] [address] [place] [address] Dr. Bri Light INFLUENZA B AG Negative Normal NEGATIVE SEE COMMENT [facility] Comment on above: Performed By: #### I NFLUAB #### [facility] [address] [place] [address] Dr. Bri Light LIPASEon 11-25-2022 Lipase [Catalytic activity/Vol] 146.0 U/L Normal 73.0-393.0 [facility] Comment on above: Performed By: #### C MP, PIA, LIPA #### [facility] [address] [place] [address] Dr. Bri Light PROF 14(COMP METB)on 022 Albumin [Mass/Vol] 3.4 g/dL Normal 3.4-5.0 [facility] Comment on above: Performed By: #### C PIA BONE LIPA #### [facility] [address] [address] [address] Bri Light Albumin/Globulin [Mass ratio] 0.7 {ratio} Normal [facility] Comment on above: Performed By: #### C PIA BONE, LIPA #### [facility] [address] [address] [address] Bri Light ALP [Catalytic activity/Vol] 84 U/L Normal 46-116 [facility] Comment on above: Performed By: #### C PIA BONE LIPA #### [facility] [address] [address] [address] Bri Light ALT [Catalytic activity/Vol] 40 U/L Normal 14-59 [facility] Comment on above: Performed By: #### C PIA BONE LIPA #### [facility] [address] [address] [address] Bri Light Anion gap [Moles/Vol] 11.2 mmol/L Normal [facility] Comment on above: Performed By: #### C PIA BONE, LIPA #### [facility] [address] [address] [address] Bri Light AST [Catalytic activity/Vol] 23 U/L Normal 15-37 [facility] Comment on above: Performed By: #### C PAI BONE LIPA #### [facility] [address] [address] [address] Bri Light Bilirubin [Mass/Vol] 0.5 mg/dL Normal 0.2-1.0 [facility] Comment on above: Performed By: #### C PIA BONE, LIPA #### [facility] [address] [address] [address] Bri Light Calcium [Mass/Vol] 8.6 mg/dL Normal 8.5-10.1 [facility] Comment on above: Performed By: #### C PIA BONE, LIPA #### [facility] [address] [address] [address] Bri Light Chloride [Moles/Vol] 99 mmol/L Normal 98-107 [facility] Comment on above: Performed By: #### C MP, PIA, LIPA #### [facility] [address] [address] [address] Bri Light CO2 [Moles/Vol] 29.0 mmol/L Normal 21.0-32.0 [facility] Comment on above: Performed By: #### C MP, PIA, LIPA #### [facility] [address] [address] [address] Bri Light Creatinine [Mass/Vol] 0.77 mg/dL Normal 0.55-1.02 [facility] Comment on above: Performed By: #### C MP, PIA, LIPA #### [facility] [address] [place] [address] Dr. Bri Light EGFR-AF CO[place] RICAN >60 Normal >=60 [facility] Comment on above: Performed By: #### C MP, PIA, LIPA #### [facility] [address] [address] [address] Bri Light EGFR-NON AF [place] >60 Normal >=60 [facility] Comment on above: Performed By: #### C MP, PIA, LIPA #### [facility] [address] [address] [address] Bri Light Globulin (S) [Mass/Vol] 4.6 g/dL Normal [facility] Comment on above: Performed By: #### C MP, PIA, LIPA #### [facility] [address] [address] [address] Bri Light Glucose [Mass/Vol] 130 mg/dL Critically high 74-106 [facility] Comment on above: Performed By: #### C MP, PIA, LIPA #### [facility] [address] [address] [address] Bri Light Potassium [Moles/Vol] 3.2 mmol/L Critically low 3.5-5.1 [facility] Comment on above: Performed By: #### C MP PIA, LIPA #### [facility] [address] [place] [address] Dr. Bri Light Protein [Mass/Vol] 8.0 g/dL Normal 6.4-8.2 [facility] Comment on above: Performed By: #### C MP PIA, LIPA #### [facility] [address] [place] [address] Dr. Bri Light Sodium [Moles/Vol] 136 mmol/L Normal 136-145 [facility] Comment on above: Performed By: #### C MP PIA, LIPA #### [facility] [address] [place] [address] Dr. Bri Light Urea nitrogen [Mass/Vol] 11.0 mg/dL Normal 7.0-18.0 [facility] Comment on above: Performed By: #### C LIZANDRO PIA, LIPA #### [facility] [address] [place] [address] Dr. Bri Light Urea nitrogen/Creatinine [Mass ratio] 14.3 mg/mg Normal [facility] Comment on above: Performed By: #### C PIA BONE, LIPA #### [facility] [address] [place] [address] Dr. Bri Light CBC AUTO DIFFon 11-13-2022 BASO # 0.0 103/ul Normal 0.0-0.1 [facility] Comment on above: Performed By: #### C BC #### [facility] [address] [place] [address] Dr. Bri Light Basophils/100 WBC (Bld) 0.2 % Normal 0.2-2.0 [facility] Comment on above: Performed By: #### C BC #### [facility] [address] [place] [address] Dr. Bri Light EO # 0.2 103/ul Normal 0.0-0.7 [facility] Comment on above: Performed By: #### C BC #### [facility] [address] [place] [address] Dr. Bri Light Eosinophils/100 WBC (Bld) 2.0 % Normal 0.9-7.0 [facility] Comment on above: Performed By: #### C BC #### [facility] [address] [place] [address] Dr. Bri Light Erythrocyte distribution width (RBC) [Ratio] 14.7 % Normal 11.0-15.0 [facility] Comment on above: Performed By: #### C BC #### [facility] [address] [place] [address] Dr. Bri Light Hematocrit (Bld) [Volume fraction] 39.9 % Normal 36.0-48.0 [facility] Comment on above: Performed By: #### C BC #### [facility] [address] [place] [address] Dr. Bri Light Hemoglobin (Bld) [Mass/Vol] 13.1 g/dL Normal 12.0-16.0 [facility] Comment on above: Performed By: #### C BC #### [facility] [address] [place] [address] Dr. Bri Light IG # 0.03 10e3/ul Normal 0.00-0.03 [facility] Comment on above: Performed By: #### C BC #### [facility] [address] [place] [address] Dr. Bri Light IG % 0.3 % Normal 0.0-0.5 [facility] Comment on above: Performed By: #### C BC #### [facility] [address] [place] [address] Dr. Bri Light LYMPH # 2.2 103/ul Normal 1.2-3.8 [facility] Comment on above: Performed By: #### C BC #### [facility] [address] [place] [address] Dr. Bri Light Lymphocytes/100 WBC (Bld) 21.8 % Normal 20.5-60.0 [facility] Comment on above: Performed By: #### C BC #### [facility] [address] [place] [address] Dr. Bri Light MANUAL DIFF REQ NO Normal [facility] Comment on above: Performed By: #### C BC #### [facility] [address] [place] [address] Dr. Bri Light MCH (RBC) [Entitic mass] 26.7 pg Normal 26.7-34.0 [facility] Comment on above: Performed By: #### C BC #### [facility] [address] [place] [address] Dr. Bri Light MCHC (RBC) [Mass/Vol] 32.8 g/dL Normal 29.9-35.2 [facility] Comment on above: Performed By: #### C BC #### [facility] [address] [place] [address] Dr. Bri Light MCV (RBC) [Entitic vol] 81.3 fL Normal 81.0-99.0 [facility] Comment on above: Performed By: #### C BC #### [facility] [address] [place] [address] Dr. Bri Light MONO # 1.1 103/ul Critically high 0.3-0.8 [facility] Comment on above: Performed By: #### C BC #### [facility] [address] [place] [address] Dr. Bri Light Monocytes/100 WBC (Bld) 10.8 % Normal 1.7-12.0 [facility] Comment on above: Performed By: #### C BC #### [facility] [address] [place] [address] Dr. Bri Light NEUT # 6.5 103/ul Normal 1.4-6.5 [facility] Comment on above: Performed By: #### C BC #### [facility] [address] [place] [address] Dr. Bri Light Neutrophils/100 WBC (Bld) 64.9 % Normal 43.0-75.0 [facility] Comment on above: Performed By: #### C BC #### [facility] [address] [place] [address] Dr. Bri Light Platelet mean volume (Bld) [Entitic vol] 9.3 fL Critically low 9.5-13.5 [facility] Comment on above: Performed By: #### C BC #### [facility] [address] [place] [address] Dr. Bri Light PLT 397 103/ul Normal 150-450 [facility] Comment on above: Performed By: #### C BC #### [facility] [address] [place] [address] Dr. Bri Light RBC 4.91 106/ul Normal 4.20-5.40 [facility] Comment on above: Performed By: #### C BC #### [facility] [address] [place] [address] Dr. Bri Light WBC 10.0 103/ul Normal 4.0-11.0 [facility] Comment on above: Performed By: #### C BC #### [facility] [address] [place] [address] Dr. Bri Light [facility] SARS-CoV-2 (COVID-19) RNA CAMDEN+probe Ql (Unsp spec) Not detected Normal NOT DETECTED [facility] Comment on above: Result Comment: This test is not yet approved or cleared by the [place] FDA. When there are no FDA-approved or cleared tests available, and other criteria are met, FDA can make tests available under an emergency access mechanism called an Emergency Use Authorization (EUA). The EUA for this test is supported by the [place] of Health and Human Service's (HHS's) declaration [...] By: #### C PIA BONE LIPA #### [facility] [address] [address] [address] Bri CARNEY URINE PROFILEon 2 Bilirubin Ql (U) Negative Normal NEGATIVE [facility] Comment on above: Performed By: #### C MP, PIA, LIPA #### [facility] [address] [address] [address] Bri Light Clarity (U) CLEAR Normal CLEAR [facility] Comment on above: Performed By: #### C MP, PIA, LIPA #### [facility] [address] [address] [address] Bri Light Color (U) YELLOW Normal YELLOW [facility] Comment on above: Performed By: #### C MP, PIA, LIPA #### [facility] [address] [place] [address] Dr. Bri WAGNER A micrscopic examination will be performed if indicated. Normal [facility] Comment on above: Performed By: #### C MP, PIA, LIPA #### [facility] [address] [address] [address] Bri Light Glucose Ql (U) Negative Normal NEGATIVE [facility] Comment on above: Performed By: #### C MP, PIA, LIPA #### [facility] [address] [address] [address] Bri Light Hemoglobin Ql (U) LARGE Abnormal NEGATIVE [facility] Comment on above: Performed By: #### C MP, PIA, LIPA #### [facility] [address] [address] [address] Bri Light Ketones Ql (U) Negative Normal NEGATIVE [facility] Comment on above: Performed By: #### C MP, PIA, LIPA #### [facility] [address] [place] [address] Dr. Bri Light LEUKOCYTES Negative Normal NEGATIVE [facility] Comment on above: Performed By: #### C MP, PIA, LIPA #### [facility] [address] [address] [address] Bri Light Nitrite Ql (U) Negative Normal NEGATIVE [facility] Comment on above: Performed By: #### C MP, PIA, LIPA #### [facility] [address] [address] [address] Bri Light pH (U) 5.5 [pH] Normal 5-9 [facility] Comment on above: Performed By: #### C MP, PIA, LIPA #### [facility] [address] [place] [address] Dr. Bri Light SPEC GRAVITY 1.025 Normal 1.005-<=1.[address] [place] [address] Comment on above: Performed By: #### C MP, PIA, LIPA #### [facility] [address] [place] [address] Dr. Bri Light UA PROTEIN TRACE Normal NEGATIVE/ TRACE [facility] Comment on above: Performed By: #### C MP, PIA, LIPA #### [facility] [address] [place] [address] Dr. Bri Light UR MICRO IND INDICATED Normal [facility] Comment on above: Performed By: #### C MP, PIA, LIPA #### [facility] [address] [place] [address] Dr. Bri Light Urobilinogen Qn (U) 0.2 {Bong'U}/dL Normal 0.2 - 1. 0 [facility] Comment on above: Performed By: #### C LIZANDRO, PIA, LIPA #### [facility] [address] [place] [address] Dr. Bri Light INFLUENZA A AND B AGon 11-13 INFLUANEGH SEE BELOW Normal [facility] Comment on above: Result Comment: Nega tive for Flu A protein angiten. Infection due to Flu A cannot be ruled out. Flu A angiten in the sample may be below the detection limit of the test. Performed By: #### C MP, PIA, LIPA #### [facility] [address] [place] [address] Dr. Bri Light INFLUBNEGH SEE BELOW Normal [facility] Comment on above: Result Comment: Nega tive for Flu B protein antigen. Infection due to Flu B cannot be ruled out. Flu B antigen in the sample may be below the detection limit of the test. Performed By: #### C LIZANDRO PIA, LIPA #### [facility] [address] [place] [address] Dr. Bri Light INFLUENZA A AG Negative Normal NEGATIVE SEE COMMENT [facility] Comment on above: Performed By: #### C MP, PIA, LIPA #### [facility] [address] [place] [address] Dr. Bri Light INFLUENZA B AG Negative Normal NEGATIVE SEE COMMENT [facility] Comment on above: Performed By: #### C LIZANDRO PIA, LIPA #### [facility] [address] [place] [address] Dr. Bri Light INTERNAL CONTROLS Within Normal Limits Normal Wi thin Normal Limits [facility] Comment on above: Performed By: #### C LIZANDRO PIA, LIPA #### [facility] [address] [place] [address] Dr. Bri Light LIPASEon 11-13-2022 Lipase [Catalytic activity/Vol] 83.0 U/L Normal 73.0-393.0 [facility] Comment on above: Performed By: #### C PIA BONE, LIPA #### [facility] [address] [place] [address] Dr. Bri Light URon 11-13-2022 , QUAL Negative Normal NEGATIVE [facility] Comment on above: Performed By: #### C LIZANDRO PIA, LIPA #### [facility] [address] [place] [address] Dr. Bri Light PROF 14(COMP METB)on 022 Albumin [Mass/Vol] 3.2 g/dL Critically low 3.4-5.0 [facility] Comment on above: Performed By: #### C LIZANDRO PIA, LIPA #### [facility] [address] [place] [address] Dr. Bri Light Albumin/Globulin [Mass ratio] 0.7 {ratio} Normal [facility] Comment on above: Performed By: #### C LIZANDRO PIA, LIPA #### [facility] [address] [address] [address] Bri Light ALP [Catalytic activity/Vol] 78 U/L Normal 46-116 [facility] Comment on above: Performed By: #### C PIA BONE LIPA #### [facility] [address] [place] [address] Dr. Bri Light ALT [Catalytic activity/Vol] 33 U/L Normal 14-59 [facility] Comment on above: Performed By: #### C PIA BONE, LIPA #### [facility] [address] [place] [address] Dr. Bri Light Anion gap [Moles/Vol] 8.5 mmol/L Normal [facility] Comment on above: Performed By: #### C PIA BONE, LIPA #### [facility] [address] [place] [address] Dr. Bri Light AST [Catalytic activity/Vol] 16 U/L Normal 15-37 [facility] Comment on above: Performed By: #### C PIA BONE, LIPA #### [facility] [address] [place] [address] Dr. Bri Light Bilirubin [Mass/Vol] 0.6 mg/dL Normal 0.2-1.0 [facility] Comment on above: Performed By: #### C LIZANDRO PIA, LIPA #### [facility] [address] [place] [address] Dr. Bri Light Calcium [Mass/Vol] 8.1 mg/dL Critically low 8.5-10.1 [facility] Comment on above: Performed By: #### C PIA BONE, LIPA #### [facility] [address] [place] [address] Dr. Bri Light Chloride [Moles/Vol] 102 mmol/L Normal 98-107 [facility] Comment on above: Performed By: #### C PIA BONE, LIPA #### [facility] [address] [place] [address] Dr. Bri Light CO2 [Moles/Vol] 26.5 mmol/L Normal 21.0-32.0 [facility] Comment on above: Performed By: #### C MP, PIA, LIPA #### [facility] [address] [address] [address] Bri Light Creatinine [Mass/Vol] 0.68 mg/dL Normal 0.55-1.02 [facility] Comment on above: Performed By: #### C MP, PIA, LIPA #### [facility] [address] [address] [address] Bri Light EGFR-AF [place] >60 Normal >=60 [facility] Comment on above: Performed By: #### C MP, PIA, LIPA #### [facility] [address] [address] [address] Bri Light EGFR-NON AF [place] >60 Normal >=60 [facility] Comment on above: Performed By: #### C MP, PIA, LIPA #### [facility] [address] [address] [address] Bri Light Globulin (S) [Mass/Vol] 4.7 g/dL Normal [facility] Comment on above: Performed By: #### C MP, PIA, LIPA #### [facility] [address] [address] [address] Bri Light Glucose [Mass/Vol] 113 mg/dL Critically high 74-106 [facility] Comment on above: Performed By: #### C MP, PIA, LIPA #### [facility] [address] [address] [address] Bri Light Potassium [Moles/Vol] 3.0 mmol/L Critically low 3.5-5.1 [facility] Comment on above: Performed By: #### C MP, PIA, LIPA #### [facility] [address] [address] [address] Bri Light Protein [Mass/Vol] 7.9 g/dL Normal 6.4-8.2 [facility] Comment on above: Performed By: #### C MP, PIA, LIPA #### [facility] [address] [address] [address] Bri Light Sodium [Moles/Vol] 136 mmol/L Normal 136-145 [facility] Comment on above: Performed By: #### C PIA BONE, LIPA #### [facility] [address] [place] [address] Dr. Bri Light Urea nitrogen [Mass/Vol] 11.0 mg/dL Normal 7.0-18.0 [facility] Comment on above: Performed By: #### C PIA BONE, LIPA #### [facility] [address] [place] [address] Dr. Bri Light Urea nitrogen/Creatinine [Mass ratio] 16.2 mg/mg Normal [facility] Comment on above: Performed By: #### C PIA BONE, LIPA #### [facility] [address] [place] [address] Dr. Bri Light URINE MICROSCOPIC ONLYon BACTERIA TRACE Abnormal NONE SEEN [facility] Comment on above: Performed By: #### C PIA BONE, LIPA #### [facility] [address] [place] [address] Dr. Bri Light Bacteria identified Cx Nom (U) NOT INDICATED Normal [facility] Comment on above: Performed By: #### C PIA BONE, LIPA #### [facility] [address] [place] [address] Dr. Bri Light CAST NONE SEEN Normal NONE SEEN [facility] Comment on above: Performed By: #### C PIA BONE, LIPA #### [facility] [address] [place] [address] Dr. Bri Light Crystals LM Nom (Urine sed) NONE SEEN Normal NONE SEEN [facility] Comment on above: Performed By: #### C LIZANDRO PIA, LIPA #### [facility] [address] [place] [address] Dr. Bri Light Epithelial cells LM Ql (Urine sed) RARE Normal NONE SEEN /RARE [facility] Comment on above: Performed By: #### C LIZANDRO PIA, LIPA #### [facility] [address] [place] [address] Dr. Bri Light MUCOUS NONE SEEN Normal NONE SEEN [facility] Comment on above: Performed By: #### C MP, PIA, LIPA #### [facility] [address] [place] [address] Dr. Bri Light RBC 0-2 Normal 0-2 [facility] Comment on above: Performed By: #### C MP, PIA, LIPA #### [facility] [address] [place] [address] Dr. Bri Light WBC 0-2 Abnormal NONE SEEN [facility] Comment on above: Performed By: #### C MP, PIA, LIPA #### [facility] [address] [place] [address] Dr. Bri Light AMYLASEon 09-02-2022 Amylase [Catalytic activity/Vol] 36 U/L Normal 25-115 [facility] Comment on above: Performed By: #### C MP, PIA, LIPA #### [facility] [address] [place] [address] Dr. Bri Light CBC AUTO DIFFon 09-02-2022 BASO # 0.0 103/ul Normal 0.0-0.1 [facility] Comment on above: Performed By: #### C MP, PIA, LIPA #### [facility] [address] [place] [address] Dr. Bri Light Basophils/100 WBC (Bld) 0.3 % Normal 0.2-2.0 [facility] Comment on above: Performed By: #### C MP, PIA, LIPA #### [facility] [address] [place] [address] Dr. Bri Light EO # 0.3 103/ul Normal 0.0-0.7 [facility] Comment on above: Performed By: #### C MP, PIA, LIPA #### [facility] [address] [place] [address] Dr. Bri Light Eosinophils/100 WBC (Bld) 2.1 % Normal 0.9-7.0 [facility] Comment on above: Performed By: #### C MP, PIA, LIPA #### [facility] [address] [place] [address] Dr. Bri Light Erythrocyte distribution width (RBC) [Ratio] 14.6 % Normal 11.0-15.0 [facility] Comment on above: Performed By: #### C PIA BONE LIPA #### [facility] [address] [place] [address] Dr. Bri Light Hematocrit (Bld) [Volume fraction] 43.5 % Normal 36.0-48.0 [facility] Comment on above: Performed By: #### C PIA BONE LIPA #### [facility] [address] [place] [address] Dr. Bri Light Hemoglobin (Bld) [Mass/Vol] 13.7 g/dL Normal 12.0-16.0 [facility] Comment on above: Performed By: #### C PIA BONE LIPA #### [facility] [address] [place] [address] Dr. Bri Light IG # 0.08 10e3/ul Critically high 0.00-0.[address] [facility] Comment on above: Performed By: #### C PIA BONE LIPA #### [facility] [address] [place] [address] Dr. Bri Light IG % 0.5 % Normal 0.0-0.5 [facility] Comment on above: Performed By: #### C PIA BONE LIPA #### [facility] [address] [place] [address] Dr. Bri Light LYMPH # 2.9 103/ul Normal 1.2-3.8 [facility] Comment on above: Performed By: #### C PIA BONE LIPA #### [facility] [address] [place] [address] Dr. Bri Light Lymphocytes/100 WBC (Bld) 20.1 % Critically low 20.5-60.0 [facility] Comment on above: Performed By: #### C PIA BONE LIPA #### [facility] [address] [place] [address] Dr. Bri Light MANUAL DIFF REQ NO Normal [facility] Comment on above: Performed By: #### C PIA BONE LIPA #### [facility] [address] [place] [address] Dr. Bri Light MCH (RBC) [Entitic mass] 26.3 pg Critically low 26.7-34.0 [facility] Comment on above: Performed By: #### C MP, PIA, LIPA #### [facility] [address] [place] [address] Dr. Bri Light MCHC (RBC) [Mass/Vol] 31.5 g/dL Normal 29.9-35.2 [facility] Comment on above: Performed By: #### C MP, PIA, LIPA #### [facility] [address] [place] [address] Dr. Bri Light MCV (RBC) [Entitic vol] 83.5 fL Normal 81.0-99.0 [facility] Comment on above: Performed By: #### C MP, PIA, LIPA #### [facility] [address] [place] [address] Dr. Bri Light MONO # 1.1 103/ul Critically high 0.3-0.8 [facility] Comment on above: Performed By: #### C MP, PIA, LIPA #### [facility] [address] [place] [address] Dr. Bri Light Monocytes/100 WBC (Bld) 7.5 % Normal 1.7-12.0 [facility] Comment on above: Performed By: #### C MP, PIA, LIPA #### [facility] [address] [place] [address] Dr. Bri Light NEUT # 10.2 103/ul Critically high 1.4-6.5 [facility] Comment on above: Performed By: #### C MP, PIA, LIPA #### [facility] [address] [place] [address] Dr. Bri Light Neutrophils/100 WBC (Bld) 69.5 % Normal 43.0-75.0 [facility] Comment on above: Performed By: #### C MP, PIA, LIPA #### [facility] [address] [place] [address] Dr. Bri Light Platelet mean volume (Bld) [Entitic vol] 9.6 fL Normal 9.5-13.5 [facility] Comment on above: Performed By: #### C PIA BONE LIPA #### [facility] [address] [place] [address] Dr. Bri Light PLT 426 103/ul Normal 150-450 [facility] Comment on above: Performed By: #### C PIA BONE LIPA #### [facility] [address] [address] [address] Bri Light RBC 5.21 106/ul Normal 4.20-5.40 [facility] Comment on above: Performed By: #### C PIA BONE LIPA #### [facility] [address] [place] [address] Dr. Bri Light WBC 14.6 103/ul Critically high 4.0-11.0 [facility] Comment on above: Performed By: #### C PIA BONE LIPA #### [facility] [address] [place] [address] Dr. Bri Light ER URINE PROFILEon 2 Bilirubin Ql (U) Negative Normal NEGATIVE [facility] Comment on above: Performed By: #### U MICRO, ERUR #### [facility] [address] [place] [address] Dr. Bri Light Clarity (U) CLEAR Normal CLEAR [facility] Comment on above: Performed By: #### U MICRO, ERUR #### [facility] [address] [place] [address] Dr. Bri Light Color (U) LT. YELLOW Normal YELLOW [facility] Comment on above: Performed By: #### U MICRO, ERUR #### [facility] [address] [place] [address] Dr. Bri WAGNER A micrscopic examination will be performed if indicated. Normal [facility] Comment on above: Performed By: #### U MICRO, ERUR #### [facility] [address] [place] [address] Dr. Bri Light Glucose Ql (U) Negative Normal NEGATIVE [facility] Comment on above: Performed By: #### U MICRO, ERUR #### [facility] [address] [address] [address] Bri Light Hemoglobin Ql (U) LARGE Abnormal NEGATIVE [facility] Comment on above: Performed By: #### U MICRO, ERUR #### [facility] [address] [place] [address] Dr. Bri Light Ketones Ql (U) Negative Normal NEGATIVE [facility] Comment on above: Performed By: #### U MICRO, ERUR #### [facility] [address] [address] [address] Bri Light LEUKOCYTES Negative Normal NEGATIVE [facility] Comment on above: Performed By: #### U MICRO, ERUR #### [facility] [address] [place] [address] Dr. Bri Light Nitrite Ql (U) Negative Normal NEGATIVE [facility] Comment on above: Performed By: #### U MICRO, ERUR #### [facility] [address] [place] [address] Dr. Bri Light pH (U) 6.0 [pH] Normal 5-9 [facility] Comment on above: Performed By: #### U MICRO, ERUR #### [facility] [address] [place] [address] Dr. Bri Light SPEC GRAVITY 1.025 Normal 1.005-<=1.02 5 [facility] Comment on above: Performed By: #### U MICRO, ERUR #### [facility] [address] [address] [address] Bri Light UA PROTEIN Negative Normal NEGATIVE/ TRACE [facility] Comment on above: Performed By: #### U MICRO, ERUR #### [facility] [address] [place] [address] Dr. Bri Light UR MICRO IND INDICATED Normal [facility] Comment on above: Performed By: #### U MICRO, ERUR #### [facility] [address] [place] [address] Dr. Bri Light Urobilinogen Qn (U) 0.2 {Bong'U}/dL Normal 0.2 - 1. 0 [facility] Comment on above: Performed By: #### U MICRO, ERUR #### [facility] [address] [place] [address] Dr. Bri Light LACTATE/LACTIC ACIDon 2021 Lactate [Moles/Vol] 1.0 mmol/L Normal 0.4-1.9 [facility] Comment on above: Performed By: #### L ACT #### [facility] [address] [place] [address] Dr. Bri Light LIPASEon 09-02-2022 Lipase [Catalytic activity/Vol] 101.0 U/L Normal 73.0-393.0 [facility] Comment on above: Performed By: #### C MP PIA, LIPA #### [facility] [address] [place] [address] Dr. Bri Light POINT OF CARE GLUCOSEon Glucose [Mass/Vol] 101 mg/dL Normal 74-106 [facility] Comment on above: Performed By: #### P OCGLUC #### [facility] [address] [place] [address] Dr. Bri Light Glucose [Mass/Vol] 127 mg/dL Critically high 74-106 [facility] Comment on above: Performed By: #### C MP PIA, LIPA #### [facility] [address] [place] [address] Dr. Bri Light PROF 14(COMP METB)on 022 Albumin [Mass/Vol] 3.7 g/dL Normal 3.4-5.0 [facility] Comment on above: Performed By: #### C MP PIA, LIPA #### [facility] [address] [place] [address] Dr. Bri Light Albumin/Globulin [Mass ratio] 0.7 {ratio} Normal [facility] Comment on above: Performed By: #### C MP PIA, LIPA #### [facility] [address] [place] [address] Dr. Bri Light ALP [Catalytic activity/Vol] 97 U/L Normal 46-116 [facility] Comment on above: Performed By: #### C LIZANDRO PIA, LIPA #### [facility] [address] [place] [address] Dr. Bri Light ALT [Catalytic activity/Vol] 38 U/L Normal 14-59 [facility] Comment on above: Performed By: #### C MP PIA, LIPA #### [facility] [address] [place] [address] Dr. Bri Light Anion gap [Moles/Vol] 10.4 mmol/L Normal [facility] Comment on above: Performed By: #### C LIZANDRO PIA, LIPA #### [facility] [address] [place] [address] Dr. Bri Light AST [Catalytic activity/Vol] 17 U/L Normal 15-37 [facility] Comment on above: Performed By: #### C LIZANDRO PIA, LIPA #### [facility] [address] [place] [address] Dr. Bri Light Bilirubin [Mass/Vol] 0.3 mg/dL Normal 0.2-1.0 [facility] Comment on above: Performed By: #### C LIZANDRO PIA, LIPA #### [facility] [address] [place] [address] Dr. Bri Light Calcium [Mass/Vol] 8.9 mg/dL Normal 8.5-10.1 [facility] Comment on above: Performed By: #### C MP PIA, LIPA #### [facility] [address] [place] [address] Dr. Bri Light Chloride [Moles/Vol] 100 mmol/L Normal 98-107 [facility] Comment on above: Performed By: #### C MP PIA, LIPA #### [facility] [address] [place] [address] Dr. Bri Light CO2 [Moles/Vol] 28.9 mmol/L Normal 21.0-32.0 [facility] Comment on above: Performed By: #### C LIZANDRO PIA, LIPA #### [facility] [address] [address] [address] Bri Light Creatinine [Mass/Vol] 0.79 mg/dL Normal 0.55-1.02 [facility] Comment on above: Performed By: #### C PIA BONE LIPA #### [facility] [address] [address] [address] Bri Light EGFR-AF [place] >60 Normal >=60 [facility] Comment on above: Performed By: #### C PIA BONE LIPA #### [facility] [address] [address] [address] Bri Light EGFR-NON AF [place] >60 Normal >=60 [facility] Comment on above: Performed By: #### C PIA BONE LIPA #### [facility] [address] [place] [address] Dr. Bri Light Globulin (S) [Mass/Vol] 5.0 g/dL Normal [facility] Comment on above: Performed By: #### C PIA BONE LIPA #### [facility] [address] [address] [address] Bri Light Glucose [Mass/Vol] 115 mg/dL Critically high 74-106 [facility] Comment on above: Performed By: #### C PIA BONE LIPA #### [facility] [address] [address] [address] Bri Light Potassium [Moles/Vol] 3.3 mmol/L Critically low 3.5-5.1 [facility] Comment on above: Performed By: #### C PIA BONE, LIPA #### [facility] [address] [address] [address] Bri Light Protein [Mass/Vol] 8.7 g/dL Critically high 6.4-8.2 [facility] Comment on above: Performed By: #### C PIA BONE, LIPA #### [facility] [address] [address] [address] Bri Light Sodium [Moles/Vol] 136 mmol/L Normal 136-145 [facility] Comment on above: Performed By: #### C LIZANDRO PIA, LIPA #### [facility] [address] [address] [address] Bri Light Urea nitrogen [Mass/Vol] 13.0 mg/dL Normal 7.0-18.0 [facility] Comment on above: Performed By: #### C MP, PIA, LIPA #### [facility] [address] [address] [address] Bri Light Urea nitrogen/Creatinine [Mass ratio] 16.5 mg/mg Normal [facility] Comment on above: Performed By: #### C PIA BONE, LIPA #### [facility] [address] [address] [address] Bri Light URINE MICROSCOPIC ONLYon BACTERIA TRACE Abnormal NONE SEEN [facility] Comment on above: Performed By: #### U MICRO, ERUR #### [facility] [address] [place] [address] Dr. Bri Light Bacteria identified Cx Nom (U) NOT INDICATED Normal [facility] Comment on above: Performed By: #### U MICRO, ERUR #### [facility] [address] [address] [address] Bri Light CAST NONE SEEN Normal NONE SEEN [facility] Comment on above: Performed By: #### U MICRO, ERUR #### [facility] [address] [address] [address] Bri Light Crystals LM Nom (Urine sed) NONE SEEN Normal NONE SEEN [facility] Comment on above: Performed By: #### U MICRO, ERUR #### [facility] [address] [place] [address] Dr. Bri Light Epithelial cells LM Ql (Urine sed) RARE Normal NONE SEEN /RARE [facility] Comment on above: Performed By: #### U MICRO, ERUR #### [facility] [address] [place] [address] Dr. Bri Light MUCOUS NONE SEEN Normal NONE SEEN [facility] Comment on above: Performed By: #### U MICRO, ERUR #### [facility] [address] [place] [address] Dr. Bri Light RBC 2-5 Abnormal 0-2 [facility] Comment on above: Performed By: #### U MICRO, ERUR #### [facility] [address] [place] [address] Dr. Bri Light WBC 0-2 Abnormal NONE SEEN [facility] Comment on above: Performed By: #### U MICRO, ERUR #### [facility] [address] [place] [address] Dr. Bri Light XR CHEST 2 Von [...] DEANDRA MONTANO Date: 2022-09-01 23:16 Normal [facility] CBC AUTO DIFFon 08-22-2022 BASO # 0.1 103/ul Normal 0.0-0.1 [facility] Comment on above: Performed By: #### C MP PIA, LIPA #### [facility] [address] [place] [address] Dr. Bri Light Basophils/100 WBC (Bld) 0.4 % Normal 0.2-2.0 [facility] Comment on above: Performed By: #### C MP PIA, LIPA #### [facility] [address] [place] [address] Dr. Bri Light EO # 0.2 103/ul Normal 0.0-0.7 [facility] Comment on above: Performed By: #### C MP PIA, LIPA #### [facility] [address] [place] [address] Dr. Bri Light Eosinophils/100 WBC (Bld) 1.5 % Normal 0.9-7.0 [facility] Comment on above: Performed By: #### C MP PIA, LIPA #### [facility] [address] [place] [address] Dr. Bri Light Erythrocyte distribution width (RBC) [Ratio] 14.6 % Normal 11.0-15.0 [facility] Comment on above: Performed By: #### C PIA BONE LIPA #### [facility] [address] [place] [address] Dr. Bri Light Hematocrit (Bld) [Volume fraction] 40.3 % Normal 36.0-48.0 [facility] Comment on above: Performed By: #### C PIA BONE LIPA #### [facility] [address] [place] [address] Dr. Bri Light Hemoglobin (Bld) [Mass/Vol] 12.7 g/dL Normal 12.0-16.0 [facility] Comment on above: Performed By: #### C PIA BONE LIPA #### [facility] [address] [place] [address] Dr. Bri Light IG # 0.04 10e3/ul Critically high 0.00-0.[address] [facility] Comment on above: Performed By: #### C PIA BONE LIPA #### [facility] [address] [place] [address] Dr. Bri Light IG % 0.3 % Normal 0.0-0.5 [facility] Comment on above: Performed By: #### C PIA BONE LIPA #### [facility] [address] [place] [address] Dr. Bri Light LYMPH # 3.9 103/ul Critically high 1.2-3.8 [facility] Comment on above: Performed By: #### C PIA BONE LIPA #### [facility] [address] [place] [address] Dr. Bri Light Lymphocytes/100 WBC (Bld) 29.4 % Normal 20.5-60.0 [facility] Comment on above: Performed By: #### C PIA BONE, LIPA #### [facility] [address] [place] [address] Dr. Bri Light MANUAL DIFF REQ NO Normal [facility] Comment on above: Performed By: #### C PIA BONE LIPA #### [facility] [address] [place] [address] Dr. Bri Light MCH (RBC) [Entitic mass] 26.4 pg Critically low 26.7-34.0 [facility] Comment on above: Performed By: #### C MP, PIA, LIPA #### [facility] [address] [place] [address] Dr. Bri Light MCHC (RBC) [Mass/Vol] 31.5 g/dL Normal 29.9-35.2 [facility] Comment on above: Performed By: #### C MP PIA, LIPA #### [facility] [address] [place] [address] Dr. Bri Light MCV (RBC) [Entitic vol] 83.8 fL Normal 81.0-99.0 [facility] Comment on above: Performed By: #### C LIZANDRO PIA, LIPA #### [facility] [address] [place] [address] Dr. Bri Light MONO # 1.1 103/ul Critically high 0.3-0.8 [facility] Comment on above: Performed By: #### C LIZANDRO PIA, LIPA #### [facility] [address] [place] [address] Dr. Bri Light Monocytes/100 WBC (Bld) 8.5 % Normal 1.7-12.0 [facility] Comment on above: Performed By: #### C LIZANDRO PIA, LIPA #### [facility] [address] [place] [address] Dr. Bri Light NEUT # 8.0 103/ul Critically high 1.4-6.5 [facility] Comment on above: Performed By: #### C MP PIA, LIPA #### [facility] [address] [place] [address] Dr. Bri Light Neutrophils/100 WBC (Bld) 59.9 % Normal 43.0-75.0 [facility] Comment on above: Performed By: #### C MP PIA, LIPA #### [facility] [address] [place] [address] Dr. Bri Light Platelet mean volume (Bld) [Entitic vol] 9.5 fL Normal 9.5-13.5 [facility] Comment on above: Performed By: #### C PIA BONE, LIPA #### [facility] [address] [address] [address] Bri Light PLT 442 103/ul Normal 150-450 [facility] Comment on above: Performed By: #### C LIZANDRO PIA, LIPA #### [facility] [address] [address] [address] Bri Light RBC 4.81 106/ul Normal 4.20-5.40 [facility] Comment on above: Performed By: #### C PIA BONE, LIPA #### [facility] [address] [address] [address] Bri Light WBC 13.3 103/ul Critically high 4.0-11.0 [facility] Comment on above: Performed By: #### C PIA BONE, LIPA #### [facility] [address] [address] [address] Bri Light GLYCOHEMOGLOBIN A1Con 2021 ADA RECOMMENDATION SEE BELOW Normal [facility] Comment on above: Result Comment: ADA RECOMMENDED LIMIT 4.0 - 6.0 ADA THERAPEUTIC TARGET < 7.0 ACTION SUGGESTED > 7.0 Performed By: #### C PIA BONE, LIPA #### [facility] [address] [address] [address] Bri Light Glucose [Mass/Vol] 171 mg/dL Normal [facility] Comment on above: Performed By: #### C PIA BONE, LIPA #### [facility] [address] [address] [address] Bri Light HbA1c (Bld) [Mass fraction] 7.6 % Critically high 4.5-6.2 [facility] Comment on above: Performed By: #### C PIA BONE, LIPA #### [facility] [address] [address] [address] Bri Light LIPID PROFILEon 08-22-2022 CHOL-HDL RATIO NORM SEE BELOW Normal [facility] Comment on above: Result Comment: 3.3 - 4.4 LOW RISK 4.4 - 7.1 AVERAGE RISK 7.1 - 11.0 MODERATE RISK >11.0 HIGH RISK Performed By: #### C MP, PIA, LIPA #### [facility] [address] [address] [address] Bri Light Cholesterol [Mass/Vol] 165 mg/dL Normal <=200 [facility] Comment on above: Performed By: #### C MP, PIA, LIPA #### [facility] [address] [address] [address] Bri Light Cholesterol in HDL [Mass/Vol] 40 mg/dL Normal 40-60 [facility] Comment on above: Performed By: #### C MP, PIA, LIPA #### [facility] [address] [address] [address] Bri Light Cholesterol in LDL [Mass/Vol] 91.4 mg/dL Normal [facility] Comment on above: Performed By: #### C MP, PIA, LIPA #### [facility] [address] [address] [address] Bri Light Cholesterol.total/Angie sterol in HDL [Mass ratio] 4.1 {ratio} Normal [facility] Comment on above: Performed By: #### C MP, PIA, LIPA #### [facility] [address] [address] [address] Bri Light HDL NORMAL > or = 60 mg/dl - LO W CARDIOVASCULAR RISK <40 mg/dl - HIGH CARDIOVASCULAR RISK Normal [facility] Comment on above: Performed By: #### C MP, PIA, LIPA #### [facility] [address] [address] [address] Bri Light LDL CALC NORMAL SEE BELOW Normal [facility] Comment on above: Result Comment: <100 mg/dl OPTIMAL 100 - 129 mg/dl NEAR OR ABOVE OPTIMAL 130 - 159 mg/dl BORDERLINE HIGH 160 - 189 mg/dl HIGH >190 mg/dl VERY HIGH Performed By: #### C MP, PIA, LIPA #### [facility] [address] [place] [address] Dr. Bri Light Triglyceride [Mass/Vol] 168 mg/dL Critically high <=150 [facility] Comment on above: Performed By: #### C MP, PIA, LIPA #### [facility] [address] [place] [address] Dr. Bri Light VLDL CALC 33.6 mg/dL Normal [facility] Comment on above: Performed By: #### C MP, PIA, LIPA #### [facility] [address] [address] [address] Bri Light LIVER PROFILEon 08-22-2022 Albumin [Mass/Vol] 3.5 g/dL Normal 3.4-5.0 [facility] Comment on above: Performed By: #### C MP, PIA, LIPA #### [facility] [address] [place] [address] Dr. Bri Light Albumin/Globulin [Mass ratio] 0.8 {ratio} Normal [facility] Comment on above: Performed By: #### C MP, PIA, LIPA #### [facility] [address] [place] [address] Dr. Bri Light ALP [Catalytic activity/Vol] 85 U/L Normal 46-116 [facility] Comment on above: Performed By: #### C MP, PIA, LIPA #### [facility] [address] [place] [address] Dr. Bri Light ALT [Catalytic activity/Vol] 40 U/L Normal 14-59 [facility] Comment on above: Performed By: #### C MP, PIA, LIPA #### [facility] [address] [place] [address] Dr. Bri Light AST [Catalytic activity/Vol] 15 U/L Normal 15-37 [facility] Comment on above: Performed By: #### C MP, PIA, LIPA #### [facility] [address] [place] [address] Dr. Bri Light BILI, CONJUGATED 0.1 mg/dL Normal 0.0-0.2 [facility] Comment on above: Performed By: #### C MP, PIA, LIPA #### [facility] [address] [place] [address] Dr. Bri Light Bilirubin [Mass/Vol] 0.3 mg/dL Normal 0.2-1.0 [facility] Comment on above: Performed By: #### C MP, PIA, LIPA #### [facility] [address] [place] [address] Dr. Bri Light Globulin (S) [Mass/Vol] 4.6 g/dL Normal [facility] [place] Comment on above: Performed By: #### C MP, PIA, LIPA #### [facility] [address] [place] [address] Dr. Bri Light Protein [Mass/Vol] 8.1 g/dL Normal 6.4-8.2 [facility] Comment on above: Performed By: #### C MP, PIA, LIPA #### [facility] [address] [place] [address] Dr. Bri Light PROF CHEM 8 (BAS METB)on Anion gap [Moles/Vol] 8.3 mmol/L Normal [facility] Comment on above: Performed By: #### C MP, PIA, LIPA #### [facility] [address] [place] [address] Dr. Bri Light Calcium [Mass/Vol] 9.2 mg/dL Normal 8.5-10.1 [facility] Comment on above: Performed By: #### C MP, PIA, LIPA #### [facility] [address] [place] [address] Dr. Bri Light Chloride [Moles/Vol] 104 mmol/L Normal 98-107 [facility] Comment on above: Performed By: #### C MP, PIA, LIPA #### [facility] [address] [place] [address] Dr. Bri Light CO2 [Moles/Vol] 29.5 mmol/L Normal 21.0-32.0 [facility] Comment on above: Performed By: #### C MP, PIA, LIPA #### [facility] [address] [address] [address] Bri Light Creatinine [Mass/Vol] 0.71 mg/dL Normal 0.55-1.02 [facility] Comment on above: Performed By: #### C PIA BONE LIPA #### [facility] [address] [address] [address] Bri Light EGFR-AF [place] >60 Normal >=60 [facility] Comment on above: Performed By: #### C PIA BONE LIPA #### [facility] [address] [address] [address] Bri Light EGFR-NON AF [place] >60 Normal >=60 [facility] Comment on above: Performed By: #### C PIA BONE LIPA #### [facility] [address] [address] [address] Bri Light Glucose [Mass/Vol] 77 mg/dL Normal 74-106 [facility] Comment on above: Performed By: #### C PIA BONE LIPA #### [facility] [address] [address] [address] Bri Light Potassium [Moles/Vol] 3.8 mmol/L Normal 3.5-5.1 [facility] Comment on above: Performed By: #### C PIA BONE LIPA #### [facility] [address] [address] [address] Bri Light Sodium [Moles/Vol] 138 mmol/L Normal 136-145 [facility] Comment on above: Performed By: #### C PIA BONE, LIPA #### [facility] [address] [address] [address] Bri Light Urea nitrogen [Mass/Vol] 12.0 mg/dL Normal 7.0-18.0 [facility] Comment on above: Performed By: #### C PIA BONE, LIPA #### [facility] [address] [address] [address] Bri Light Urea nitrogen/Creatinine [Mass ratio] 16.9 mg/mg Normal [facility] Comment on above: Performed By: #### C PIA BONE LIPA #### [facility] [address] [address] [address] Bri Light TSHon 08-22-2022 TSH 1.727 uIU/mL Normal 0.358-3.740 [facility] Comment on above: Performed By: #### C PIA BONE LIPA #### [facility] [address] [address] [address] Bri Light VITAMIN D 25 OHon 08-22-2022 VIT D 25-OH 33.4 ng/mL Normal [facility] Comment on above: Performed By: #### C PIA BONE LIPEnriqueta #### [facility] [address] [address] [address] Bri Light VIT D RANGES SEE BELOW Normal [facility] Comment on above: Result Comment: <20 ng/mL Vit D deficient 20 - <30 ng/mL Vit D insufficient 30 - 100 ng/mL Vit D sufficient >100 ng/mL Potential Toxicity Performed By: #### C PIA BONE LIPA #### [facility] [address] [address] [address] Bri Light XR FOOT RT MIN [...] VANNA MAYEN Date: 2022-07-22 00:46 Normal [facility] MRI Knee w/o Lefton 05-19-20 MRI Knee [...] by Eusebio Myers on 05/20/2022 0900 Normal [facility] [employer] GLYCOHEMOGLOBIN A1Con 2021 ADA RECOMMENDATION ADA THERAPEUTIC TARG ET 6.0 - 7.0 ACTION SUGGESTED > 7.0 Normal [facility] Comment on above: Performed By: #### C PIA BONE LIPA #### [facility] [address] [address] [address] Bri Lgiht Glucose [Mass/Vol] 246 mg/dL Normal [facility] Comment on above: Performed By: #### C PIA BONE LIPA #### [facility] [address] [address] [address] Bri Light HbA1c (Bld) [Mass fraction] 10.2 % Critically high <=6.0 [facility] Comment on above: Performed By: #### C PIA BONE LIPA #### [facility] [address] [address] [address] Bri Light Vital Signs Date Time Vital Sign Value Performing Clinician Facility 01-24-2025 11:33-0500 Body height 165.1 cm Gerson Pierson MD Work Phone: [facility] 01-24-2025 11:33-0500 Body mass index (BMI) [Ratio] 39.61 kg/m2 Gerson Pierson MD Work Phone: [facility] 01-24-2025 11:33-0500 Body temperature 97.81 [degF] Gerson Pierson MD Work Phone: [facility] 01-24-2025 11:33-0500 Body weight 107.96 kg Gerson Pierson MD Work Phone: [facility] 01-24-2025 11:33-0500 Diastolic blood pressure 86 mm[Hg] Gerson Pierson MD Work Phone: [facility] 01-24-2025 11:33-0500 Heart rate 87 /min Gerson Pierson MD Work Phone: [facility] 01-24-2025 11:33-0500 Respiratory rate 22 /min Gerson Pierson MD Work Phone: [facility] 01-24-2025 11:33-0500 SaO2% (BldA) [Mass fraction] 98 % Gerson Pierson MD Work Phone: [facility] 01-24-2025 11:33-0500 Systolic blood pressure 163 mm[Hg] Gerson Pierson MD Work Phone: [facility] 01-15-2025 13:51-0500 Body height 165.1 cm [facility] 01-15-2025 13:51-0500 Body mass index (BMI) [Ratio] 38.9 kg/m2 [facility] 01-15-2025 13:51-0500 Body weight 106.14 kg [facility] 07-07-2024 13:26-0400 Body height 165.1 cm MD Gerson Pierson Work Phone: [facility] 07-07-2024 13:26-0400 Body mass index (BMI) [Ratio] 39.9 kg/m2 MD Gerson Pierson Work Phone: [facility] 07-07-2024 13:26-0400 Body temperature 98.5 [degF] MD Gerson Pierson Work Phone: [facility] 07-07-2024 13:26-0400 Body weight 108.91 kg MD Gerson Pierson Work Phone: [facility] 07-07-2024 13:26-0400 Diastolic blood pressure 93 mm[Hg] MD Gerson Pierson Work Phone: [facility] 07-07-2024 13:26-0400 Heart rate 95 /min MD Gerson Pierson Work Phone: [facility] 07-07-2024 13:26-0400 SaO2% (BldA) [Mass fraction] 98 % MD Gerson Pierson Work Phone: [facility] 07-07-2024 13:26-0400 Systolic blood pressure 135 mm[Hg] MD Gerson Pierson Work Phone: [facility] 06-11-2024 15:25-0400 Body height 165.1 cm MD Gerson Pierson Work Phone: [facility] 06-11-2024 15:25-0400 Body mass index (BMI) [Ratio] 39.6 kg/m2 MD Gerson Pierson Work Phone: [facility] 06-11-2024 15:25-0400 Body weight 107.95 kg MD Gerson Pierson Work Phone: [facility] 11-15-2023 13:40-0500 Body height 165.1 cm Roberto Rodriguez Other [facility] Other 11-15-2023 13:40-0500 Body mass index (BMI) [Ratio] 41.6 kg/m2 Roberto Rodriguez Other [facility] Other 11-15-2023 13:40-0500 Body weight 113.4 kg Roberto Scovanner Other [facility] Other 09-18-2023 09:00-0400 Body height 634.49 cm Roberto Scovanner Other [facility] Other 09-18-2023 09:00-0400 Body mass index (BMI) [Ratio] 2.82 kg/m2 Roberto Scovanner Other [facility] Other 09-18-2023 09:00-0400 Body weight 113.4 kg Roberto Scovanner Other [facility] Other 09-18-2023 09:00-0400 Diastolic blood pressure 81 mm[Hg] Roberto Scovanner Other [facility] Other 09-18-2023 09:00-0400 Systolic blood pressure 143 mm[Hg] Roberto Scovanner Other [facility] Other 08-14-2023 15:20-0400 Diastolic blood pressure 84 mm[Hg] MD Gerson Pierson Work Phone: [facility] 08-14-2023 15:20-0400 Heart rate 74 /min MD Gerson Pierson Work Phone: [facility] 08-14-2023 15:20-0400 Respiratory rate 16 /min MD Gerson Pierson Work Phone: [facility] 08-14-2023 15:20-0400 SaO2% (BldA) [Mass fraction] 99 % MD Gerson Pierson Work Phone: [facility] 08-14-2023 15:20-0400 Systolic blood pressure 118 mm[Hg] MD Gerson Pierson Work Phone: [facility] 08-14-2023 13:12-0400 Body height 165.1 cm MD Gerson Pierson Work Phone: [facility] 08-14-2023 13:12-0400 Body weight 118.84 kg MD Gerson Pierson Work Phone: [facility] 07-25-2023 14:30-0400 Body height 634.49 cm Roberto Scovanner Other [facility] Other 07-25-2023 14:30-0400 Body mass index (BMI) [Ratio] 2.88 kg/m2 Roberto Scovanner Other [facility] Other 07-25-2023 14:30-0400 Body weight 116.12 kg Roberto Scjackyner Other [facility] Other 07-25-2023 14:30-0400 Diastolic blood pressure 105 mm[Hg] Roberto Scovanner Other [facility] Other 07-25-2023 14:30-0400 Respiratory rate 18 /min Roberto Scovanner Other [facility] Other 07-25-2023 14:30-0400 Systolic blood pressure 161 mm[Hg] Roberto Scovanner Other [facility] Other Encounters Encounter Date Encounter Type Care Provider Facility Start: 02-03-2025 End: 02-03-2025 Patient encounter procedure Gerson Pierson MD Work Phone: [facility] [place] Work Phone: Start: 02-03-2025 End: 02-03-2025 ambulatory Gerson Pierson Facility:[facility] Start: 01-24-2025 End: 01-24-2025 Bamboo flowsheet [facility] MD [facility] Start: 01-24-2025 End: 01-24-2025 Bamboo flowsheet Gerson Pierson MD Work Phone: [facility] Start: 01-24-2025 End: 01-24-2025 Office outpatient visit 25 minutes Gerson Pierson MD Work Phone: [facility] Comment on above: Type 2 [...] encounter procedure Gerson Pierson MD Work Phone: [facility] Start: 01-24-2025 End: 01-24-2025 ambulatory GERSON PIERSON Not Available Start: 01-15-2025 End: 01-15-2025 ambulatory [facility] Work Phone: Start: 01-15-2025 End: 01-15-2025 Patient encounter procedure [facility] Work Phone: Start: 07-07-2024 End: 07-07-2024 ambulatory MD Gerson Pierson Work Phone: [facility] Work Phone: Start: 07-07-2024 End: 07-07-2024 Departed Referred MD Gerson Pierson Work Phone: [facility] Start: 07-07-2024 End: 07-07-2024 Patient encounter procedure MD Gerson Pierson Work Phone: [facility] Physician [facility] Work Phone: Start: 06-11-2024 End: 06-11-2024 Patient encounter procedure MD Gerson Pierson Work Phone: [facility] Physician [facility] Work Phone: Start: 04-04-2024 End: 04-04-2024 ambulatory FRANCHESCA BOTELLO Not Available Start: 03-21-2024 End: 03-21-2024 ambulatory FRANCHESCA BOTELLO Not Available Start: 03-20-2024 End: 03-20-2024 ambulatory GERSON PIERSON Not Available Start: 02-20-2024 End: 02-20-2024 ambulatory FRANCHESCA BOTELLO Not Available Start: 02-15-2024 End: 02-15-2024 ambulatory GERSON PIERSON Not Available Start: 01-16-2024 Patient encounter procedure Gerson Pierson MD Work Phone: [facility] Start: 11-15-2023 End: 11-15-2023 ambulatory Roberto Rodriguez Other [facility] Other Start: 11-15-2023 Office outpatient vi sit 15 minutes Roberto Rodriguez [facility] Start: 09-26-2023 End: 09-26-2023 ambulatory Roberto Rodriguez Other [facility] Other Start: 09-26-2023 Telephone encounter Roberto Benson [facility] Start: 09-18-2023 End: 09-18-2023 ambulatory Roberto Rodriguez Other [facility] Other Start: 09-18-2023 Office outpatient vi sit 15 minutes Roberto Rodriguez [facility] G[facility] Start: 08-15-2023 End: 08-15-2023 ambulatory Roberto Rodriguez Other [facility] Other Start: 08-15-2023 Telephone encounter Roberto Benson [facility] Start: 08-14-2023 End: 08-14-2023 Admission to same day surgery center MD Gerson Pierson Work Phone: [facility] Work Phone: Start: 08-14-2023 End: 08-14-2023 ambulatory MD Gerson Pierson Work Phone: [facility] Work Phone: Start: 07-25-2023 End: 07-25-2023 ambulatory Roberto Rodriguez Other Located [facility] Other Start: 07-25-2023 Office outpatient ne w 30 minutes Roberto Rodriguez [facility] G[facility]enter[facility] Start: 01-05-2023 End: 01-06-[address] [...] examination without abnormal findings DR GERSON PIERSON [facility] Start: 08-22-2022 End: 08-23-[address] [...] Clinician Start: 02-03-2025 Ultrasonography of abdomen Gerson Piersno MD Work Phone: Start: 08-14-2023 Esophagogastroduodenoscopy MD Gerson Pierson Work Phone: Plan of Treatment Date Care Activity Detail Author Start: 04-23-2025 End: 04-23-2025 Patient encounter procedure 04/23/2025 1:30 PM EDT Office Visit [facility] [address] [place] [id number] Gerson Pierson MD [address] [place] [phone] [facility] Start: 01-24-2025 End: 01-24-2026 Basic metabolic 1998 panel - Serum or Plasma Basic metabolic panel Lab Routine Annual physical exam Expected: 01/24/2025 (Approximate), Expires: 01/24/2026 [facility] Comment on above: Expected: 01/24/2025 (Approximate), Expires: 01/24/2026 Start: 01-24-2025 End: 01-24-2026 CBC W Auto Differential panel - Blood CBC and differential Lab Routine Annual physical exam Expected: 01/24/2025 (Approximate), Expires: 01/24/2026 [facility] Comment on above: Expected: 01/24/2025 (Approximate), Expires: 01/24/2026 Start: 01-24-2025 End: 01-24-2026 Hemoglobin A1c/Hemoglobin.total in Blood Hemoglobin A1c Lab Routine Annual physical exam Expected: 01/24/2025 (Approximate), Expires: 01/24/2026 [facility] Comment on above: Expected: 01/24/2025 (Approximate), Expires: 01/24/2026 Start: 01-24-2025 End: 01-24-2026 Hepatic function 2000 panel - Serum or Plasma Hepatic function panel Lab Routine Annual physical exam Expected: 01/24/2025 (Approximate), Expires: 01/24/2026 [facility] Comment on above: Expected: 01/24/2025 (Approximate), Expires: 01/24/2026 Start: 01-24-2025 End: 01-24-2026 Lipid 1996 panel - Serum or Plasma Lipid panel Lab Routine Annual physical exam Expected: 01/24/2025 (Approximate), Expires: 01/24/2026 [facility] Comment on above: Expected: 01/24/2025 (Approximate), Expires: 01/24/2026 Start: 01-24-2025 End: 03-24-2026 MG Breast - bilateral Screening Bilateral screening mammogram Imaging Routine Breast cancer screening by mammogram Expected: 01/24/2025, Expires: 03/24/2026 [facility] Comment on above: Expected: 01/24/2025 , Expires: 03/24/2026 Start: 01-24-2025 End: 01-24-2026 Microalbumin/Creatinine panel in random Urine Microalbumin / creatinine, urine ratio Lab Routine Type 2 diabetes mellitus with hyperglycemia, without long-term current use of insulin ([facility]) Expected: 01/24/2025 (Approximate), Expires: 01/24/2026 [facility] Work Phone: Comment on above: Expected: 01/24/2025 (Approximate), Expires: 01/24/2026 Start: 01-24-2025 End: 01-24-2026 Thyrotropin [Units/volume] in Serum or Plasma TSH Lab Routine Annual physical exam Expected: 01/24/2025 (Approximate), Expires: 01/24/2026 [facility] Comment on above: Expected: 01/24/2025 (Approximate), Expires: 01/24/2026 Start: 01-24-2025 End: 01-24-2025 Patient encounter procedure 01/24/2025 11:30 AM EST Office Visit [facility] [address] [place] [phone] Gerson Pierson MD [address] [place] [id number] Arrived [facility] Comment on above: Arrived Start: 07-28-2024 Influenza vaccination Influenza Vacc ine (#1) [facility] Start: 07-08-2024 Bacteria identified in Urine by Culture [facility] Start: 07-07-2024 Bacteria identified in Urine by Culture [facility] Start: 11-13-2023 Urine screening for protein Diabetes: Urine Protein Screening [facility] Start: 08-14-2023 [facility] Start: 2021 Screening for malign ant neoplasm of breast Mammogram [facility] Start: 2011 Screening for malign ant neoplasm of cervix [facility] Start: 2002 Screening for malign ant neoplasm of cervix Pap Smear [facility] Start: 1991 Glaucoma screening Diabetes: R etinopathy Screening [facility] Start: 1981 Hemoglobin A1c measurement Diabetes: Hemoglobin A1C [facility] CT Abdomen and Pelvi s W contrast IV [facility] Immunizations Immunization Date Immunization Notes Care Provider Fa ciligui 08-20-2014 influenza virus vacc ine, unspecified formulation Gerson Pierson MD Work Phone: [facility] Payers Date Payer Category Payer Self-pay [id number] 2021 Worker's Compensation [employer] [id number] 2021 Unknown [id number] 2020 Private Health Insurance [facility] MEDICAID [id number] 1981 Unknown [id number] 2.16.840.1.423451.3.579.2 .593 1981 Unknown [id number] 2.16.840.1.866601.3.579.2 .59 1981 Unknown [id number] 2.16.840.1.840560.3.579.2 .59 1981 Unknown [id number] 2.16.840.1.388648.3.579.2 .1981 Unknown [id number] 2.16.840.1.917042.3.579.2 .1981 Unknown [id number] 2.16.840.1.618652.3.579.2 .1981 Unknown [id number] 2.16.840.1.833413.3.579.2 .1981 Unknown [id number] 2.16.840.1.911885.3.579.2 .1981 Unknown [id number] 2.16.840.1.334903.3.579.2 .1981 Unknown [id number] 2.16.840.1.579074.3.579.2 .59 1981 Unknown [id number] 2.16.840.1.700350.3.579.2 .1258 1981 Unknown [id number] 2.16.840.1.362782.3.579.2 .1258 1981 Unknown [id number] 2.16.840.1.567616.3.579.2 .1258 1981 Unknown [id number] 2.16.840.1.654177.3.579.2 .1258 1981 Unknown [id number] 2.16.840.1.905120.3.579.2 .1258 1981 Unknown [id number] 2.16.840.1.987090.3.579.2 .1258 1981 Unknown [id number] 2.16.840.1.836474.3.579.2 .1258 1981 Unknown [id number] 2.16.840.1.956102.3.579.2 .1258 1981 Unknown [id number] 2.16.840.1.220606.3.579.2 .1258 1981 Unknown [id number] 2.16.840.1.609153.3.579.2 .1258 1981 Unknown [id number] 2.16.840.1.887773.3.579.2 .1258 1981 Unknown [id number] 2.16.840.1.927099.3.579.2 .1258 1981 Unknown [id number] 2.16.840.1.514720.3.579.2 .1258 1981 Unknown [id number] 2.16.840.1.876189.3.579.2 .9 1959 Unknown [id number] 1959 Unknown [id number] 1959 Unknown [id number] Medicaid [employer] [id number] Unknown [facility][1] [id number] Unknown [id number] 2.16.840.1.375395.3.579.2 .531 Unknown [id number] 2.16.840.1.079017.3.579.2 .531 Social History Date Type Detail Facility Start: 02-19-2024 End: 01-24-2025 Sex Assigned At [facility] Start: 03-14-2018 End: 08-11-2024 Tobacco smoking status NHIS Never smoked tobacco (finding) [facility] Start: 1980 Sex Assigned At Female F [facility] Start: 01-15-2025 End: 02-04-2025 Sex Female (finding) [facility] Start: 01-16-2024 Tobacco use and exposure Smokeless [...] Equipment Identifier Dates Test one time daily [id number] Start : 08-28-2024 End: 08-28-2025 Goals Date Patient Goal Desired Activity /State Clinical Notes 12-29-2022 to 02-03-2025 Gerson Pierson MD - 01/24/2025 12:52 PM Sonny Pierson MD - 01/24/2025 12:52 PM Sonny Pierson MD - 01/24/2025 12:51 PM Sonny Pierson MD - 01/24/2025 12:51 PM EST Note Date & Type Note Facility 02-03-2025 Radiology Diagnostic study note [facility] [place] [address] Ultrasound Report Signed Patient: Nia Schofield MR#: [id number] : 1980 Acct:[id number] Age/Sex: 44 / F ADM Date: 5 Loc: Room: Type: [facility] Attending Dr: Roberto Rodriguez [employer]ER Ordering Provider: Roberto Rodriguez APRN Date of [...] Walker Jr., D.Luba02/03/2025 11:52 AM Dictation Location: [employer] Tech: Judy Barraza Transcribed By: ONOFRE 02/03/25 1152 Dictated By: Alvaro Walker Jr, DO 02/03/25 1151 Signed By: 02/03/25 1152 [facility] 01-24-2025 History of Present illness Narrative Associated [...] Discussed DASH diet. Associated Problem(s): Diabetic polyneuropathy ([facility]) Symptoms stable and continue elavil. Associated Problem(s): Class 2 severe obesity due to excess calories with serious comorbidity and body mass index (BMI) of 39.0 to 39.9 in adult ([facility]) Weight down 11 pounds. Images from the [...] hyperglycemia, without long-term current use of insulin ([facility]) - Primary Reports BS improved and due [...] Bilateral screening mammogram documented in this encounter [facility] 01-15-2025 Evaluation note Diagnosis Onset Date Resolution Bloating acute January 15, 2025 1:34pm GERD (gastroesophageal reflux disease) acute January 15 025 1:34pm Irritable bowel syndrome with constipation acute January 15 025 1:34pm [facility] Work Phone: 1(286) 867-622007-16-2024 Evaluation note* Author Roberto Rodriguez [facility] Authored June 11, 2024 3:43 pm Patient positive for constip ation, abdominal distention [facility] Work Phone: 1(426) 401-584412-20-2023 Evaluation note* Encounter Date Diagnosis Assessment Notes [...] one month. Oct, Nausea (ICD-10 - R11.0) [facility] Other 10-23-2023 Evaluation note* Encounter Date Diagnosis [...] ONCE AT LUNCH AND ONCE AT BEDTIME. [facility] Other 09-18-2023 Procedure [facility]08-29-2023 Evaluation note* Encounter Date Diagnosis Assessment Notes [...] is to add OTC fiber and probiotic Located [facility] Other 02-02-2023 NotePROCEDURE: XR GI UPPER AIR [...] Electronically authenticated by: DEANDRA BEATTY Date: 2022-12-29 11:51[facility]02-02-2023 NotePROCEDURE: XR GI UPPER AIR KUB [...] Electronically authenticated by: DEANDRA BEATTY Date: 2022-12-29 11:51[facility] noteNo InformationNortLe[facility] Other Evaluation noteNo assessment information [facility] Work Phone: Evaluation note* Diagnosis Type [...] exam Routine [facility] Morbid obesity due to excess calories (CMS/HCC) Type 2 diabetes mellitus with hyperglycemia, without long-term current use of insulin ([facility]/HCC)- Primary Essential hypertension, benign (CMS/HCC) Essential hypertension, [...] (BMI) of 39.0 to 39.9 in adult ([facility] [facility] [place]) Diabetic polyneuropathy associated with type 2 diabetes mellitus ([facility]/HCC) Annual physical exam Routine general medical examination at a health care facility Breast cancer screening by mammogram documented in this encounter [facility] HealthcareHistory and physical note Author Juarez Griffiths [facility] August 14, 2023 2:40pm Note Date/Time August 14, 2023 2:40pm [facility] [address] [place] [address] Gastroenterology H&P Signed Patient: Nia Schofield MR#: [id number] : 1980 Acct:[id number] Age/Sex: 43 / F Adm Date: 3 Loc: Room: Type: [facility] Attending Dr: Juarez Griffiths MD Copies to: [...] MD Documented By: Juarez Griffiths MD 08/14/23 1431 Signed By: <Electronically signed by Juarez Griffiths MD> 08/14/23 1445 [facility] Work Phone: History general Narrative - Reported* Type Description Date Medical History hypertension [facility] Other [facility] Discharge instructions Additional Instructions DISCHARGE [...] problems. -Follow up with PCP. -Office number [phone].[facility] Work Phone: Summary Purpose Family [...] section and content) DATE CREATED AUTHOR 05/21/2022 [facility] dical Specialist DATE CREATED AUTHOR AUTHOR'S ORGANIZ ATION 01/09/2023 [facility] DATE CREATED AUTHOR AUTHOR'S ORGANIZ ATION 01/26/2025 [facility] d[facility] Specialists EPIC DATE CREATED AUTHOR AUTHOR'S ORGANIZ ATION 02/04/2025 [facility] REASON FOR VISIT (unrecogniz ed [...] January 15, 2025 End: January 15, 2025 Mental Health Associate Relationship Specialty Start Date End Date Gerson Pierson MD [address] [place] [id number] PCP - [facility] 12/25/23 Gerson Pierson MD [address] [place] [id number] PCP [facility] 08/27/24 Mental Health Associate Relationship Specialty Start Date End Date Gerson Pierson MD [address] [place] [id number] PCP - [facility] 12/25/23 Gerson Pierson MD [address] [place] [id number] [facility] 08/27/24 Team Status: Inactive Member Role Status [...] BE BASED ON THE PRIMARY CLINICAL RECORDS. [facility] [employer] [facility]. provides no warranty or guarantee of the accuracy or completeness of information in this document.
== END 2025-08-11 15:28 | disposition home or self-care (01) ==
PROVIDERS: PCP Family Medicine; Visit Provider Family Medicine
DX: E11.65 Type 2 diabetes mellitus with hyperglycemia (principal)
CPT/HCPCS: 36415; 83036